=== PATIENT | male | born 1950 | race Two or more races ===

== ENCOUNTER 2025-06-03 14:25 | Inpatient (IN) | payer OTHER, MEDICAID ==
[~2025-06-03] VITALS: Ht 172.7 cm; Wt 73.4 kg
[2025-06-03] VITALS (15 sets, daily range): BP systolic 82–125; BP diastolic 49–85; PULSE 59–101; RESP 7–26; TEMP 97.3–97.9; O2SAT 91–100
--- NOTE | 2025-06-03 14:48 | ED.PDOC ---
GI ASSESSMENT HPI Comments 74 y/o M, presents to the ED for CC of abdominal pain. Patient states, he has been experiencing diffuse abdominal pain sudden onset, 1000 today (06/03/25). Patient relays, to have further associated symptoms of nausea. Patient denies vomiting, diarrhea, constipation, or urinary symptoms. No other symptoms or modifying factors are present at this time. Chief Complaint: Abdominal Pain Time Seen by MD: 14:45 Reviewed Notes: Nurses Notes, Medications, Allergies Allergies: Coded Allergies: NO KNOWN ALLERGIES (Unverified , 06/03/25) Information Source: Patient Mode of Arrival: Wheelchair Timing: Hours Duration: Since onset Prehospital treatment: None Vomitus: None Stool: Normal Severity: Moderate Recent: None Recent Hx of: None Pain Location: Diffuse Modifying Factors: Nothing Associated sign and symptoms: Nausea, Abdominal Pain Past Medical History PAST MEDICAL HISTORY: Denies Surgical History: Denies all surgeries Family History Family History: Unknown Social History Smoker: Non-Smoker Alcohol: Denies ETOH Use Drugs: Denies Drug Use Lives In: Home Constitutional: denies: chills, diaphoresis, fatigue, fever, malaise, sweats, weakness, others EENTM: denies: blurred vision, double vision, ear bleeding, ear discharge, ear drainage, ear pain, ear ringing, eye pain, eye redness, hearing loss, mouth pain, mouth swelling, nasal discharge, nose bleeding, nose congestion, nose pain, photophobia, tearing, throat pain, throat swelling, voice changes, others Respiratory: denies: cough, hemoptysis, orthopnea, SOB at rest, shortness of breath, SOB with excertion, stridor, wheezing, others Cardiovascular: denies: chest pain, dizzy spells, diaphoresis, Dyspnea on exertion, edema, irregular heart beat, left arm pain, lightheadedness, palpitations, PND, syncope, others Gastrointestinal: reports: abdominal pain, nausea; denies: abdomen distended, blood streaked bowels, constipated, diarrhea, dysphagia, difficulty swallowing, hematemesis, melena, poor appetite, poor fluid intake, rectal bleeding, rectal pain, vomiting, others Genitourinary: denies: burning, dysuria, flank pain, frequency, hematuria, incontinence, penile discharge, penile sore, pain, testicle pain, testicle swelling, urgency, others Neurological: denies: dizziness, fainting, headache, left sided numbness, left sided weakness, numbness, paresthesia, pre-existing deficit, right sided numbness, right sided weakness, seizure, speech problems, tingling, tremors, weakness, others Musculoskeletal: denies: back pain, gout, joint pain, joint swelling, muscle pain, muscle stiffness, neck pain, others Integumetry: denies: bruises, change in color, change in hair/nails, dryness, laceration, lesions, lumps, rash, wounds, others Allergic/Immunocompromised: denies: Difficulty Healing, Frequent Infections, Hives, Itching, others Hematologic/Lymphatic: denies: anemia, blood clots, easy bleeding, easy bruising, swollen glands, others Endocrine: denies: excessive hunger, excessive sweating, excessive thirst, excessive urination, flushing, intolerance to cold, intolerance to heat, unexplained weight gain, unexplained weight loss, others Psychiatric: denies: anxiety, bipolar disorder, depression, hopeless, panic disorder, schizophrenia, sleepless, suicidal, others All Other Systems: Reviewed and Negative Physical Exam General Appearance: Moderate Distress HEENT: Normal ENT Inspection, Pharynx Normal, TMs Normal Neck: Full Range of Motion, Non-Tender, Normal, Normal Inspection Respiratory: Chest Non-Tender, Lungs Clear, No Accessory Muscle Use, No Respiratory Distress, Normal Breath Sounds Cardiovascular: No Edema, No JVD, No Murmur, No Gallop, Normal Peripheral Pu lses, Regular Rate/Rhythm Breast Exam: Deferred Gastrointestinal: No Organomegaly, Non Tender, No Pulsatile Mass, Normal Bowel Sounds, Soft Genitalia: Deferred Pelvic: Deferred Rectal: Deferred Extremities: No calf tenderness, Normal capillary refill, Normal inspection, Normal range of motion, Non-tender, No pedal edema Musculoskeletal : Apperance: Normal Neurologic: Alert, bellows assembler II-XII nml as Tested, No Motor Deficits, Normal Affect, Normal Mood, No Sensory Deficits Cerebellar Function: Normal Reflexes: Normal Skin: Dry, Normal Color, Warm Peripheral Pulses: 3+ Radial (R), 3+ Radial (L) Lymphatic: No Adenopathy Was a procedure done? Was a procedure done?: No GI differential Dx Differential Diagnosis: Constipation, Diverticular disease, Esophagitis, Gastritis/PUD, Gastroenteritis, Electrolyte Imbalance, Bacterial, Viral X-Ray, Labs, Meds, VS Vital Signs Date Time Temp Pulse Resp B/P (MAP) Pulse Ox O2 Delivery O2 Flow Rate FiO2 06/03/25 15:14 100 18 152/94 (113) 98 06/03/25 15:14 100 18 98 Room Air 06/03/25 14:38 84 06/03/25 14:26 97.2 90 18 150/90 92 97.2 Lab Test 06/03/25 15:30 06/03/25 15:11 Range/Units Lactic Acid Level Pending White Blood Count 18.9 H 4.4-10.8 10^3/uL Red Blood Count 4.91 4.5-5.90 10^6/uL Hemoglobin 15.0 13.5-17.5 g/dL Hematocrit 45.4 41.0-53.0 % Mean Corpuscular Volume 92.6 80.0-100.0 fL Mean Corpuscular Hemoglobin 30.6 28.0-32.0 pg Mean Corpuscular Hemoglobin Concent 33.0 32.0-36.0 g/dL Red Cell Distribution Width 12.8 11.8-14.3 % Platelet Count 329 140-450 10^3/uL Mean Platelet Volume 7.8 6.9-10.8 fL Neutrophils (%) (Auto) 87.8 H 37.0-80.0 % Lymphocytes (%) (Auto) 8.8 L 10.0-50.0 % Monocytes (%) (Auto) 2.5 0.0-12.0 % Eosinophils (%) (Auto) 0.6 0.0-7.0 % Basophils (%) (Auto) 0.3 0.0-2.0 % Neutrophils # (Auto) 16.6 H 1.6-8.6 10 ^3/uL Lymphocytes # (Auto) 1.7 0.4-5.4 10 ^3/uL Monocytes # (Auto) 0.5 0-1.3 10 ^3/uL Eosinophils # (Auto) 0.1 0-0.8 10 ^3/uL Basophils # (Auto) 0.1 0-0.2 10 ^3/uL Nucleated Red Blood Cells 0.1 % Sodium Level 141 136-145 mmol/L Potassium Level 3.6 3.5-5.1 mmol/L Chloride Level 102 98-107 mmol/L Carbon Dioxide Level 28 20-31 mmol/L Anion Gap 11 5-15 Blood Urea Nitrogen 11 9-23 mg/dL Creatinine 1.04 0.700-1.30 mg/dL Glomerular Filtration Rate Calc 76 >90 mL/min BUN/Creatinine Ratio 10.6 10.0-20.0 Serum Glucose 194 H 74-106 mg/dL Calcium Level 9.4 8.7-10.4 mg/dL Total Bilirubin 0.6 0.2-1.0 mg/dL Aspartate Amino Transferase (AST) 18 13-40 U/L Alanine Aminotransferase (ALT) 11 7-40 U/L Alkaline Phosphatase 95 46-116 U/L Troponin I High Sensitivity 17 </=54 ng/L Total Protein 7.5 5.7-8.2 g/dL Albumin 4.2 3.2-4.8 g/dL Patient alert. Complaining of abdominal pain. Vitals stable. Answering questions. Blood pressure slightly elevated. Was given clonidine. Possibly will need colonoscopy. Explained to the patient. Continue to be monitoring. Time of 1ST Reevaluation: 15:15 Reevaluation 1ST: Unchanged Patient Education/Counseling: Diagnosis, Treatment Family Education/Counseling: No Family Present SEPSIS Sepsis Screen Date sepsis recognized/suspect: Jun 03, 2025 Time Sepsis recognized/suspect: 1428 Recent Procedure: No On Antibiotic Therapy: No Respiratory Rate >20: No Heart Rate >90: No Temp<36 C (96.8 F) or >38.3 C: No SBP <90 or MAP <65 mmHG: No New Acute Mental Status Change: No Is the patient on CPAP, BIPAP,: No Physician Orders Electrocardigram (06/03/25 14:31) Ct Ab Pel Wo Con-No Oral Or Iv (06/03/25 14:41) Urinalysis (06/03/25 14:41) Lactic Acid W/ Reflex Order (06/03/25 15:30) Blood Culture (06/03/25 15:30) Ceftriaxone 1gm/50ml (Rocephin) (06/03/25 15:45) Metronidazole 500mg/100ml (Flagyl 500mg/ (06/03/25 15:45) Sodium Chloride 0.9% (06/03/25 15:45) Sodium Chloride 0.9% (06/03/25 15:45) * Surgical Consult (06/03/25 ) Small Bowel Series-W Gastrogra (06/03/25 15:59) Ng/Orogastric Tube To Lis (06/03/25 15:59) Vital Signs Date Time Temp Pulse Resp B/P (MAP) Pulse Ox O2 Delivery O2 Flow Rate FiO2 06/03/25 15:14 100 18 152/94 (113) 98 06/03/25 15:14 100 18 98 Room Air 06/03/25 14:38 84 06/03/25 14:26 97.2 90 18 150/90 92 97.2 Laboratory Tests Test 06/03/25 15:11 06/03/25 15:30 White Blood Count 18.9 10^3/uL (4.4-10.8) H Lactic Acid Level Pending Departure 1 Departure Time of Disposition: 15:19 Impression: Primary Impression: Incarcerated hernia Additional Impression: Sepsis, unspecified organism Qualified Codes: A41.9 - Sepsis, unspecified organism Disposition: ADMITTED INPATIENT Admit to: Med Surg Condition: Guarded Critical Care Note Critical Care Time?: Yes (90 min-critical care time only) Stability Stability form required: No Heart Score Heart Score: Heart Score Response (Comments) Value History Slightly Suspicious 0 EKG Normal 0 Age >65 2 Risk Factors >3 or Hx ASHD 2 Troponin Normal limit 0 Total 4 I personally scribed for MALVIN EVANS MD ([email or web address]) on 06/03/25 at 14:47. Electronically submitted by Deana Hennessy [email or web address]). MALVIN EVANS MD Jun 03, 2025 14:47
[2025-06-03 15:18] LABS: Hematocrit 45.4 % (41.0-53.0); Hemoglobin 15.0 g/dL (13.5-17.5); Mean Corpuscular Hemoglobin 30.6 pg (28.0-32.0); Mean Corpuscular Volume 92.6 fL (80.0-100.0); Nucleated Red Blood Cells % 0.1 %
[2025-06-03 15:32] LABS: Alanine Aminotransferase 11 U/L (7-40); Albumin 4.2 g/dL (3.2-4.8); Alkaline Phosphatase 95 U/L (46-116); Anion Gap 11 (5-15); BUN/Creatinine Ratio 10.6 (10.0-20.0); Bilirubin, Total 0.6 mg/dL (0.2-1.0); Blood Urea Nitrogen 11 mg/dL (9-23); Calcium 9.4 mg/dL (8.7-10.4); Carbon Dioxide 28 mmol/L (20-31); Chloride 102 mmol/L (98-107); Glucose 194 mg/dL (74-106); Potassium 3.6 mmol/L (3.5-5.1); Sodium 141 mmol/L (136-145); Total Protein 7.5 g/dL (5.7-8.2)
[2025-06-03] MEDS: SODIUM CHLORIDE 0.9% 1,000 ML IV ONE ×2 (15:45→16:15)
--- NOTE | 2025-06-03 15:47 | DVH ---
Exam: CT CT AB PEL WO CON-NO ORAL OR IV History: Colitis. Comparison Study: None Technique: Multidetector spiral CT of the abdomen and pelvis was performed from lung bases to pubic s ymphysis. Imaging was performed without intravenous contrast. Coronal and sagittal multiplanar reform ats were obtained from the axial data set by the technologist. Radiation Dose : 1. Abdomen/Pelvis: CTDIvol 11.1 mGy, DLP 674.1 mGy*cm. Findings: Evaluation of vasculature and solid organs is limited due to lack of intravenous contrast use. Lung Bases: Moderate right pleural effusion. Visualized portions of the heart and pericardium are unr emarkable. Liver: The liver is small with nodular contour. Gallbladder and Biliary Tree: The gallbladder is unremarkable. No intrahepatic or extrahepatic bilia ry ductal dilatation. Spleen: Unremarkable Pancreas: The pancreas is grossly unremarkable. Adrenal Glands: There is a 1.4 cm low-density left adrenal nodule. The right adrenal gland shows thi ckening. Kidneys: Bilateral renal cysts. There is a 5 mm nonobstructive left renal calculus. GI tract: The stomach is grossly normal in appearance. There is a left inguinal hernia containing sma ll bowel loops. There is dilatation of the bowel loops within the hernia with mesenteric edema and m ild mucosal thickening. Sigmoid colon is also contained in the left inguinal hernia. There is mild mu cosal thickening of the rectum. No acute appendicitis. Peritoneum/mesentery/retroperitoneum. No evidence of free intraperitoneal air. No ascites. No evidenc e of suspicious lymphadenopathy. Abdominal Wall: Unremarkable. Vasculature: The visualized abdominal aorta is normal in size and caliber. Evaluation of abdominal a nd pelvic vessels is limited due to lack of intravenous contrast. Urinary Bladder: Grossly unremarkable for degree of distention. Pelvic Organs: The prostate is enlarged measuring 6.6 cm. Musculoskeletal: No aggressive focal bony lesions, acute fractures or dislocation. Multilevel lumbar spondylosis. IMPRESSION: 1. Left inguinal hernia containing small bowel loops and sigmoid colon. 2. There is dilatation of the small bowel loops within the hernia with mesenteric edema and mild muco allison thickening. Findings highly suspicious for incarcerated bowel. 3. Moderate right pleural effusion. 4. Small liver with nodular contour suspicious for cirrhosis. 5. Prostatomegaly.
[2025-06-03] MEDS: ONDANSETRON HCL 4 MG/2 ML VIAL IV ONE (16:11)
[2025-06-03] MEDS: MORPHINE SULFATE INJ 2 MG/ml SYRG IV ONE (16:15)
[2025-06-03 16:20] LABS: Lactic Acid w/Reflex 2.4 mmol/L (0.4-2.0)
[2025-06-03 16:38] LABS: Urine Protein, UAD Negative (Negative)
--- NOTE | 2025-06-03 17:09 | DVH ---
CHEST RADIOGRAPH Indication: NG TUBE PLACEMTENT VERIFICATION. Technique: Single frontal view of the chest was obtained Comparison: None FINDINGS: Lines and Tubes: Enteric tube is in satisfactory position. Lungs: Elevated right hemidiaphragm with right upper to mid lung zone and right basilar opacity. Mini mal blunting of the right costophrenic angle. No pneumothorax. Cardiomediastinal contours: Unremarkable Bones: No acute osseous abnormality. Punctate densities overlying the neck and left shoulder region w hich are most likely external to the patient. IMPRESSION: Trace right-sided pleural effusion with right upper to mid lung zone and right basilar atelectasis. Enteric tube is in satisfactory position.
[2025-06-03] MEDS: HYDROmorphone HCL 2 MG/ML VL/or syr IV ONE ×2 (17:15→19:00)
[2025-06-03 17:18] LABS: INR 1.02 (0.9-1.15); Partial Thromboplastin Time 26.9 SEC (24.5-34.5); Prothrombin Time 10.8 sec (9.3-11.8)
--- NOTE | 2025-06-03 17:37 | DVHINCON2 ---
Date of service: Jun 03, 2025 Allergies: Coded Allergies: NO KNOWN ALLERGIES (Unverified , 06/03/25) Vital Signs Vital Signs Date Time Temp Pulse Resp B/P (MAP) Pulse Ox O2 Delivery O2 Flow Rate FiO2 06/03/25 16:30 101 26 94 Room Air* 0 21 06/03/25 16:15 170/96 06/03/25 14:26 97.2 97.2 Labs/Diagnostic Data Labs Test 06/03/25 17:15 06/03/25 15:30 06/03/25 15:11 Range/Units Urine Color Light-yellow Yellow Urine Clarity Turbid H Clear Urine pH 7.5 5.0-9.[address] 1.010 1.001-1.035 Urine Protein Negative Negative Urine Ketones Negative Negative Urine Blood Negative Negative /uL Urine Nitrite Negative Negative Urine Bilirubin Negative Negative Urine Urobilinogen Normal Negative mg/dL Urine Leukocyte Esterase Negative Negative /uL Urine RBC 1 0 - 3 /hpf Urine Microscopic WBC 6 H 0-3 /HPF Urine Squamous Epithelial Cells Few <5 /hpf Urine Bacteria None seen None Seen /hpf Urine Glucose Normal Normal mg/dL Lactic Acid Level 2.4 *H 0.4-2.0 mmol/L White Blood Count 18.9 H 4.4-10.8 10^3/uL Red Blood Count 4.91 4.5-5.90 10^6/uL Hemoglobin 15.0 13.5-17.5 g/dL Hematocrit 45.4 41.0-53.0 % Mean Corpuscular Volume 92.6 80.0-100.0 fL Mean Corpuscular Hemoglobin 30.6 28.0-32.0 pg Mean Corpuscular Hemoglobin Concent 33.0 32.0-36.0 g/dL Red Cell Distribution Width 12.8 11.8-14.3 % Platelet Count 329 140-450 10^3/uL Mean Platelet Volume 7.8 6.9-10.8 fL Neutrophils (%) (Auto) 87.8 H 37.0-80.0 % Lymphocytes (%) (Auto) 8.8 L 10.0-50.0 % Monocytes (%) (Auto) 2.5 0.0-12.0 % Eosinophils (%) (Auto) 0.6 0.0-7.0 % Basophils (%) (Auto) 0.3 0.0-2.0 % Neutrophils # (Auto) 16.6 H 1.6-8.6 10 ^3/uL Lymphocytes # (Auto) 1.7 0.4-5.4 10 ^3/uL Monocytes # (Auto) 0.5 0-1.3 10 ^3/uL Eosinophils # (Auto) 0.1 0-0.8 10 ^3/uL Basophils # (Auto) 0.1 0-0.2 10 ^3/uL Nucleated Red Blood Cells 0.1 % Prothrombin Time 10.8 9.3-11.8 sec Prothrombin Time INR 1.02 0.9-1.15 Activated Partial Thromboplast Time 26.9 24.5-34.5 SEC Sodium Level 141 136-145 mmol/L Potassium Level 3.6 3.5-5.1 mmol/L Chloride Level 102 98-107 mmol/L Carbon Dioxide Level 28 20-31 mmol/L Anion Gap 11 5-15 Blood Urea Nitrogen 11 9-23 mg/dL Creatinine 1.04 0.700-1.30 mg/dL Glomerular Filtration Rate Calc 76 >90 mL/min BUN/Creatinine Ratio 10.6 10.0-20.0 Serum Glucose 194 H 74-106 mg/dL Calcium Level 9.4 8.7-10.4 mg/dL Total Bilirubin 0.6 0.2-1.0 mg/dL Aspartate Amino Transferase (AST) 18 13-40 U/L Alanine Aminotransferase (ALT) 11 7-40 U/L Alkaline Phosphatase 95 46-116 U/L Troponin I High Sensitivity 17 </=54 ng/L Total Protein 7.5 5.7-8.2 g/dL Albumin 4.2 3.2-4.8 g/dL Assessment 74 YEAR OLD MALE WITH ONE DAY HISTORY OF SEVERE ABDOMINAL PAIN HAS A VERY LARGE INGUINO -SCROTAL HERNIA IN THE LEFT GROIN WHICH IS EXQUISITELY TENDER TO PALPATION, ABDOMEN IS DISTENDED AND TENDER TO PALPATION, WBC IS MARKEDLY ELEVATED WITH LEFT SHIFT AND HIS LACTIC ACID LEVEL IS ELEVATED, HE IS A HEAVY ALCOHOL DRINKER AND HAS CIRRHOTIC LIVER ON CT SCAN , HE JUST HAD A RIGHT LUNG OPERATION FOR LUNG CANCER OPERATION TO REPAIR INCARCERATED LEFT INGUINAL HERNIA ANSD POSSIBLE BOWEL RESECTION EXPLAINED TO PATGIENT AND HIS FAMILY, QWERE RISKS AND COMPLIC ATIONS. Plan discussed with: Patient, Spouse, Son FISPAIGE MEJIA MD Jun 03, 2025 17:37
[2025-06-03] MEDS ORDERED: ETOMIDATE (2MG/ML) 20ML VIAL IV ONE (18:30)
[2025-06-03] MEDS ORDERED: ONDANSETRON HCL 4 MG/2 ML VIAL ONE (18:30)
[2025-06-03] MEDS ORDERED: LIDOCAINE 2% (LOCAL ANESTH.) PF 5ml SDV ONE (18:30)
[2025-06-03] MEDS ORDERED: HYDROmorphone HCL 2 MG/ML VL/or syr ONE (18:30)
[2025-06-03] MEDS ORDERED: GLYCOPYRROLATE 0.2 MG/ML 1ML VIAL ONE (18:30)
[2025-06-03] MEDS ORDERED: PROPOFOL 10 MG/ML 20 ML IV ONE (18:30)
[2025-06-03] MEDS ORDERED: KETAMINE 50mg/ML 1ml syringe ONE (18:30)
[2025-06-03] MEDS ORDERED: ROCURONIUM 10MG/ML 10ML VIAL IV ONE (18:30)
[2025-06-03] MEDS ORDERED: MIDAZOLAM HCL 2MG/2ML 2ml VIAL (1mg/ml) ONE (18:31)
[2025-06-03] MEDS: LIDOCAINE W/ EPINEPHRINE 1% 20ML VIAL ONE (18:55)
[2025-06-03] MEDS: BUPIVACAINE 0.25% INJ 50ML VIAL ONE (18:56)
[2025-06-03] MEDS: ceFAZolin 1GM/50ML 50 ML IV ONE (19:00)
[2025-06-03] MEDS: HYDROmorphone HCL 2 MG/ML VL/or syr IV PRN (19:10)
[2025-06-03] MEDS ORDERED: fentaNYL CITRATE 100 MCG/2 ML VL IV PRN (19:15)
[2025-06-03] MEDS: ACCU-CHEK COMFORT CURVE STRIP VI ONE (19:15)
[2025-06-03] MEDS ORDERED: MIDAZOLAM HCL 2MG/2ML 2ml VIAL (1mg/ml) IV PRN (19:15)
[2025-06-03] MEDS: MIDAZOLAM DRIP 100 mg/100mL NS 100 ML IV SCH (19:30)
[2025-06-03] MEDS ORDERED: SUGAMMADEX 200mg/2ml Vial (100MG/ML) IV ONE (19:35)
--- NOTE | 2025-06-03 19:39 | DVH ---
CHEST RADIOGRAPH Indication: S/P O.R. INTUBATION Technique: Single frontal view of the chest was obtained Comparison: XY CHEST PORTABLE on DOS: 06/03/25 FINDINGS: Lines and Tubes: Endotracheal tube 7.5 cm above the antonio. Enteric tube below the left diaphragm in the stomach. Lungs: Cardiopulmonary findings not significantly changed from chest x-ray done at 4:34 p.m. On same- day Pleura: No effusion. No pneumothorax. Cardiomediastinal contours: Unremarkable Bones: No acute osseous abnormality. IMPRESSION: 1. Endotracheal tube 7.5 cm above the antonio. 2. Enteric tube below the left diaphragm in the stomach. 3. No significant change in the cardiopulmonary findings from chest x-ray of 1634 same day..
[2025-06-03] MEDS: fentaNYL CITRATE 100 MCG/2 ML VL ONE (19:51)
--- NOTE | 2025-06-03 20:46 | DVHOP ---
DATE OF SURGERY: 06/03/2025 PREOPERATIVE DIAGNOSIS: Incarcerated left inguinal hernia with small bowel obstruction. POSTOPERATIVE DIAGNOSIS: Incarcerated left inguinal hernia with small bowel obstruction. SURGEON: Dwight Ramirez MD FITNESS AND WELLNESS INSTRUCTOR: Chaitanya Smith NP ANESTHESIA: General endotracheal. ANESTHESIOLOGIST: Dr. Hernandez. PROCEDURE: Repair of incarcerated left inguinal scrotal hernia. DESCRIPTION OF PROCEDURE: The patient has a giant left inguinal scrotal hernia containing small bowel and colon. He has been complaining of abdominal pain. He has on CT scan been found to have an incarcerated left inguinal hernia. Taken to the operating room. General anesthesia administered by Dr. Hernandez. Abdomen and scrotum and groin were prepped and draped. Incision was made over the inguinal area and deepened with electrocautery onto the fibers of the external oblique aponeurosis. The external ring was identified, tremendous amount of inflammatory changes and attenuation of normal anatomy was encountered. The inguinal ligament was divided. The ilioinguinal nerve was identified, reflected, and protected. The hernia was then encircled with a [place] drain and retracted laterally. The sac was opened and contained numerous loops of small bowel and colon and hemorrhagic fluid. The bowel appeared viable. It was reduced into the peritoneal cavity. The hernia sac was from cremasteric fibers and from the cord structures. It was twisted on itself, traced high up into the internal inguinal ring where it was doubly ligated. The excess peritoneum was excised and submitted. The hernia floor was repaired using nonabsorbable sutures through conjoined tendon and reflecting portion of the Poupart's ligament. The repair was carried out to the internal ring where it was allowing the insertion of a forceps in order not to compress the cord vasculature. Testicle was then returned into its normal anatomical position. A Ronnie-Browning drain was placed into the scrotum adjacent to the testicle and exteriorized through the incision. Following assurance of complete hemostasis, closure was accomplished utilizing 2-0 Monocryl sutures, Dermabond glue, and Steri-Strips. The patient remained stable throughout the procedure. He left the operating room following an accurate needle and sponge count. His and son were thoroughly informed in the waiting room. MD KISHOR Marx/HOSEA TID: [id number] RECEIPT: [id number]
[2025-06-03] MEDS: PROPOFOL 100 ML IV ONE (21:00)
[2025-06-03] MEDS: PROPOFOL 100 ML IV SCH (21:20)
[2025-06-03] MEDS: fentaNYL Drip 2500mCg/250mlNS 250 ML IV SCH (21:20)
[2025-06-03] MEDS ORDERED: DEXTROSE (50%) 50ML SYRG IV PRN (21:30)
[2025-06-03] MEDS ORDERED: ONDANSETRON HCL 4 MG/2 ML VIAL IV PRN (21:30)
[2025-06-03] MEDS ORDERED: MORPHINE SULFATE INJ 2 MG/ml SYRG IV PRN (21:30)
[2025-06-03] MEDS ORDERED: NITROGLYCERIN 0.4 MG SL TAB SL PRN (21:30)
[2025-06-03] MEDS ORDERED: ACETAMINOPHEN 650 MG RECT SUPP PR PRN (21:30)
--- NOTE | 2025-06-03 21:30 | DVHHP2 ---
History of Present Illness Reason for Visit: Incarcerated hernia History of Present Illness The patient is a 74-year-old male with past medical history of diabetes mellitus, sleep apnea, hypertension, hyperlipidemia, lung cancer scheduled chemo on 06/14, and thyroid disease who presented to [facility] ED with complaint of abdominal pain. Patient reports, he has been experiencing diffuse abdominal pain sudden onset, rating 8/10 numeric scale, associated with nausea. Patient was seen and evaluated in the ED, laboratory data shows WBC 18.9, platelets 329, sodium 141, potassium 3.6, BUN 11, creatinine 1.04, GFR 76, glucose 194, hemoglobin A1c 5.7, lactic 3.0, TSH 0.34, troponin 17, blood pressu re 115/78, heart rate 78, temperature 97.4 F, O2 saturation 98% on oxygen. Abdomen/pelvis CT revealing left inguinal hernia containing small bowel loops and sigmoid colon; there is dilatation of the small bowel loops within the hernia with mesenteric edema and mild mucosal thickening, findings highly suspicious for incarcerated bowel. Chest x-ray revealing trace right-sided pleural effusion with right upper to mid lung zone and right bibasilar atelectasis, enteric tube is in satisfactory position. Patient was seen and evaluated by surgical team and was taken to operating room. Patient underwent surgical procedure; repair of incarcerated left inguinal scrotal hernia successfully by Paige Ramirez MD. On my assessment, patient is fully intubated, no diaphoresis, diarrhea, vomiting, fever, no chills. Patient was admitted to intensive care unit for further evaluation and medical management. Past Medical History HLD, DM, HTN, Sleep apnea, Thyroid disease, Lung cancer. Past Surgical History Lung surgery, Hernia repair Family History Reviewed, noncontributory to the management of this case. Past Social History The patient lives at home, denies smoking, alcohol or illicit drugs abuse. Review of Systems Constitutional: Yes: Weakness; No: Fever, Chills, Sweats, Malaise, Other Eyes: No: Pain, Vision change, Conjunctivae inflammation, Eyelid inflammation, Other, Redness ENT: No: Ear pain, Ear discharge, Nose pain, Nose discharge, Nose congestion, Mouth pain, Mouth swelling, Throat pain, Throat swelling, Other Respiratory: No: Cough, Dry, Shortness of breath, SOB with excertion, Wheezing, Hemoptysis, Pleuritic Pain, Sputum, Wheezing, Other Cardiovascular: No: Chest Pain, Palpitations, Orthopnea, Paroxysmal Noc. Dyspnea, Edema, Lt Headedness, Other Gastrointestinal: Nausea, Abdominal Pain; No: Vomiting, Diarrhea, Constipation, Melena, Hematochezia, Other Genitourinary: No Dysuria, No Frequency, No Incontinence, No Hematuria, No Retention, No Other Musculoskeletal: No: other, neck pain, shoulder pain, arm pain, back pain, hand pain, leg pain, foot pain Skin: No: Rash, Lesions, Jaundice, Bruising, Other Neurological: No: Weakness, Numbness, Incoordination, Change in speech, Confusion, Seizures, Other Allergies: Coded Allergies: NO KNOWN ALLERGIES (Unverified , 06/03/25) Medications Current Medications Medications Dose Ordered Sig/Payton Route Start Time Stop Time Status Last Admin Dose Admin Midazolam HCl 100 ml @ 1 mls/hr Q24H IV 06/03/25 19:00 Fentanyl Citrate 250 ml @ 2.5 mls/hr Q24H IV 06/03/25 19:15 Propofol 100 ml @ 2.25 mls/hr Q24H IV 06/03/25 20:00 Exam Vital Signs Vital Signs Date Time Temp Pulse Resp B/P (MAP) Pulse Ox O2 Delivery O2 Flow Rate FiO2 06/03/25 21:14 95 22 100 40 06/03/25 19:10 97.4 97.4 06/03/25 19:10 Mechanical Ventilator 06/03/25 16:30 0 General Appearance: Other (Fully intubated) HEENT: Atraumatic, PERRLA, EOMI, Mucous membr. moist/pink Respiratory: Other (On ventilator) Cardiovascular: Regular rate, Normal S1, Normal S2, No murmurs Abdominal: Normal bowel sounds, Soft, No tenderness, No hepatospenomegaly, No masses Extremities: No clubbing, No cyanosis, No edema, Normal pulses, No tenderness/swelling Skin: No rashes, No significant lesion Neuro: Normal tone, Reflexes 2+, Other (Generalized weakness) Psych/Mental Status: Mental status NL, Other (Unobtainable) Labs/Xrays Labs Test 06/03/25 17:32 06/03/25 17:15 06/03/25 15:11 Range/Units Lactic Acid Level 3.0 *H 0.4-2.0 mmol/L Urine Color Light-yellow Yellow Urine Clarity Turbid H Clear Urine pH 7.5 5.0-9.0 Urine Specific [place] 1.010 1.001-1.035 Urine Protein Negative Negative Urine Ketones Negative Negative Urine Blood Negative Negative /uL Urine Nitrite Negative Negative Urine Bilirubin Negative Negative Urine Urobilinogen Normal Negative mg/dL Urine Leukocyte Esterase Negative Negative /uL Urine RBC 1 0 - 3 /hpf Urine Microscopic WBC 6 H 0-3 /HPF Urine Squamous Epithelial Cells Few <5 /hpf Urine Bacteria None seen None Seen /hpf Urine Glucose Normal Normal mg/dL White Blood Count 18.9 H 4.4-10.8 10^3/uL Red Blood Count 4.91 4.5-5.90 10^6/uL Hemoglobin 15.0 13.5-17.5 g/dL Hematocrit 45.4 41.0-53.0 % Mean Corpuscular Volume 92.6 80.0-100.0 fL Mean Corpuscular Hemoglobin 30.6 28.0-32.0 pg Mean Corpuscular Hemoglobin Concent 33.0 32.0-36.0 g/dL Red Cell Distribution Width 12.8 11.8-14.3 % Platelet Count 329 140-450 10^3/uL Mean Platelet Volume 7.8 6.9-10.8 fL Neutrophils (%) (Auto) 87.8 H 37.0-80.0 % Lymphocytes (%) (Auto) 8.8 L 10.0-50.0 % Monocytes (%) (Auto) 2.5 0.0-12.0 % Eosinophils (%) (Auto) 0.6 0.0-7.0 % Basophils (%) (Auto) 0.3 0.0-2.0 % Neutrophils # (Auto) 16.6 H 1.6-8.6 10 ^3/uL Lymphocytes # (Auto) 1.7 0.4-5.4 10 ^3/uL Monocytes # (Auto) 0.5 0-1.3 10 ^3/uL Eosinophils # (Auto) 0.1 0-0.8 10 ^3/uL Basophils # (Auto) 0.1 0-0.2 10 ^3/uL Nucleated Red Blood Cells 0.1 % Prothrombin Time 10.8 9.3-11.8 sec Prothrombin Time INR 1.02 0.9-1.15 Activated Partial Thromboplast Time 26.9 24.5-34.5 SEC Sodium Level 141 136-145 mmol/L Potassium Level 3.6 3.5-5.1 mmol/L Chloride Level 102 98-107 mmol/L Carbon Dioxide Level 28 20-31 mmol/L Anion Gap 11 5-15 Blood Urea Nitrogen 11 9-23 mg/dL Creatinine 1.04 0.700-1.30 mg/dL Glomerular Filtration Rate Calc 76 >90 mL/min BUN/Creatinine Ratio 10.6 10.0-20.0 Serum Glucose 194 H 74-106 mg/dL Calcium Level 9.4 8.7-10.4 mg/dL Total Bilirubin 0.6 0.2-1.0 mg/dL Aspartate Amino Transferase (AST) 18 13-40 U/L Alanine Aminotransferase (ALT) 11 7-40 U/L Alkaline Phosphatase 95 46-116 U/L Troponin I High Sensitivity 17 </=54 ng/L Total Protein 7.5 5.7-8.2 g/dL Albumin 4.2 3.2-4.8 g/dL PATIENT: DOMINIQUE STRONG ACCT: [id number] UNIT: [id number] : 1950 LOC: ER ROOM / BED: / AGE / SEX: 74 / M ADM STATUS: REG ER SERVICE 1441 ORDERING PHYSICIAN: MALVIN EVANS MD PROCEDURE(s): ABPL - CT AB PEL WO CON-NO ORAL OR IV REASON: colitis ORDER NUMBER(s): [id number], ACCESSION NUMBER(s): [id number] Exam: CT CT AB PEL WO CON-NO ORAL OR IV History: Colitis. Comparison Study: None Technique: Multidetector spiral CT of the abdomen and pelvis was performed from lung bases to pubic symphysis. Imaging was performed without intravenous contrast. Coronal and sagittal multiplanar reformats were obtained from the axial data set by the technologist. Radiation Dose: 1. Abdomen/Pelvis: CTDIvol 11.1 mGy, DLP 674.1 mGy*cm. Findings: Evaluation of vasculature and solid organs is limited due to lack of intravenous contrast use. Lung Bases: Moderate right pleural effusion. Visualized portions of the heart and pericardium are unremarkable. Liver: The liver is small with nodular contour. Gallbladder and Biliary Tree: The gallbladder is unremarkable. No intrahepatic or extrahepatic biliary ductal dilatation. Spleen: Unremarkable Pancreas: The pancreas is grossly unremarkable. Adrenal Glands: There is a 1.4 cm low-density left adrenal nodule. The right adrenal gland shows thickening. Kidneys: Bilateral renal cysts. There is a 5 mm nonobstructive left renal calculus. GI tract: The stomach is grossly normal in appearance. There is a left inguinal hernia containing small bowel loops. There is dilatation of the bowel loops within the hernia with mesenteric edema and mild mucosal thickening. Sigmoid colon is also contained in the left inguinal hernia. There is mild mucosal thickening of the rectum. No acute appendicitis. Peritoneum/mesentery/retroperitoneum. No evidence of free intraperitoneal air. No ascites. No evidence of suspicious lymphadenopathy. Abdominal Wall: Unremarkable. Vasculature: The visualized abdominal aorta is normal in size and caliber. Evaluation of abdominal and pelvic vessels is limited due to lack of intravenous contrast. Urinary Bladder: Grossly unremarkable for degree of distention. Pelvic Organs: The prostate is enlarged measuring 6.6 cm. Musculoskeletal: No aggressive focal bony lesions, acute fractures or dislocation. Multilevel lumbar spondylosis. IMPRESSION: 1. Left inguinal hernia containing small bowel loops and sigmoid colon. 2. There is dilatation of the small bowel loops within the hernia with mese nteric edema and mild mucosal thickening. Findings highly suspicious for incarcerated bowel. 3. Moderate right pleural effusion. 4. Small liver with nodular contour suspicious for cirrhosis. 5. Prostatomegaly. ORDERING PHYSICIAN: MALVIN EVANS MD PROCEDURE(s): CXRP - CHEST PORTABLE REASON: NG TUBE PLACEMTENT VERIFICATION. ORDER NUMBER(s): [id number], ACCESSION NUMBER(s): [id number] CHEST RADIOGRAPH Indication: NG TUBE PLACEMTENT VERIFICATION. Technique: Single frontal view of the chest was obtained Comparison: None FINDINGS: Lines and Tubes: Enteric tube is in satisfactory position. Lungs: Elevated right hemidiaphragm with right upper to mid lung zone and right basilar opacity. Minimal blunting of the right costophrenic angle. No pneumothorax. Cardiomediastinal contours: Unremarkable Bones: No acute osseous abnormality. Punctate densities overlying the neck and left shoulder region which are most likely external to the patient. IMPRESSION: Trace right-sided pleural effusion with right upper to mid lung zone and right basilar atelectasis. Enteric tube is in satisfactory position. ORDERING PHYSICIAN: PAIGE RAMIREZ MD PROCEDURE(s): CXR1 - CHEST XRAY 1 VIEW REASON: S/P O.R. INTUBATION ORDER NUMBER(s): [id number], ACCESSION NUMBER(s): [id number] CHEST RADIOGRAPH Indication: S/P O.R. INTUBATION Technique: Single frontal view of the chest was obtained Comparison: XY CHEST PORTABLE on DOS: 06/03/25 FINDINGS: Lines and Tubes: Endotracheal tube 7.5 cm above the antonio. Enteric tube below the left diaphragm in the stomach. Lungs: Cardiopulmonary findings not significantly changed from chest x-ray done at 4:34 p.m. On same-day Pleura: No effusion. No pneumothorax. Cardiomediastinal contours: Unremarkable Bones: No acute osseous abnormality. IMPRESSION: 1. Endotracheal tube 7.5 cm above the antonio. 2. Enteric tube below the left diaphragm in the stomach. 3. No significant change in the cardiopulmonary findings from chest x-ray of 1634 same day.. SEPSIS Sepsis Screen Date sepsis recognized/suspect: Jun 03, 2025 Time Sepsis recognized/suspect: 1428 Recent Procedure: No On Antibiotic Therapy: No Respiratory Rate >20: No Heart Rate >90: No Temp<36 C (96.8 F) or >38.3 C: No SBP <90 or MAP <65 mmHG: No New Acute Mental Status Change: No Is the patient on CPAP, BIPAP,: No Physician Orders Electrocardigram (06/03/25 14:31) Ct Ab Pel Wo Con-No Oral Or Iv (06/03/25 14:41) Blood Culture (06/03/25 15:30) Sodium Chloride 0.9% (06/03/25 15:45) * Surgical Consult (06/03/25 ) Small Bowel Series-W Gastrogra (06/03/25 15:59) Ng/Orogastric Tube To Lis (06/03/25 15:59) Chest Portable (06/03/25 16:27) Obtain Consent For: (06/03/25 16:38) Npo (Nothing By Mouth) Diet (06/03/25 Dinner) Transfer Orders (06/03/25 18:51) Ng To Lcs (06/03/25 18:51) Insert/Manage Urinary Catheter QSHIFT (06/03/25 18:51) Sequential Compression Device (06/03/25 18:51) Chest Xray 1 View (06/03/25 18:51) Jock Strap Support (06/03/25 18:51) Parvez To Bulb Suction (06/03/25 18:51) Page Hospitalist For Admission (06/03/25 18:51) D5w/Sod Chl 0.45%/Kcl 20meq (06/03/25 19:00) Midazolam Drip 100 Mg/100ml Ns (Versed D (06/03/25 19:00) Rass Sedation Scale Q1HR (06/03/25 18:51) Foundation Coordinator (06/03/25 19:15) Notify Anesth. For Changes: (06/03/25 19:15) Pulse Ox Assessment (06/03/25 19:15) Follow Iv With Surgeon Orders (06/03/25 19:15) Discharge To Room Per Criteria (06/03/25 19:15) Fentanyl Drip 2500mcg/250mlns (06/03/25 19:15) Respiratory Culture W/ Gs (06/03/25 19:38) Abg W/ Co-Ox (06/03/25 20:00) Communication Order (06/03/25 19:38) Propofol (Diprivan) (06/03/25 20:00) Ventilator Orders (06/03/25 20:21) Abg W/ Co-Ox (06/03/25 21:30) Zosyn Extended Infusion (06/03/25 22:00) Metronidazole Ivpb Flagyl (06/03/25 22:00) Famotidine Injection (Pepcid Injection) (06/04/25 10:00) Hemoglobin A1c (06/03/25 21:18) Admit (06/03/25 21:18) Allergies (06/03/25 21:18) Code Status (06/03/25 21:18) Oxygen Per Hour (06/03/25 21:18) Ondansetron Hcl (Zofran) (06/03/25 21:30) Fall Risk Precautions In Place QSHIFT (06/03/25 21:18) Complete Blood Count (06/04/25 04:00) Comprehensive Metabolic Panel (06/04/25 04:00) Condition: Serious (06/03/25 21:18) Maintain Bed Rest (06/03/25 21:18) Nitroglycerin Sublingual (Ntrostat Subli (06/03/25 21:30) Morphine Sulfate Injection (06/03/25 21:30) Stat Ekg For Chest Pain (06/03/25 21:18) Notify Md Of Changes From Base (06/03/25 21:18) Housekeeping Aid For 24 Hours (06/03/25 21:18) Emergency Dysrhythmia Protocol (06/03/25 21:18) Rhythm Strips Once Every Shift (06/03/25 21:18) Oxygen By Nasal Cannula (06/03/25 21:18) Thyroid Stimulating Hormone (06/03/25 21:18) Glucose Blood (Accu-Chek Comfort Curve T (06/04/25 00:00) Mild Sliding Scale Npo - Q6hr (06/04/25 00:00) Dextrose 50% Syringe (06/03/25 21:30) Acetaminophen Suppository (Tylenol Suppo (06/03/25 21:30) Vital Signs Date Time Temp Pulse Resp B/P (MAP) Pulse Ox O2 Delivery O2 Flow Rate FiO2 06/03/25 21:14 95 22 100 40 06/03/25 20:30 115/78 06/03/25 20:30 115/78 06/03/25 20:30 115/78 06/03/25 20:25 78 20 105/71 (82) 98 06/03/25 20:10 84 22 125/85 (98) 100 50 06/03/25 19:55 83 22 115/78 (90) 98 06/03/25 19:40 84 20 125/85 (98) 100 06/03/25 19:30 119/73 06/03/25 19:30 119/73 06/03/25 19:30 119/73 06/03/25 19:25 88 18 123/79 (94) 100 06/03/25 19:20 83 18 118/77 (91) 100 06/03/25 19:15 86 18 139/84 (102) 100 06/03/25 19:10 97.4 84 18 132/83 (99) 100 97.4 06/03/25 19:10 84 18 100 Mechanical Ventilator 06/03/25 19:10 Mechanical Ventilator 06/03/25 19:00 88 18 125/80 (95) 100 100 06/03/25 16:30 101 26 94 Room Air* 0 21 06/03/25 16:15 101 30 170/96 06/03/25 15:14 100 18 152/94 (113) 98 06/03/25 15:14 100 18 98 Room Air 06/03/25 14:38 84 06/03/25 14:26 97.2 90 18 150/90 92 97.2 Laboratory Tests Test 06/03/25 15:11 06/03/25 15:30 06/03/25 17:32 White Blood Count 18.9 10^3/uL (4.4-10.8) H Lactic Acid Level 2.4 mmol/L (0.4-2.0) *H 3.0 mmol/L (0.4-2.0) *H Medications Medications Dose Ordered Sig/Payton Route Start Time Stop Time Status Last Admin Dose Admin Ceftriaxone Sodium 50 ml @ 100 mls/hr ONCE ONCE IV 06/03/25 15:45 06/03/25 16:14 DC 06/03/25 16:11 100 MLS/HR Fentanyl Citrate 100 mcg STK-MED ONCE .ROUTE 06/03/25 18:30 06/03/25 17:25 DC 06/03/25 19:51 100 MCG Hydromorphone HCl 0.5 mg Q10M PRN IV 06/03/25 19:15 06/03/25 19:56 DC 06/03/25 19:40 0.5 MG Metronidazole 100 ml @ 100 mls/hr ONCE ONCE IV 06/03/25 15:45 06/03/25 16:44 DC 06/03/25 17:17 100 MLS/HR Morphine Sulfate 2 mg ONCE ONCE IV 06/03/25 15:45 06/03/25 15:46 DC 06/03/25 16:15 2 MG Ondansetron HCl 4 mg ONCE ONCE IV 06/03/25 15:45 06/03/25 15:46 DC 06/03/25 16:11 4 MG Sodium Chloride 1,000 ml @ 1,000 mls/hr Q1H ONCE IV 06/03/25 15:45 06/03/25 16:44 DC 06/03/25 16:15 1,000 MLS/HR Assessment/Plan Assessment/Plan Incarcerated hernia Acute abdominal pain Acute respiratory failure Sepsis, unspecified organism Generalized weakness Plan 1. Admit to intensive care unit 2. Breathing treatment 3. Pain control management 4. IV antibiotic management 5. Management of fluids and electrolytes 6. Consultation for hospital/ICU website developer 7. Diagnostic test abdomen/pelvis CT 8. DVT prophylaxis on SCDs 9. Repeat labs CBC, CMP in a.m. 10. Home medication reviewed and reconciled 11. Continue with current medical management 12. Treatment plan discussed with patient and RN. Patient verbalized understanding. Plan discussed with: Patient, Other (RN) My Orders Orders - VINCENT CONNELL DNP Procedure Category Date Status Time Zosyn Extended PHA 06/03/25 Verified Infusion 22:00 Metronidazole Ivpb PHA 06/03/25 Verified Flagyl 22:00 Famotidine Injection PHA 06/04/25 Verified (Pepcid Injection) 10:00 Hemoglobin A1c LAB 06/03/25 Verified 21:18 Admit ADMIT 06/03/25 Verified 21:18 Allergies FADY 06/03/25 Verified 21:18 Code Status CODE 06/03/25 Verified 21:18 Oxygen Per Hour RT 06/03/25 Verified 21:18 Ondansetron Hcl PHA 06/03/25 Verified (Zofran) 21:30 Fall Risk Precautions FADY 06/03/[address] 21:18 Complete Blood Count LAB 06/04/25 Verified 04:00 Comprehensive LAB 06/04/25 Verified Metabolic Panel 04:00 Condition: Serious [facility] 06/03/25 Verified 21:18 Maintain Bed Rest FADY 06/03/25 Verified 21:18 Nitroglycerin PHA 06/03/25 Verified Sublingual (Ntrostat 21:30 Morphine Sulfate PHA 06/03/25 Verified Injection 21:30 Stat Ekg For Chest [facility] 06/03/25 Verified Pain 21:18 Notify Md Of Changes [facility] 06/03/25 Verified From Base 21:18 Housekeeping Aid For [facility] 06/03/25 Verified 24 Hours 21:18 Emergency Dysrhythmia FADY 06/03/25 Verified Protocol 21:18 Rhythm Strips Once [facility] 06/03/25 Verified Every Shift 21:18 Oxygen By Nasal RT 06/03/25 Verified Cannula 21:18 Thyroid Stimulating LAB 06/03/25 Verified Hormone 21:18 Glucose Blood PHA 06/04/25 Verified (Accu-Chek Comfort 00:00 Mild Sliding Scale PHA 06/04/25 Verified Npo - Q6hr 00:00 Dextrose 50% Syringe PHA 06/03/25 Verified 21:30 Acetaminophen PHA 06/03/25 Verified Suppository (Tylenol 21:30 Problem List: (1) Incarcerated hernia (2) Acute abdominal pain (3) Acute respiratory distress (4) Sepsis, unspecified organism (5) Generalized weakness Date of Service: Jun 03, 2025 Billing Provider: VINCENT CONNELL DNP Common Visit Codes: [id number] INP/OBS CARE (HIGH) VINCENT CONNELL DNP Jun 03, 2025 21:30
[2025-06-03] MEDS: PIPERACILLIN-TAZOB 3.375GM 100 ML IV SCH (22:00)
[2025-06-03 22:04] LABS: Base Excess -3.5 mmol/L (-2.0-3.0)
[2025-06-03 22:05] LABS: Base Excess -3.4 mmol/L (-2.0-3.0)
[2025-06-03] MEDS: NOREPINEPHRINE 8 MG/250ML KIT 250 ML IV SCH (22:06)
[2025-06-03] MEDS: NOREPINEPHRINE 8 MG/250ML KIT 250 ML IV ONE (23:15)
[2025-06-04] VITALS (109 sets, daily range): BP systolic 79–139; BP diastolic 39–85; PULSE 53–88; RESP 18–29; TEMP 97.3–99.5; O2SAT 93–100
[2025-06-04] MEDS: D5W/SOD CHL 0.45%/KCL 20MEQ 1,000 ML IV ONE (00:08)
[2025-06-04] MEDS: ACCU-CHEK COMFORT CURVE STRIP VI SCH (00:09)
--- NOTE | 2025-06-04 00:55 | DVH ---
CHEST RADIOGRAPH Indication: central line insertion Technique: Single frontal view of the chest was obtained COMPARISON: XY CHEST XRAY 1 VIEW on DOS: 06/03/25; 19:16 hrs FINDINGS / IMPRESSION: Lines and Tubes: Interval insertion of right IJ central venous catheter with its tip projecting over SVC. ETT again noted with its tip approximately 6 cm above the antonio and NG tube extends below the d iaphragm with its tip projecting over gastric body. Lungs / Pleura: Pulmonary vascular congestion. Bibasilar opacities and probable small bilateral effus ions, not significantly changed compared to the prior chest x-ray. No pneumothorax. Cardiomediastinal contours: Unremarkable
[2025-06-04] MEDS: InsuLIN REG 1unit/0.01ml Soln (100units/ml) SC SCH (02:36)
[2025-06-04 03:40] LABS: Hematocrit 37.2 % (41.0-53.0); Hemoglobin 12.7 g/dL (13.5-17.5); Mean Corpuscular Hemoglobin 31.2 pg (28.0-32.0); Mean Corpuscular Volume 91.6 fL (80.0-100.0); Nucleated Red Blood Cells % 0.0 %
[2025-06-04 04:16] LABS: Alkaline Phosphatase 69 U/L (46-116); Anion Gap 12 (5-15); BUN/Creatinine Ratio 12.3 (10.0-20.0); Carbon Dioxide 22 mmol/L (20-31); Potassium 3.6 mmol/L (3.5-5.1); Sodium 142 mmol/L (136-145)
[2025-06-04 04:17] LABS: Bilirubin, Total 0.5 mg/dL (0.2-1.0)
[2025-06-04 04:32] LABS: Alanine Aminotransferase 9 U/L (7-40); Albumin 2.9 g/dL (3.2-4.8); Blood Urea Nitrogen 9 mg/dL (9-23); Calcium 7.8 mg/dL (8.7-10.4); Chloride 108 mmol/L (98-107); Glucose 160 mg/dL (74-106); Total Protein 5.4 g/dL (5.7-8.2)
[2025-06-04 07:08] LABS: Base Excess -1.5 mmol/L (-2.0-3.0)
[2025-06-04] MEDS ORDERED: FAMOTIDINE (10MG/ML) 2ML VL IV SCH (10:00)
--- NOTE | 2025-06-04 11:38 | DVHPN2 ---
Progress Note Date Seen: Jun 04, 2025 Medical Necessity Reason Pt with a Central, PICC or Fol: No Objective vital signs Vital Sign Date Time Temp Pulse Resp B/P (MAP) Pulse Ox O2 Delivery O2 Flow Rate FiO2 06/04/25 11:12 61 20 103/54 (70) 98 30 06/04/25 08:00 Mechanical Ventilator+ 06/04/25 06:45 98.6 209.5 06/03/25 16:30 0 Total Intake and Output 06/03/25 06/03/25 06/04/25 15:00 23:00 07:00 Intake Total 142.75 ml 264.5 ml Output Total 25 ml 1040 ml Balance 117.75 ml -775.5 ml medications Current Medications Medications Dose Ordered Sig/Payton Route Start Time Stop Time Status Last Admin Dose Admin Midazolam HCl 100 ml @ 1 mls/hr Q24H IV 06/03/25 19:00 06/03/25 21:20 2 MLS/HR Fentanyl Citrate 250 ml @ 2.5 mls/hr Q24H IV 06/03/25 19:15 06/03/25 21:20 5 MLS/HR Propofol 100 ml @ 2.25 mls/hr Q24H IV 06/03/25 20:00 06/04/25 02:32 9 MLS/HR Piperacillin Sod/ Tazobactam Sod 100 ml @ 25 mls/hr Q8HR IV 06/03/25 22:00 06/04/25 06:06 25 MLS/HR Metronidazole 100 ml @ 100 mls/hr Q8HR IV 06/03/25 22:00 06/04/25 06:06 100 MLS/HR Diagnostic Test (Pha) 1 strip Q6HR 06/04/25 00:00 06/04/25 06:06 1 STRIP Insulin Human Regular Q6HR SC 06/04/25 00:00 06/04/25 06:08 2 UNITS Dextrose 50 ml UD PRN IV 06/03/25 21:30 Acetaminophen 650 mg Q6HP PRN DC 06/03/25 21:30 Norepinephrine Bitartrate 250 ml @ 3.75 mls/hr Q24H IV 06/03/25 22:00 06/03/25 22:06 3.75 MLS/HR Pantoprazole Sodium 40 mg DAILY IV 06/04/25 10:00 UNV laboratory and microbiology Laboratory Tests 06/04/25 02:30 Test 06/04/25 02:30 Range/Units Serum Glucose 160 H 74-106 mg/dL Problem List/Assessment/Plan Problem List/Assessment/Plan 06/04/25 hemodynamically stable, wound clean and well approximated, abdomen soft and non distended, appears non tender, patient still somewhat sedated and remains ventilated , labs ok, will wean off vent Plan discussed with: Other PAIGE ENRIQUE MD Jun 04, 2025 11:38
--- NOTE | 2025-06-04 12:37 | DVH ---
US CHEST ULTRASOUND HISTORY: right plural effusion COMPARISON(S): XY CHEST PORTABLE on DOS: 06/04/25, XY CHEST XRAY 1 VIEW on DOS: 06/03/25, XY CHEST PORT ABLE on DOS: 06/03/25 TECHNICAL DATA: Transverse and longitudinal images are obtained of the chest. FINDING: IMPRESSION(S): There is a moderate right pleural effusion.
[2025-06-04 12:43] LABS: Base Excess -1.2 mmol/L (-2.0-3.0)
--- NOTE | 2025-06-04 14:16 | ECG ---
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
[2025-06-04] MEDS: PANTOPRAZOLE 40 MG/10 ML VIAL INJ IV SCH (15:09)
[2025-06-04] MEDS: FUROSEMIDE 20 MG/2 ML VIAL IV ONE (15:20)
--- NOTE | 2025-06-04 18:11 | DVHPNRES ---
Progress Note Date Seen: Jun 04, 2025 Resident Creating Document: PADMINI MAHAN RESIDENT Medical Necessity Reason Pt with a Central, PICC or Fol: No Subjective Review of Systems Patient is a 74-year-old male with past medical history of sleep apnea, hypertension, hyperlipidemia, lung cancer, hyperthyroidism who presented to the ED with chief complaints of abdominal pain as per son patient went to [facility] and after returning had a severe 8/10 stomach ache which was radiating to the back, associated with nausea but did not vomit, patient uses CPAP machine at home, was scheduled for chemotherapy on 06/14. Past surgical history: Right upper lobe lobectomy on April 16 2025, hernia repair Family history: Noncontributory Personal history: Smoked since 40 years, ex alcohol user, denies any drugs Patient seen in the ICU. Patient is intubated, ventilated with minimal settings. Patient underwent inguinal hernia repair, has a ROBSON drain with serosanguineous fluid. Surgery is following, we will do CPAP trial tomorrow morning. Patient has a right moderate pleural effusion. Objective vital signs Vital Sign Date Time Temp Pulse Resp B/P (MAP) Pulse Ox O2 Delivery O2 Flow Rate FiO2 06/04/25 16:00 20 95 Mechanical Ventilator+ 30 30 06/04/25 16:00 69 06/04/25 15:31 139/85 06/04/25 15:30 99.0 210.2 06/03/25 16:30 0 Total Intake and Output 06/03/25 06/03/25 06/04/25 15:00 23:00 07:00 Intake Total 142.75 ml 313.0 ml Output Total 25 ml 1040 ml Balance 117.75 ml -727.0 ml medications Current Medications Medications Dose Ordered Sig/Payton Route Start Time Stop Time Status Last Admin Dose Admin Midazolam HCl 100 ml @ 1 mls/hr Q24H IV 06/03/25 19:00 06/03/25 21:20 2 MLS/HR Fentanyl Citrate 250 ml @ 2.5 mls/hr Q24H IV 06/03/25 19:15 06/03/25 21:20 5 MLS/HR Propofol 100 ml @ 2.25 mls/hr Q24H IV 06/03/25 20:00 06/04/25 02:32 9 MLS/HR Piperacillin Sod/ Tazobactam Sod 100 ml @ 25 mls/hr Q8HR IV 06/03/25 22:00 06/04/25 15:09 25 MLS/HR Diagnostic Test (Pha) 1 strip Q6HR 06/04/25 00:00 06/04/25 15:09 1 STRIP Insulin Human Regular Q6HR SC 06/04/25 00:00 06/04/25 06:08 2 UNITS Dextrose 50 ml UD PRN IV 06/03/25 21:30 Acetaminophen 650 mg Q6HP PRN [place] 06/03/25 21:30 Norepinephrine Bitartrate 250 ml @ 3.75 mls/hr Q24H IV 06/03/25 22:00 06/03/25 22:06 3.75 MLS/HR Pantoprazole Sodium 40 mg DAILY IV 06/04/25 10:00 06/04/25 15:09 40 MG Albuterol 2.5 mg Q6HR NEB 06/04/25 18:00 Ipratropium Alvin 0.5 mg Q6HR NEB 06/04/25 18:00 Examination General: Mechanically ventilated, sedated, opening his eyes and following commands HEENT: Normocephalic, atraumatic, moist mucous membranes Respiratory/pulmonary: Crackles heard on the right side Cardiovascular: Normal heart sounds S1 and S2 with no associated murmurs Abdomen: Abdomen nondistended, grimacing to abdominal palpation, has ROBSON drain in the right inguinal region Extremities: There is no peripheral edema present at the lower extremities. Peripheral Pulses: 3+ Radial (R). 3+ Radial (L). 3+ Dorsalis pedis (R). 3+ Dorsalis pedis(L) Skin: No rashes or pruritus, there is no sacral edema present at this time. Neurological: Pupils reactive, cough and gag reflex present laboratory and microbiology Laboratory Tests 06/04/25 02:30 Test 06/04/25 02:30 Range/Units Serum Glucose 160 H 74-106 mg/dL Microbiology Date/Time Source Procedure Growth Status 06/03/25 22:00 Nose MRSA Screen - Final Complete 06/03/25 19:31 Sputum Gram Stain - Final Resulted 06/03/25 19:31 Sputum Respiratory Culture - Preliminary Resulted 06/03/25 15:47 Blood Blood Culture - Preliminary NO GROWTH AFTER 24 HOURS OF INCUBATION. Resulted Problem List/Assessment/Plan Problem List/Assessment/Plan Neurology Acute metabolic encephalopathy - intubated, sedated Cardiology Septic shock due to Incarcerated left Inguinal Hernia with small bowel Hypertension Hyperlipidemia - IV Zosyn - - Echo ordered, pending - on Levophed Respiratory Right Moderate pleural effusion Acute hypoxic Hypercapnic respiratory failure status post intubation H/O Sleep apnea History of lung cancer S/P lung surgery - ventilator settings: AC mode , RR 20, TV 450, FiO2 30, peep 5 - CPAP tomorrow morning - albuterol, ipratropium q.6 - Lasix 20 mg once given - Chest US- showed Moderate Right Pleural effusion -Chest xray daily GI Septic shock likely due to complicated hernia Incarcerated left Inguinal Hernia with small bowel Status post repair of inguinal hernia - Surgery consulted , following - D/c metronidazole - IV Zosyn Q8 - IV fluids - NPO Renal/ Electrolytes Lactic Acidosis - Monitor labs Endocrine H/O Hyperthyroidism - Currently Euthyroid - patient taking methimazole as home medication Hematology Mild Normocytic Hypochromic anemia -monitor hemoglobin Lines / Tubes / Devices Airway: Intubated via ETT on 06/04 Vascular Access: Central line 06/04 Drips: Versed, fentanyl, Levophed Prophylaxis / Supportive Care DVT Prophylaxis: SCD GI Prophylaxis: Protonix. Goals of care discussed with the patient family for more than 29 minutes: Full code state Critical time spent 83 minutes. Patient care updated to son, addressed all concerns. Critical care time spent excluding procedures 83 minutes Plan discussed with Dr. De Luna and RN Plan discussed with: Spouse, Son My Orders My Orders Orders - PADMINI MAHAN Procedure Category Date Status Time Ventilator Orders RT 06/04/25 Transmitted 10:03 Abg W/ Co-Ox RT 06/04/25 Logged 11:03 Chest Ultrasound US 06/04/25 Resulted 12:11 Echo 2d Mode Cardiac US 06/04/25 Logged DOP 16:40 Albuterol Medneb PHA 06/04/25 In Process (Ventolin Medneb) 18:00 Ipratropium Medneb PHA 06/04/25 In Process (Atrovent Medneb) 18:00 Date of Service: Jun 04, 2025 Billing Provider: STACIA CARRENO MD Common Visit Codes: [id number] CARE 30-74 MIN, [id number] CARE-EACH +30MIN PADMINI MAHAN Jun 04, 2025 18:11 STACIA CARRENO MD Jun 05, 2025 11:52
[2025-06-04] MEDS: IPRATROPIUM BROM 0.5 MG/2.5ML INH SOL NEB SCH (18:27)
[2025-06-04] MEDS: ALBUTEROL SULF 2.5 MG/0.5ML(0.5%) NEB SOLN NEB SCH (18:27)
[2025-06-04 20:27] LABS: Free T3 2.54 pg/mL (2.3-4.2); Free T4 (Free Thyroxine) 1.16 ng/dL (0.89-1.76)
[2025-06-05] VITALS (101 sets, daily range): BP systolic 91–158; BP diastolic 56–118; PULSE 58–92; RESP 14–29; TEMP 45.9; O2SAT 94–100
[2025-06-05] MEDS ORDERED: AMLO1TAB22 PO (02:22)
[2025-06-05] MEDS ORDERED: LOSA-533 PO (02:25)
[2025-06-05] MEDS ORDERED: TAMS0.4C39 PO (02:25)
[2025-06-05] MEDS ORDERED: FINA5TAB4 PO (02:25)
[2025-06-05] MEDS ORDERED: ATOR20TA50 PO (02:25)
[2025-06-05] MEDS ORDERED: METH5TAB98 PO (02:25)
[2025-06-05] MEDS ORDERED: HYDR25TA4 PO (02:25)
[2025-06-05 02:48] LABS: Hematocrit 35.0 % (41.0-53.0); Hemoglobin 12.0 g/dL (13.5-17.5); Mean Corpuscular Hemoglobin 31.5 pg (28.0-32.0); Mean Corpuscular Volume 91.9 fL (80.0-100.0); Nucleated Red Blood Cells % 0.0 %
--- NOTE | 2025-06-05 04:46 | DVH ---
CHEST RADIOGRAPH Indication: on vent Technique: Single frontal view of the chest was obtained COMPARISON: XY CHEST PORTABLE on DOS: 06/04/25, XY CHEST XRAY 1 VIEW on DOS: 06/03/25, XY CHEST PORTABLE on DOS: 06/03/25 FINDINGS: Lines and Tubes: Unchanged. Lungs: Mildly progressive diffuse predominantly right hemithoracic pulmonary airspace disease and small bilateral pleural effusions. No pneumothorax. Cardiomediastinal contours: Unremarkable Bones: Unremarkable IMPRESSION: 1. Mildly progressive diffuse predominantly right hemithoracic pulmonary airspace disease and small bilateral pleural effusions. 2. Lines and tubes unchanged.
[2025-06-05 04:47] LABS: Alanine Aminotransferase 10 U/L (7-40); Alkaline Phosphatase 63 U/L (46-116); Anion Gap 9 (5-15); BUN/Creatinine Ratio 13.5 (10.0-20.0); Bilirubin, Total 0.6 mg/dL (0.2-1.0); Blood Urea Nitrogen 13 mg/dL (9-23); Carbon Dioxide 26 mmol/L (20-31); Magnesium 1.8 mg/dL (1.6-2.6); Sodium 143 mmol/L (136-145)
[2025-06-05 05:20] LABS: Albumin 2.7 g/dL (3.2-4.8); Calcium 7.5 mg/dL (8.7-10.4); Chloride 108 mmol/L (98-107); Glucose 140 mg/dL (74-106); Potassium 3.5 mmol/L (3.5-5.1); Total Protein 4.8 g/dL (5.7-8.2)
[2025-06-05 07:41] LABS: Base Excess -3.1 mmol/L (-2.0-3.0)
[2025-06-05] MEDS: MAGNESIUM SULFATE 1GM/100ML 100 ML IV ONE (09:46)
[2025-06-05] MEDS: FUROSEMIDE 20 MG/2 ML VIAL IV ONE ×2 (09:46→12:09)
[2025-06-05] MEDS ORDERED: VANCOMYCIN PER PHARMACY 0 MG IV SCH (10:30)
--- NOTE | 2025-06-05 10:32 | DVHPN2 ---
Progress Note Date Seen: Jun 05, 2025 Medical Necessity Reason Pt with a Central, PICC or Fol: No Objective vital signs Vital Sign Date Time Temp Pulse Resp B/P (MAP) Pulse Ox O2 Delivery O2 Flow Rate FiO2 06/05/25 09:46 144/87 06/05/25 09:13 79 20 97 30 06/05/25 06:45 99.1 210.4 06/05/25 06:13 Mechanical Ventilator+ 06/03/25 16:30 0 Total Intake and Output 06/04/25 06/04/25 06/05/25 14:59 22:59 06:59 Intake Total 260.25 ml 211.5 ml 169.0 ml Output Total 710 ml 520 ml Balance 260.25 ml -498.5 ml -351.0 ml medications Current Medications Medications Dose Ordered Sig/Payton Route Start Time Stop Time Status Last Admin Dose Admin Midazolam HCl 100 ml @ 1 mls/hr Q24H IV 06/03/25 19:00 06/03/25 21:20 2 MLS/HR Fentanyl Citrate 250 ml @ 2.5 mls/hr Q24H IV 06/03/25 19:15 06/03/25 21:20 5 MLS/HR Propofol 100 ml @ 2.25 mls/hr Q24H IV 06/03/25 20:00 06/04/25 02:32 9 MLS/HR Piperacillin Sod/ Tazobactam Sod 100 ml @ 25 mls/hr Q8HR IV 06/03/25 22:00 06/05/25 05:51 25 MLS/HR Diagnostic Test (Pha) 1 strip Q6HR 06/04/25 00:00 06/05/25 05:51 1 STRIP Dextrose 50 ml UD PRN IV 06/03/25 21:30 Acetaminophen 650 mg Q6HP PRN [place] 06/03/25 21:30 Norepinephrine Bitartrate 250 ml @ 3.75 mls/hr Q24H IV 06/03/25 22:00 06/03/25 22:06 3.75 MLS/HR Pantoprazole Sodium 40 mg DAILY IV 06/04/25 10:00 06/05/25 09:46 40 MG Albuterol 2.5 mg Q6HR NEB 06/04/25 18:00 06/05/25 05:22 2.5 MG Ipratropium [place] 0.5 mg Q6HR NEB 06/04/25 18:00 06/05/25 05:22 0.5 MG laboratory and microbiology Laboratory Tests 06/05/25 02:00 Test 06/05/25 02:00 Range/Units Serum Glucose 140 H 74-106 mg/dL Problem List/Assessment/Plan Problem List/Assessment/Plan 06/04/25 hemodynamically stable, wound clean and well approximated, abdomen soft and non distended, appears non tender, patient still somewhat sedated and remains ventilated , labs ok, will wean off vent 06/05/25 awake,responsive, remains intubated(?) wound clean and well approximated, no scrotal swelling, drainage serous, patient has post thoracotomy changes in left hemithorax, negligible pleural effusions bilaterally, i believe he can be extubated Plan discussed with: Patient, Other PAIGE ENRIQUE MD Jun 05, 2025 10:32
[2025-06-05] MEDS: VANCOMYCIN 1.25GM/250ML 250 ML IV ONE (11:46)
[2025-06-05] MEDS ORDERED: FUROSEMIDE 20 MG/2 ML VIAL IV ONE (12:00)
[2025-06-05 13:37] LABS: Base Excess -1.3 mmol/L (-2.0-3.0)
[2025-06-05] MEDS: POTASSIUM CHL 20MEQ/100ML 100 ML IV SCH (13:43)
--- NOTE | 2025-06-05 16:32 | DVHPNRES ---
Progress Note Date Seen: Jun 05, 2025 Resident Creating Document: PADMINI MAHAN RESIDENT Medical Necessity Reason Pt with a Central, PICC or Fol: No Subjective Review of Systems Patient is a 74-year-old male with past medical history of sleep apnea, hypertension, hyperlipidemia, lung cancer, hyperthyroidism who presented to the ED with chief complaints of abdominal pain as per son patient went to [facility] and after returning had a severe 8/10 stomach ache which was radiating to the back, associated with nausea but did not vomit, patient uses CPAP machine at home, was scheduled for chemotherapy on 06/14. Past surgical history: Right upper lobe lobectomy on April 16 2025, hernia repair Family history: Noncontributory Personal history: Smoked since 40 years, ex alcohol user, denies any drugs 06/04/25: Patient seen in the ICU. Patient is intubated, ventilated with minimal settings. Patient underwent inguinal hernia repair, has a ROBSON drain with serosanguineous fluid. Surgery is following, we will do CPAP trial tomorrow morning. Patient has a right moderate pleural effusion. 06/05/25: patient seen in ICU. Patient was extubated today, on 8 L oxygen. Patient is alert, oriented, following commands, has no new complaints, is not in any acute abdominal pain. surgery following, Objective vital signs Vital Sign Date Time Temp Pulse Resp B/P (MAP) Pulse Ox O2 Delivery O2 Flow Rate FiO2 06/05/25 16:00 30 06/05/25 16:00 20 98 Cool Aerosol 8 06/05/25 15:00 99.0 81 136/83 (100) 210.2 Total Intake and Output 06/04/25 06/04/25 06/05/25 14:59 22:59 06:59 Intake Total 260.25 ml 211.5 ml 169.0 ml Output Total 710 ml 520 ml Balance 260.25 ml -498.5 ml -351.0 ml medications Current Medications Medications Dose Ordered Sig/Payton Route Start Time Stop Time Status Last Admin Dose Admin Midazolam HCl 100 ml @ 1 mls/hr Q24H IV 06/03/25 19:00 06/03/25 21:20 2 MLS/HR Fentanyl Citrate 250 ml @ 2.5 mls/hr Q24H IV 06/03/25 19:15 06/05/25 11:58 5 MLS/HR Propofol 100 ml @ 2.25 mls/hr Q24H IV 06/03/25 20:00 06/04/25 02:32 9 MLS/HR Piperacillin Sod/ Tazobactam Sod 100 ml @ 25 mls/hr Q8HR IV 06/03/25 22:00 06/05/25 13:38 25 MLS/HR Diagnostic Test (Pha) 1 strip Q6HR 06/04/25 00:00 06/05/25 16:14 1 STRIP Dextrose 50 ml UD PRN IV 06/03/25 21:30 Acetaminophen 650 mg Q6HP PRN [place] 06/03/25 21:30 Norepinephrine Bitartrate 250 ml @ 3.75 mls/hr Q24H IV 06/03/25 22:00 06/03/25 22:06 3.75 MLS/HR Pantoprazole Sodium 40 mg DAILY IV 06/04/25 10:00 06/05/25 09:46 40 MG Albuterol 2.5 mg Q6HR NEB 06/04/25 18:00 06/05/25 11:25 2.5 MG Ipratropium [place]mith 0.5 mg Q6HR NEB 06/04/25 18:00 06/05/25 11:25 0.5 MG Vancomycin HCl 0 ml @ 0 mls/hr PER PHARMACY IV 06/05/25 10:30 Artificial Tears 1 drop Q6HP PRN EACHEYE 06/05/25 16:15 Examination General: Extubated, opening his eyes and following commands HEENT: Normocephalic, atraumatic, moist mucous membranes Respiratory/pulmonary: Crackles heard on the right side Cardiovascular: Normal heart sounds S1 and S2 with no associated murmurs Abdomen: Abdomen nondistended, grimacing to abdominal palpation, has ROBSON drain in the left inguinal region Extremities: There is no peripheral edema present at the lower extremities. Peripheral Pulses: 3+ Radial (R). 3+ Radial (L). 3+ Dorsalis pedis (R). 3+ Dorsalis pedis(L) Skin: No rashes or pruritus, there is no sacral edema present at this time. Neurological: cough and gag reflex present laboratory and microbiology Laboratory Tests 06/05/25 02:00 Test 06/05/25 02:00 Range/Units Serum Glucose 140 H 74-106 mg/dL Microbiology Date/Time Source Procedure Growth Status 06/04/25 16:00 Urine - [place] Urine Culture - Preliminary No growth Resulted 06/03/25 22:00 Nose MRSA Screen - Final Complete 06/03/25 19:31 Sputum Gram Stain - Final Resulted 06/03/25 19:31 Sputum Respiratory Culture - Preliminary Resulted 06/03/25 15:47 Blood Blood Culture - Preliminary NO GROWTH AFTER 48 HOURS OF INCUBATION. Resulted Problem List/Assessment/Plan Problem List/Assessment/Plan Neurology Acute metabolic encephalopathy - intubated, sedated Cardiology Septic shock due to Incarcerated left Inguinal Hernia with small bowel Hypertension Hyperlipidemia - IV Zosyn - added vancomycin - Echo ordered, pending - on Levophed Respiratory Right Moderate pleural effusion Acute hypoxic Hypercapnic respiratory failure status post intubation H/O Sleep apnea History of lung cancer - albuterol, ipratropium q.6 - Lasix 20 mg once given - Chest US- showed Moderate Right Pleural effusion - Chest xray daily - extubated 06/05 - on 8 L oxygen GI Septic shock likely due to complicated hernia Incarcerated left Inguinal Hernia with small bowel Status post repair of inguinal hernia - Surgery consulted , following - D/c metronidazole - IV Zosyn Q8 - added vancomycin - IV fluids - NPO Renal/ Electrolytes Lactic Acidosis - Monitor labs Endocrine H/O Hyperthyroidism - Currently Euthyroid - patient taking methimazole as home medication Hematology Mild Normocytic Hypochromic anemia -monitor hemoglobin Lines / Tubes / Devices Airway: Intubated via ETT on 06/04, extubated 06/05 Vascular Access: Central line 06/04 Drips: Versed, fentanyl, Levophed Prophylaxis / Supportive Care DVT Prophylaxis: SCD GI Prophylaxis: Protonix. Goals of care discussed with the patient family for more than 29 minutes: Full code state Critical time spent 83 minutes. Patient care updated to son, addressed all concerns. Critical care time spent including extubation excluding procedures 87 minutes Plan discussed with Dr. De Luna and RN Plan discussed with: Patient, Spouse My Orders My Orders Orders - PADMINI MAHAN Procedure Category Date Status Time Albuterol Medneb PHA 06/04/25 In Process (Ventolin Medneb) 18:00 Ipratropium Medneb PHA 06/04/25 In Process (Atrovent Medneb) 18:00 Chest Xray 1 View XY 06/05/25 Resulted 04:00 Abg W/ Co-Ox RT 06/05/25 Logged 04:00 Artificial Tear 15ml PHA 06/05/25 In Process Opthalmic (Tears Na 16:15 Dietary Evaluation Review Comments: 1. If GI/EN accessible, TF Vital AF @50ml/hr, providing 90g protein 1440kcal 973ml free water, meeting Pt needs @100% protein and 96% energy 2. Reassess when off intubation 3. [facility] if/when pt extubated, and passes [employer] evaluation 4. Follow PRN Expected Outcomes/Goals: Inproved nutrition status. recover from sepsis Date of Service: Jun 05, 2025 Billing Provider: STACIA CARRENO MD Common Visit Codes: [id number] CARE 30-74 MIN, [id number] CARE-EACH +30MIN PADMINI MAHAN RESIDENT Jun 05, 2025 16:32 STACIA CARRENO MD Jun 06, 2025 14:10
[2025-06-05] MEDS: ARTIFICIAL TEARS 15ml EACHEYE PRN (19:00)
[2025-06-06] VITALS (34 sets, daily range): BP systolic 130–159; BP diastolic 75–100; PULSE 67–94; RESP 18–26; TEMP 99.1–100.4; O2SAT 94–100
[2025-06-06 04:25] LABS: Hematocrit 37.2 % (41.0-53.0); Hemoglobin 12.6 g/dL (13.5-17.5); Mean Corpuscular Hemoglobin 31.0 pg (28.0-32.0); Mean Corpuscular Volume 91.5 fL (80.0-100.0); Nucleated Red Blood Cells % 0.0 %
[2025-06-06 04:42] LABS: Alanine Aminotransferase 11 U/L (7-40); Alkaline Phosphatase 68 U/L (46-116); Anion Gap 11 (5-15); BUN/Creatinine Ratio 13.5 (10.0-20.0); Blood Urea Nitrogen 12 mg/dL (9-23); Calcium 7.9 mg/dL (8.7-10.4); Carbon Dioxide 28 mmol/L (20-31); Chloride 105 mmol/L (98-107); Glucose 107 mg/dL (74-106); Potassium 3.4 mmol/L (3.5-5.1); Sodium 144 mmol/L (136-145); Total Protein 5.4 g/dL (5.7-8.2)
[2025-06-06 04:43] LABS: Albumin 3.0 g/dL (3.2-4.8); Bilirubin, Total 0.8 mg/dL (0.2-1.0)
--- NOTE | 2025-06-06 04:47 | DVH ---
CHEST RADIOGRAPH Indication: post extubation Technique: Single frontal view of the chest was obtained COMPARISON: XY CHEST XRAY 1 VIEW on DOS: 06/05/25, US CHEST ULTRASOUND on DOS: 06/04/25, XY CHEST PORTABLE on DOS: 06/04/25, XY CHEST XRAY 1 VIEW on DOS: 06/03/25, XY CHEST PORTABLE on DOS: 06/03/25 FINDINGS: Lines and Tubes: Enteric catheter and right central venous catheter in satisfactory position. Lungs: Unchanged multifocal right lung airspace disease. Pleura: No effusion.No pneumothorax. Cardiomediastinal contours: Unremarkable Bones: Unremarkable IMPRESSION: Unchanged multifocal right lung airspace disease.
[2025-06-06] MEDS: POTASSIUM CHL 20MEQ/100ML 100 ML IV SCH (06:00)
[2025-06-06 08:27] LABS: Magnesium 1.9 mg/dL (1.6-2.6)
[2025-06-06] MEDS: FUROSEMIDE 40 MG/4 ML VIAL IV ONE (08:50)
--- NOTE | 2025-06-06 10:19 | DVHSR ---
APPROVED REPORT EXAM: Two-dimensional and M-mode echocardiogram with Doppler and color Doppler. Blood Pressure: 123/74 mmHg INDICATION Heart Failure RISK FACTORS Height: 5'8", Weight: 165 DIMENSIONS LVDd 5.6 (3.8-5.7cm) LA (2D) 4.1 (1.9-4.0cm) Aortic Root 3.5 (2.0-3.7cm) LVDs 2.8 (2.5-4.0cm) LA (MM) (1.9-4.0cm) Aortic Cusp Exc 1.9 (1.5-2.0cm) EF (%) 80.0 (55-70%) Rt. Atrium 3.8 (1.9-4.0cm) Asc. Aorta cm IVSd 0.9 (0.7-1.1cm) RV (D) (1.8-2.4cm) PWd 0.8 (0.7-1.1cm) Mitral Valve Mitral Mitral Stenosis E wave 0.64m/s MV Mean GR. mmHg A wave 0.99m/s MV Peak GR. mmHg E/A ratio 0.6 2D MVA cm2 DECEL Time 167ms PRESS 1/2 Time ms Aortic Valve Aortic Valve Aortic Stenosis V1 1.07m/s AO Mean GR. 4mmHg V2 1.45m/s AO Peak GR. 8mmHg LVOT Diameter 2.1 (1.8-2.4cm) Doppler KRYS 2.55cm2 Pulmonic Valve V2 0.96m/s Tricuspid Valve TR Velocity 2.65m/s RVSP 31mmHg Other Information Quality : Technically Limited Rhythm : Technically limited study due to on vent. Conclusion MILD LVH AND MILD LV DIASTOLIC DYSFUNCTION LV EF IS 70% AND IS NORMAL NORMAL VALVES NO EFFUSION NORMAL RV FUNCTION
--- NOTE | 2025-06-06 10:47 | DVHPN2 ---
Subjective Date Seen: Jun 06, 2025 Post op day Post op day: 2 Patient reports: No new complaints Nursing reports: No new complaints General: Normal HNT: Normal Cardiovascular: Normal Respiratory: Normal Gastrointestinal: Normal Genitourinary: Normal Musculoskeletal: Normal Neurological: Normal Objective Vitals Vital Sign Date Time Temp Pulse Resp B/P (MAP) Pulse Ox O2 Delivery O2 Flow Rate FiO2 06/06/25 08:50 163/87 06/06/25 08:00 79 06/06/25 08:00 24 98 Nasal Cannula* 3 32 06/06/25 07:00 99.3 210.7 Total Intake and Output 06/05/25 06/05/25 06/06/25 15:00 23:00 07:00 Intake Total 475 ml 270 ml 130 ml Output Total 1845 ml 720 ml Balance 475 ml -1575 ml -590 ml Medications Current Medications Medications Dose Ordered Sig/Payton Route Start Time Stop Time Status Last Admin Dose Admin Midazolam HCl 100 ml @ 1 mls/hr Q24H IV 06/03/25 19:00 06/03/25 21:20 2 MLS/HR Fentanyl Citrate 250 ml @ 2.5 mls/hr Q24H IV 06/03/25 19:15 06/05/25 11:58 5 MLS/HR Propofol 100 ml @ 2.25 mls/hr Q24H IV 06/03/25 20:00 06/04/25 02:32 9 MLS/HR Piperacillin Sod/ Tazobactam Sod 100 ml @ 25 mls/hr Q8HR IV 06/03/25 22:00 06/06/25 06:00 25 MLS/HR Diagnostic Test (Pha) 1 strip Q6HR 06/04/25 00:00 06/06/25 06:00 1 STRIP Dextrose 50 ml UD PRN IV 06/03/25 21:30 Acetaminophen 650 mg Q6HP PRN [place] 06/03/25 21:30 Norepinephrine Bitartrate 250 ml @ 3.75 mls/hr Q24H IV 06/03/25 22:00 06/03/25 22:06 3.75 MLS/HR Pantoprazole Sodium 40 mg DAILY IV 06/04/25 10:00 06/06/25 08:50 40 MG Albuterol 2.5 mg Q6HR NEB 06/04/25 18:00 06/06/25 07:25 2.5 MG Ipratropium [place] 0.5 mg Q6HR NEB 06/04/25 18:00 06/06/25 07:25 0.5 MG Vancomycin HCl 0 ml @ 0 mls/hr PER PHARMACY IV 06/05/25 10:30 Artificial Tears 1 drop Q6HP PRN EACHEYE 06/05/25 16:15 06/05/25 19:00 1 DROP Vancomycin HCl 250 ml @ 250 mls/hr Q12H IV 06/06/25 11:00 General: Normal Head/Eyes: Normal ENT: Normal Neck: Normal, Supple Lungs: Normal, Normal inspection Cardiovascular: Normal, Regular rate and rhythm Extremities: Normal, No clubbing Neurological: Normal Labs and Microbiology Laboratory Tests 06/06/25 03:50 Test 06/06/25 03:50 Range/Units Serum Glucose 107 H 74-106 mg/dL Ass/Plan Problem List Neurology Acute metabolic encephalopathy - intubated, sedated Cardiology Septic shock due to Incarcerated left Inguinal Hernia with small bowel Hypertension Hyperlipidemia - IV Zosyn - added vancomycin - Echo ordered, pending - on Levophed Respiratory Right Moderate pleural effusion Acute hypoxic Hypercapnic respiratory failure status post intubation H/O Sleep apnea History of lung cancer - albuterol, ipratropium q.6 - Lasix 20 mg once given - Chest US- showed Moderate Right Pleural effusion - Chest xray daily - extubated 06/05 - on 8 L oxygen GI Septic shock likely due to complicated hernia Incarcerated left Inguinal Hernia with small bowel Status post repair of inguinal hernia - Surgery consulted , following - D/c metronidazole - IV Zosyn Q8 - added vancomycin - IV fluids - NPO Renal/ Electrolytes Lactic Acidosis - Monitor labs Endocrine H/O Hyperthyroidism - Currently Euthyroid - patient taking methimazole as home medication Hematology Mild Normocytic Hypochromic anemia -monitor hemoglobin Lines / Tubes / Devices Airway: Intubated via ETT on 06/04, extubated 06/05 Vascular Access: Central line 06/04 Drips: Versed, fentanyl, Levophed Prophylaxis / Supportive Care DVT Prophylaxis: SCD GI Prophylaxis: Protonix. Goals of care discussed with the patient family for more than 29 minutes: Full code state Critical time spent 83 minutes. Patient care updated to son, addressed all concerns. Critical care time spent with extubation excluding procedures 85 minutes Plan discussed with Dr. De Luna and web administrator/Plan s/p left inguinal hernia repair no new complaints no scrotal swelling wound clean dry and intact Plan: full liquid diet DC NGT Prognosis: Good Plan discussed with patient, Nurse Visit Coding Surgery Date of Service if different f: Jun 06, 2025 Billing Provider: PAIGE ENRIQUE MD Surgery Visit Codes: [id number] INP/OBS CARE(HIGH) SHEA MCCABE [employer] Jun 06, 2025 10:47
[2025-06-06] MEDS: VANCOMYCIN 1GM/250ML KIT 250 ML IV SCH (11:16)
[2025-06-06] MEDS: MAGNESIUM SULFATE 1GM/100ML 100 ML IV ONE (11:25)
[2025-06-06] MEDS: SODIUM PHOSPHATES 20 MEQ in SODIUM CHL 0.9% 100 ML IV ONE (13:00)
[2025-06-06] MEDS ORDERED: POTASSIUM CHL 20MEQ/100ML 100 ML IV ONE (16:00)
--- NOTE | 2025-06-06 16:21 | DVHPNRES ---
Progress Note Date Seen: Jun 06, 2025 Resident Creating Document: PADMINI MAHAN RESIDENT Medical Necessity Reason Pt with a Central, PICC or Fol: No Subjective Review of Systems Patient is a 74-year-old male with past medical history of sleep apnea, hypertension, hyperlipidemia, lung cancer, hyperthyroidism who presented to the ED with chief complaints of abdominal pain as per son patient went to [facility] and after returning had a severe 8/10 stomach ache which was radiating to the back, associated with nausea but did not vomit, patient uses CPAP machine at home, was scheduled for chemotherapy on 06/14. Past surgical history: Right upper lobe lobectomy on April 16 2025, hernia repair Family history: Noncontributory Personal history: Smoked since 40 years, ex alcohol user, denies any drugs 06/04/25: Patient seen in the ICU. Patient is intubated, ventilated with minimal settings. Patient underwent inguinal hernia repair, has a ROBSON drain with serosanguineous fluid. Surgery is following, we will do CPAP trial tomorrow morning. Patient has a right moderate pleural effusion. 06/05/25: patient seen in ICU. Patient was extubated today, on 8 L oxygen. Patient is alert, oriented, following commands, has no new complaints, is not in any acute abdominal pain. surgery following, 06/06/25: patient seen in ICU. Patient was extubated today, on 2 L oxygen. Patient is alert, oriented, following commands, has no new complaints, is not in any acute abdominal pain. Right pleural effusion worsened, IR consulted for thoracocentesis. and consulted PT. surgery following, Objective vital signs Vital Sign Date Time Temp Pulse Resp B/P (MAP) Pulse Ox O2 Delivery O2 Flow Rate FiO2 06/06/25 15:00 99.9 91 24 140/75 (96) 95 211.8 06/06/25 14:00 Nasal Cannula* 2 28 Total Intake and Output 06/05/25 06/05/25 06/06/25 15:00 23:00 07:00 Intake Total 475 ml 270 ml 130 ml Output Total 1845 ml 720 ml Balance 475 ml -1575 ml -590 ml medications Current Medications Medications Dose Ordered Sig/Payton Route Start Time Stop Time Status Last Admin Dose Admin Midazolam HCl 100 ml @ 1 mls/hr Q24H IV 06/03/25 19:00 06/03/25 21:20 2 MLS/HR Propofol 100 ml @ 2.25 mls/hr Q24H IV 06/03/25 20:00 06/04/25 02:32 9 MLS/HR Piperacillin Sod/ Tazobactam Sod 100 ml @ 25 mls/hr Q8HR IV 06/03/25 22:00 06/06/25 14:59 25 MLS/HR Diagnostic Test (Pha) 1 strip Q6HR 06/04/25 00:00 06/06/25 11:34 1 STRIP Dextrose 50 ml UD PRN IV 06/03/25 21:30 Acetaminophen 650 mg Q6HP PRN [place] 06/03/25 21:30 Norepinephrine Bitartrate 250 ml @ 3.75 mls/hr Q24H IV 06/03/25 22:00 06/03/25 22:06 3.75 MLS/HR Pantoprazole Sodium 40 mg DAILY IV 06/04/25 10:00 06/06/25 08:50 40 MG Albuterol 2.5 mg Q6HR NEB 06/04/25 18:00 06/06/25 12:56 2.5 MG Ipratropium [place] 0.5 mg Q6HR NEB 06/04/25 18:00 06/06/25 12:56 0.5 MG Vancomycin HCl 0 ml @ 0 mls/hr PER PHARMACY IV 06/05/25 10:30 Artificial Tears 1 drop Q6HP PRN EACHEYE 06/05/25 16:15 06/05/25 19:00 1 DROP Vancomycin HCl 250 ml @ 250 mls/hr Q12H IV 06/06/25 11:00 06/06/25 11:16 250 MLS/HR Melatonin 10 mg PRN PRN PO 06/06/25 16:00 Examination General: Extubated, opening his eyes and following commands HEENT: Normocephalic, atraumatic, moist mucous membranes Respiratory/pulmonary: Crackles heard on the right side Cardiovascular: Normal heart sounds S1 and S2 with no associated murmurs Abdomen: Abdomen nondistended, grimacing to abdominal palpation, has ROBSON drain in the left inguinal region Extremities: There is no peripheral edema present at the lower extremities. Peripheral Pulses: 3+ Radial (R). 3+ Radial (L). 3+ Dorsalis pedis (R). 3+ Dorsalis pedis(L) Skin: No rashes or pruritus, there is no sacral edema present at this time. Neurological: cough and gag reflex present laboratory and microbiology Laboratory Tests 06/06/25 13:50 06/06/25 03:50 Test 06/06/25 03:50 Range/Units Serum Glucose 107 H 74-106 mg/dL Microbiology Date/Time Source Procedure Growth Status 06/04/25 16:00 Urine - [place] Urine Culture - Preliminary No growth Resulted 06/03/25 22:00 Nose MRSA Screen - Final Complete 06/03/25 19:31 Sputum Gram Stain - Final Resulted 06/03/25 19:31 Sputum Respiratory Culture - Preliminary Resulted 06/03/25 15:47 Blood Blood Culture - Preliminary NO GROWTH AFTER 72 HOURS OF INCUBATION. Resulted Problem List/Assessment/Plan Problem List/Assessment/Plan Neurology Acute metabolic encephalopathy - intubated, sedated Cardiology Septic shock due to Incarcerated left Inguinal Hernia with small bowel Hypertension Hyperlipidemia - IV Zosyn - added vancomycin - Echo ordered, pending - on Levophed Respiratory Right Moderate pleural effusion Acute hypoxic Hypercapnic respiratory failure status post intubation H/O Sleep apnea History of lung cancer - albuterol, ipratropium q.6 - Lasix 20 mg once given - Chest US- showed Moderate Right Pleural effusion - Chest xray daily - extubated 06/05 - on 8 L oxygen GI Septic shock likely due to complicated hernia Incarcerated left Inguinal Hernia with small bowel Status post repair of inguinal hernia - Surgery consulted , following - D/c metronidazole - IV Zosyn Q8 - added vancomycin - IV fluids - NPO Renal/ Electrolytes Lactic Acidosis - Monitor labs Endocrine H/O Hyperthyroidism - Currently Euthyroid - patient taking methimazole as home medication Hematology Mild Normocytic Hypochromic anemia -monitor hemoglobin Lines / Tubes / Devices Airway: Intubated via ETT on 06/04, extubated 06/05 Vascular Access: Central line 06/04 Drips: Versed, fentanyl, Levophed Prophylaxis / Supportive Care DVT Prophylaxis: SCD GI Prophylaxis: Protonix. Goals of care discussed with the patient family for more than 29 minutes: Full code state Critical time spent 83 minutes. Patient care updated to son, addressed all concerns. Critical care time spent with extubation excluding procedures 83 minutes Plan discussed with Dr. De Luna and RN Plan discussed with: Spouse, Other (RN) My Orders My Orders Orders - PADMINI MAHAN Procedure Category Date Status Time Chest Xray 1 View XY 06/06/25 Resulted 04:00 * Radiologist Consult CONS 06/06/25 Transmitted 15:51 Pt Request For Service PT 06/06/25 Logged 15:51 Melatonin (Melatonin) PHA 06/06/25 In Process 16:00 Dietary Evaluation Review Comments: 1. If GI/EN accessible, TF Vital AF @50ml/hr, providing 90g protein 1440kcal 973ml free water, meeting Pt needs @100% protein and 96% energy 2. Reassess when off intubation 3. Advance to CCHO-60 diet if/when pt extubated, and passes PS[employer]IC SOCIAL WORKER evaluation 4. Follow PRN Expected Outcomes/Goals: Inproved nutrition status. recover from sepsis Date of Service: Jun 06, 2025 Billing Provider: STACIA CARRENO MD Common Visit Codes: [id number] CARE 30-74 MIN, [id number] CARE-EACH +30MIN PADMINI MAHAN Jun 06, 2025 16:21 STACIA CARRENO MD Jun 07, 2025 11:08
[2025-06-06] MEDS: POTASSIUM EFFERVESENT TAB 25 MEQ PO ONE (16:22)
[2025-06-06] MEDS ORDERED: ACETAMINOPHEN 325 MG TAB PO PRN (17:00)
[2025-06-06] MEDS: ACETAMINOPHEN 325 MG TAB PO PRN (18:45)
[2025-06-06] MEDS: MELATONIN 5 MG TAB PO PRN (20:14)
[2025-06-07] VITALS (33 sets, daily range): BP systolic 117–157; BP diastolic 66–104; PULSE 61–94; RESP 17–26; TEMP 98.8–100.4; O2SAT 92–100
[2025-06-07 03:44] LABS: Hematocrit 35.9 % (41.0-53.0); Hemoglobin 12.2 g/dL (13.5-17.5); Mean Corpuscular Hemoglobin 31.0 pg (28.0-32.0); Mean Corpuscular Volume 91.2 fL (80.0-100.0); Nucleated Red Blood Cells % 0.0 %
[2025-06-07 04:09] LABS: Alkaline Phosphatase 61 U/L (46-116); Anion Gap 8 (5-15); BUN/Creatinine Ratio 10.5 (10.0-20.0); Bilirubin, Total 0.8 mg/dL (0.2-1.0); Chloride 103 mmol/L (98-107); Sodium 143 mmol/L (136-145)
[2025-06-07 04:22] LABS: Alanine Aminotransferase < 9 U/L (7-40); Albumin 3.1 g/dL (3.2-4.8); Blood Urea Nitrogen 9 mg/dL (9-23); Calcium 8.0 mg/dL (8.7-10.4); Carbon Dioxide 32 mmol/L (20-31); Glucose 111 mg/dL (74-106); Potassium 3.1 mmol/L (3.5-5.1); Total Protein 5.6 g/dL (5.7-8.2)
--- NOTE | 2025-06-07 05:26 | DVH ---
CHEST RADIOGRAPH Indication: pleural effusion Technique: Single frontal view of the chest was obtained COMPARISON: XY CHEST XRAY 1 VIEW on DOS: 06/06/25, XY CHEST XRAY 1 VIEW on DOS: 06/05/25, US CHEST ULTRASOUND on DOS: 06/04/25, XY CHEST PORTABLE on DOS: 06/04/25, XY CHEST XRAY 1 VIEW on DOS: 06/03/25 FINDINGS: Lines and Tubes: Interval removal of all lines and tubes. Lungs: Persistent right hemidiaphragmatic elevation and right pleural effusion. Right basilar pulmonary airspace disease. No pneumothorax. Cardiomediastinal contours: Unremarkable Bones: Unremarkable IMPRESSION: 1. Interval removal of all lines and tubes. 2. Persistent right pleural effusion and right basilar pulmonary airspace disease with persistent hemidiaphragmatic elevation.
[2025-06-07] MEDS: POTASSIUM CHL 20MEQ/100ML 100 ML IV SCH (06:10)
--- NOTE | 2025-06-07 08:36 | DVHPN2 ---
Subjective Date Seen: Jun 07, 2025 Post op day Post op day: 2 Patient reports: No new complaints Nursing reports: No new complaints General: Normal HNT: Normal Cardiovascular: Normal Respiratory: Normal Gastrointestinal: Normal Genitourinary: Normal Musculoskeletal: Normal Neurological: Normal Objective Vitals Vital Sign Date Time Temp Pulse Resp B/P (MAP) Pulse Ox O2 Delivery O2 Flow Rate FiO2 06/07/25 07:00 99.3 81 26 151/83 (105) 96 210.7 06/07/25 06:00 Nasal Cannula* 2 28 Total Intake and Output 06/06/25 06/06/25 06/07/25 15:00 23:00 07:00 Intake Total 450 ml 520 ml 530 ml Output Total 2885 ml 975 ml Balance 450 ml -2365 ml -445 ml Medications Current Medications Medications Dose Ordered Sig/Payton Route Start Time Stop Time Status Last Admin Dose Admin Midazolam HCl 100 ml @ 1 mls/hr Q24H IV 06/03/25 19:00 06/03/25 21:20 2 MLS/HR Propofol 100 ml @ 2.25 mls/hr Q24H IV 06/03/25 20:00 06/04/25 02:32 9 MLS/HR Piperacillin Sod/ Tazobactam Sod 100 ml @ 25 mls/hr Q8HR IV 06/03/25 22:00 06/07/25 06:09 25 MLS/HR Diagnostic Test (Pha) 1 strip Q6HR 06/04/25 00:00 06/07/25 06:10 1 STRIP Dextrose 50 ml UD PRN IV 06/03/25 21:30 Norepinephrine Bitartrate 250 ml @ 3.75 mls/hr Q24H IV 06/03/25 22:00 06/03/25 22:06 3.75 MLS/HR Pantoprazole Sodium 40 mg DAILY IV 06/04/25 10:00 06/06/25 08:50 40 MG Albuterol 2.5 mg Q6HR NEB 06/04/25 18:00 06/07/25 07:00 2.5 MG Ipratropium [place] 0.5 mg Q6HR NEB 06/04/25 18:00 06/07/25 07:00 0.5 MG Vancomycin HCl 0 ml @ 0 mls/hr PER PHARMACY IV 06/05/25 10:30 Artificial Tears 1 drop Q6HP PRN EACHEYE 06/05/25 16:15 06/05/25 19:00 1 DROP Vancomycin HCl 250 ml @ 250 mls/hr Q12H IV 06/06/25 11:00 06/06/25 22:41 250 MLS/HR Melatonin 10 mg PRN PRN PO 06/06/25 16:00 06/06/25 20:14 10 MG Amlodipine Besylate 5 mg DAILY PO 06/07/25 10:00 Hydrochlorothiazide 25 mg DAILY PO 06/07/25 10:00 Acetaminophen 650 mg Q6HPRN PRN PO 06/06/25 18:15 06/06/25 18:45 650 MG Potassium Chloride 100 ml @ 50 mls/hr Q2H IV 06/07/25 05:00 06/07/25 08:59 06/07/25 06:10 50 MLS/HR General: Normal Head/Eyes: Normal ENT: Normal Neck: Normal, Supple Lungs: Normal, Normal inspection Cardiovascular: Normal, Regular rate and rhythm Extremities: Normal, No clubbing Neurological: Normal Labs and Microbiology Laboratory Tests 06/07/25 03:10 Test 06/07/25 03:10 Range/Units Serum Glucose 111 H 74-106 mg/dL Ass/Plan Problem List Neurology Acute metabolic encephalopathy - intubated, sedated Cardiology Septic shock due to Incarcerated left Inguinal Hernia with small bowel Hypertension Hyperlipidemia - IV Zosyn - added vancomycin - Echo ordered, pending - on Levophed Respiratory Right Moderate pleural effusion Acute hypoxic Hypercapnic respiratory failure status post intubation H/O Sleep apnea History of lung cancer - albuterol, ipratropium q.6 - Lasix 20 mg once given - Chest US- showed Moderate Right Pleural effusion - Chest xray daily - extubated 06/05 - on 8 L oxygen GI Septic shock likely due to complicated hernia Incarcerated left Inguinal Hernia with small bowel Status post repair of inguinal hernia - Surgery consulted , following - D/c metronidazole - IV Zosyn Q8 - added vancomycin - IV fluids - NPO Renal/ Electrolytes Lactic Acidosis - Monitor labs Endocrine H/O Hyperthyroidism - Currently Euthyroid - patient taking methimazole as home medication Hematology Mild Normocytic Hypochromic anemia -monitor hemoglobin Lines / Tubes / Devices Airway: Intubated via ETT on 06/04, extubated 06/05 Vascular Access: Central line 06/04 Drips: Versed, fentanyl, Levophed Prophylaxis / Supportive Care DVT Prophylaxis: SCD GI Prophylaxis: Protonix. Goals of care discussed with the patient family for more than 29 minutes: Full code state Critical time spent 83 minutes. Patient care updated to son, addressed all concerns. Critical care time spent including extubation excluding procedures 87 minutes Plan discussed with Dr. De Luna and media producer/Plan s/p left inguinal hernia repair no new complaints no scrotal swelling wound clean dry and intact Plan: full liquid diet DC NGT 06/07/25 s/p left inguinal hernia repair no new complaints no scrotal swelling wound clean dry and intact passing gas, NO bm Plan: advance diet as tolerated Prognosis: Good Plan discussed with patient, Dr. Ramirez Visit Coding Surgery Date of Service if different f: Jun 07, 2025 Billing Provider: PAIGE RAMIREZ MD Surgery Visit Codes: [id number] INP/OBS CARE(HIGH) SHEA MCCABE RN BUILDING Jun 07, 2025 08:36
[2025-06-07] MEDS: hydroCHLOROthiazide 25 MG TAB PO SCH (08:58)
[2025-06-07] MEDS: POTASSIUM EFFERVESENT TAB 25 MEQ PO ONE (08:59)
--- NOTE | 2025-06-07 09:35 | DVH ---
US CHEST ULTRASOUND HISTORY: Fluid check for Thoracentesis COMPARISON(S): XY CHEST XRAY 1 VIEW on DOS: 06/07/25, XY CHEST XRAY 1 VIEW on DOS: 06/06/25, US ECHO 2D MODE CARDIAC DOP on DOS: 06/05/25 TECHNICAL DATA: Transverse and longitudinal images are obtained of the chest. FINDING: IMPRESSION(S): There is moderate right pleural effusion.
[2025-06-07 10:20] LABS: Magnesium 2.1 mg/dL (1.6-2.6)
[2025-06-07] MEDS: FUROSEMIDE 20 MG/2 ML VIAL IV ONE (11:53)
--- NOTE | 2025-06-07 17:42 | DVHPNRES ---
Progress Note Date Seen: Jun 07, 2025 Resident Creating Document: PADMINI MAHAN RESIDENT Medical Necessity Reason Pt with a Central, PICC or Fol: No Subjective Review of Systems Patient is a 74-year-old male with past medical history of sleep apnea, hypertension, hyperlipidemia, lung cancer, hyperthyroidism who presented to the ED with chief complaints of abdominal pain as per son patient [facility] and after returning had a severe 8/10 stomach ache which was radiating to the back, associated with nausea but did not vomit, patient uses CPAP machine at home, was scheduled for chemotherapy on 06/14. Past surgical history: Right upper lobe lobectomy on April 16 2025, hernia repair Family history: Noncontributory Personal history: Smoked since 40 years, ex alcohol user, denies any drugs 06/04/25: Patient seen in the ICU. Patient is intubated, ventilated with minimal settings. Patient underwent inguinal hernia repair, has a ROBSON drain with serosanguineous fluid. Surgery is following, we will do CPAP trial tomorrow morning. Patient has a right moderate pleural effusion. 06/05/25: patient seen in ICU. Patient was extubated today, on 8 L oxygen. Patient is alert, oriented, following commands, has no new complaints, is not in any acute abdominal pain. surgery following, 06/06/25: patient seen in ICU. Patient was extubated today, on 2 L oxygen. Patient is alert, oriented, following commands, has no new complaints, is not in any acute abdominal pain. Right pleural effusion worsened, IR consulted for thoracocentesis. and consulted PT. surgery following, 06/07/2025: patient seen in ICU. Patient was on 2 L oxygen, patient is alert oriented and following commands, has no new complaints and has no abdominal pain. IR consulted for thoracentesis, pending. ROBSON drain showed serosanguineous fluid. Surgery following. Switched his diet to soft mechanical diet. PT eval to be done. Objective vital signs Vital Sign Date Time Temp Pulse Resp B/P (MAP) Pulse Ox O2 Delivery O2 Flow Rate FiO2 06/07/25 17:37 100.4 06/07/25 17:30 83 25 97 06/07/25 16:00 Nasal Cannula* 2 28 Total Intake and Output 06/06/25 06/06/25 06/07/25 15:00 23:00 07:00 Intake Total 450 ml 520 ml 530 ml Output Total 2885 ml 975 ml Balance 450 ml -2365 ml -445 ml medications Current Medications Medications Dose Ordered Sig/Payton Route Start Time Stop Time Status Last Admin Dose Admin Piperacillin Sod/ Tazobactam Sod 100 ml @ 25 mls/hr Q8HR IV 06/03/25 22:00 06/07/25 14:38 25 MLS/HR Diagnostic Test (Pha) 1 strip Q6HR 06/04/25 00:00 06/07/25 17:37 1 STRIP Dextrose 50 ml UD PRN IV 06/03/25 21:30 Pantoprazole Sodium 40 mg DAILY IV 06/04/25 10:00 06/07/25 08:56 40 MG Albuterol 2.5 mg Q6HR NEB 06/04/25 18:00 06/07/25 12:16 2.5 MG Ipratropium [place] 0.5 mg Q6HR NEB 06/04/25 18:00 06/07/25 12:16 0.5 MG Vancomycin HCl 0 ml @ 0 mls/hr PER PHARMACY IV 06/05/25 10:30 Artificial Tears 1 drop Q6HP PRN EACHEYE 06/05/25 16:15 06/05/25 19:00 1 DROP Vancomycin HCl 250 ml @ 250 mls/hr Q12H IV 06/06/25 11:00 06/07/25 11:07 250 MLS/HR Melatonin 10 mg PRN PRN PO 06/06/25 16:00 06/06/25 20:14 10 MG Amlodipine Besylate 5 mg DAILY PO 06/07/25 10:00 06/07/25 08:59 5 MG Hydrochlorothiazide 25 mg DAILY PO 06/07/25 10:00 06/07/25 08:58 25 MG Acetaminophen 650 mg Q6HPRN PRN PO 06/06/25 18:15 06/07/25 17:37 650 MG Examination General: Extubated, opening his eyes and following commands HEENT: Normocephalic, atraumatic, moist mucous membranes Respiratory/pulmonary: Crackles heard on the right side Cardiovascular: Normal heart sounds S1 and S2 with no associated murmurs Abdomen: Abdomen nondistended, grimacing to abdominal palpation, has ROBSON drain in the left inguinal region Extremities: There is no peripheral edema present at the lower extremities. Peripheral Pulses: 3+ Radial (R). 3+ Radial (L). 3+ Dorsalis pedis (R). 3+ Dorsalis pedis(L) Skin: No rashes or pruritus, there is no sacral edema present at this time. Neurological: cough and gag reflex present laboratory and microbiology Laboratory Tests 06/07/25 16:25 06/07/25 03:10 Test 06/07/25 03:10 Range/Units Serum Glucose 111 H 74-106 mg/dL Microbiology Date/Time Source Procedure Growth Status 06/04/25 16:00 Urine - [place] Urine Culture - Final Complete 06/03/25 22:00 Nose MRSA Screen - Final Complete 06/03/25 19:31 Sputum Gram Stain - Final Complete 06/03/25 19:31 Sputum Respiratory Culture - Final Complete 06/03/25 15:47 Blood Blood Culture - Preliminary NO GROWTH AFTER 72 HOURS OF INCUBATION. Resulted Problem List/Assessment/Plan Problem List/Assessment/Plan Neurology Acute metabolic encephalopathy - intubated, sedated Cardiology Septic shock due to Incarcerated left Inguinal Hernia with small bowel Hypertension Hyperlipidemia - IV Zosyn - added vancomycin - Echo ordered, pending - on Levophed Respiratory Right Moderate pleural effusion Acute hypoxic Hypercapnic respiratory failure status post intubation H/O Sleep apnea History of lung cancer - albuterol, ipratropium q.6 - Lasix 20 mg once given - Chest US- showed Moderate Right Pleural effusion - Chest xray daily - extubated 06/05 - on 8 L oxygen GI Septic shock likely due to complicated hernia Incarcerated left Inguinal Hernia with small bowel Status post repair of inguinal hernia - Surgery consulted , following - D/c metronidazole - IV Zosyn Q8 - added vancomycin - IV fluids - NPO Renal/ Electrolytes Lactic Acidosis - Monitor labs Endocrine H/O Hyperthyroidism - Currently Euthyroid - patient taking methimazole as home medication Hematology Mild Normocytic Hypochromic anemia -monitor hemoglobin Lines / Tubes / Devices Airway: Intubated via ETT on 06/04, extubated 06/05 Vascular Access: Central line 06/04 Drips: Versed, fentanyl, Levophed Prophylaxis / Supportive Care DVT Prophylaxis: SCD GI Prophylaxis: Protonix. Goals of care discussed with the patient family for more than 29 minutes: Full code state Critical time spent 83 minutes. Patient care updated to son, addressed all concerns. Critical care time spent with extubation excluding procedures 62 minutes Plan discussed with Dr. De Luna and RN Plan discussed with: Spouse My Orders My Orders Orders - PADMINI MAHAN RESIDENT Procedure Category Date Status Time Acetaminophen Tablet PHA 06/06/25 In Process (Tylenol Tablet) 18:15 Pt Request For Service PT 06/07/25 Logged 11:17 Dietary Evaluation Review Comments: 1. If GI/EN accessible, TF Vital AF @50ml/hr, providing 90g protein 1440kcal 973ml free water, meeting Pt needs @100% protein and 96% energy 2. Reassess when off intubation 3. [facility] if/when pt extubated, and passes [employer] MAT[employer] CUTTER evaluation 4. Follow PRN Expected Outcomes/Goals: Inproved nutrition status. recover from sepsis Date of Service: Jun 07, 2025 Billing Provider: STACIA CARRENO MD Common Visit Codes: [id number] CARE 30-74 MIN PADMINI MAHAN Jun 07, 2025 17:42 STACIA CARRENO MD Jun 10, 2025 16:37
[2025-06-08] VITALS (31 sets, daily range): BP systolic 116–166; BP diastolic 78–108; PULSE 69–110; RESP 16–30; TEMP 98.5–99.5; O2SAT 94–100
[2025-06-08 03:38] LABS: Hematocrit 39.8 % (41.0-53.0); Hemoglobin 13.5 g/dL (13.5-17.5); Mean Corpuscular Hemoglobin 31.0 pg (28.0-32.0); Mean Corpuscular Volume 91.2 fL (80.0-100.0); Nucleated Red Blood Cells % 0.0 %
[2025-06-08 03:45] LABS: Alanine Aminotransferase 10 U/L (7-40); Albumin 3.5 g/dL (3.2-4.8); Alkaline Phosphatase 62 U/L (46-116); Anion Gap 10 (5-15); BUN/Creatinine Ratio 9.3 (10.0-20.0); Calcium 8.8 mg/dL (8.7-10.4); Chloride 101 mmol/L (98-107); Magnesium 2.0 mg/dL (1.6-2.6); Potassium 3.7 mmol/L (3.5-5.1); Sodium 143 mmol/L (136-145); Total Protein 6.2 g/dL (5.7-8.2)
[2025-06-08 03:46] LABS: Bilirubin, Total 0.6 mg/dL (0.2-1.0)
[2025-06-08 03:56] LABS: Blood Urea Nitrogen 9 mg/dL (9-23); Carbon Dioxide 32 mmol/L (20-31); Glucose 120 mg/dL (74-106)
--- NOTE | 2025-06-08 05:48 | DVH ---
CHEST RADIOGRAPH Indication: plural effusion Technique: Single frontal view of the chest was obtained COMPARISON: US CHEST ULTRASOUND on DOS: 06/07/25, XY CHEST XRAY 1 VIEW on DOS: 06/07/25, XY CHEST XRAY 1 VIEW on DOS: 06/06/25, XY CHEST XRAY 1 VIEW on DOS: 06/05/25, US CHEST ULTRASOUND on DOS: 06/04/25 FINDINGS: Lines and Tubes: None Lungs: Stable appearing right pleural effusion and multifocal right pulmonary airspace disease. No pneumothorax. Cardiomediastinal contours: Unremarkable Bones: Unremarkable IMPRESSION: 1. Stable appearing right pleural effusion and multifocal right pulmonary airspace disease.
[2025-06-08] MEDS: FUROSEMIDE 20 MG/2 ML VIAL IV ONE (08:30)
--- NOTE | 2025-06-08 11:13 | DVHPNRES ---
Progress Note Date Seen: Jun 08, 2025 Resident Creating Document: PADMINI MAHAN RESIDENT Medical Necessity Reason Pt with a Central, PICC or Fol: No Subjective Review of Systems Patient is a 74-year-old male with past medical history of sleep apnea, hypertension, hyperlipidemia, lung cancer, hyperthyroidism who presented to the ED with chief complaints of abdominal pain as per son patient went to [facility] and after returning had a severe 8/10 stomach ache which was radiating to the back, associated with nausea but did not vomit, patient uses CPAP machine at home, was scheduled for chemotherapy on 06/14. Past surgical history: Right upper lobe lobectomy on April 16 2025, hernia repair Family history: Noncontributory Personal history: Smoked since 40 years, ex alcohol user, denies any drugs 06/04/25: Patient seen in the ICU. Patient is intubated, ventilated with minimal settings. Patient underwent inguinal hernia repair, has a ROBSON drain with serosanguineous fluid. Surgery is following, we will do CPAP trial tomorrow morning. Patient has a right moderate pleural effusion. 06/05/25: patient seen in ICU. Patient was extubated today, on 8 L oxygen. Patient is alert, oriented, following commands, has no new complaints, is not in any acute abdominal pain. surgery following, 06/06/25: patient seen in ICU. Patient was extubated today, on 2 L oxygen. Patient is alert, oriented, following commands, has no new complaints, is not in any acute abdominal pain. Right pleural effusion worsened, IR consulted for thoracocentesis. and consulted PT. surgery following, 06/07/2025: patient seen in ICU. Patient was on 2 L oxygen, patient is alert oriented and following commands, has no new complaints and has no abdominal pain. IR consulted for thoracentesis, pending. ROBSON drain showed serosanguineous fluid. Surgery following. Switched his diet to soft mechanical diet. PT eval to be done. 06/08/25: patient seen in the ICU. Patient on 1 L oxygen. thoracentesis was done today. Draining serosanguineous fluid. Patient is eating, ambulating with PT. Objective vital signs Vital Sign Date Time Temp Pulse Resp B/P (MAP) Pulse Ox O2 Delivery O2 Flow Rate FiO2 06/08/25 10:17 142/98 06/08/25 10:00 80 06/08/25 10:00 18 98 Nasal Cannula* 2 28 06/08/25 07:00 99.3 210.7 Total Intake and Output 06/07/25 06/07/25 06/08/25 15:00 23:00 07:00 Intake Total 375 ml 580 ml 475 ml Output Total 2910 ml 460 ml Balance 375 ml -2330 ml 15 ml medications Current Medications Medications Dose Ordered Sig/Payton Route Start Time Stop Time Status Last Admin Dose Admin Piperacillin Sod/ Tazobactam Sod 100 ml @ 25 mls/hr Q8HR IV 06/03/25 22:00 06/08/25 06:21 25 MLS/HR Pantoprazole Sodium 40 mg DAILY IV 06/04/25 10:00 06/08/25 10:17 40 MG Albuterol 2.5 mg Q6HR NEB 06/04/25 18:00 06/08/25 07:14 2.5 MG Ipratropium [place] 0.5 mg Q6HR NEB 06/04/25 18:00 06/08/25 07:14 0.5 MG Vancomycin HCl 0 ml @ 0 mls/hr PER PHARMACY IV 06/05/25 10:30 Artificial Tears 1 drop Q6HP PRN EACHEYE 06/05/25 16:15 06/05/25 19:00 1 DROP Vancomycin HCl 250 ml @ 250 mls/hr Q12H IV 06/06/25 11:00 06/08/25 10:17 250 MLS/HR Melatonin 10 mg PRN PRN PO 06/06/25 16:00 06/07/25 21:27 10 MG Amlodipine Besylate 5 mg DAILY PO 06/07/25 10:00 06/08/25 10:17 5 MG Hydrochlorothiazide 25 mg DAILY PO 06/07/25 10:00 06/08/25 10:17 25 MG Acetaminophen 650 mg Q6HPRN PRN PO 06/06/25 18:15 06/07/25 17:37 650 MG Examination General: Extubated, opening his eyes and following commands HEENT: Normocephalic, atraumatic, moist mucous membranes Respiratory/pulmonary: Crackles heard on the right side Cardiovascular: Normal heart sounds S1 and S2 with no associated murmurs Abdomen: Abdomen nondistended, grimacing to abdominal palpation, has ROBSON drain in the left inguinal region Extremities: There is no peripheral edema present at the lower extremities. Peripheral Pulses: 3+ Radial (R). 3+ Radial (L). 3+ Dorsalis pedis (R). 3+ Dorsalis pedis(L) Skin: No rashes or pruritus, there is no sacral edema present at this time. Neurological: normal neurological exam laboratory and microbiology Laboratory Tests 06/08/25 02:52 Test 06/08/25 02:52 Range/Units Serum Glucose 120 H 74-106 mg/dL Microbiology Date/Time Source Procedure Growth Status 06/04/25 16:00 Urine - [place] Urine Culture - Final Complete 06/03/25 22:00 Nose MRSA Screen - Final Complete 06/03/25 19:31 Sputum Gram Stain - Final Complete 06/03/25 19:31 Sputum Respiratory Culture - Final Complete 06/03/25 15:47 Blood Blood Culture - Preliminary NO GROWTH AFTER 72 HOURS OF INCUBATION. Resulted Problem List/Assessment/Plan Problem List/Assessment/Plan Neurology Acute metabolic encephalopathy - intubated, sedated Cardiology Septic shock due to Incarcerated left Inguinal Hernia with small bowel Hypertension Hyperlipidemia - IV Zosyn - added vancomycin - Echo ordered, pending - on Levophed Respiratory Right Moderate pleural effusion Acute hypoxic Hypercapnic respiratory failure status post intubation H/O Sleep apnea History of lung cancer - albuterol, ipratropium q.6 - Lasix 20 mg once given - Chest US- showed Moderate Right Pleural effusion - Chest xray daily - extubated 06/05 - on 8 L oxygen GI Septic shock likely due to complicated hernia Incarcerated left Inguinal Hernia with small bowel Status post repair of inguinal hernia - Surgery consulted , following - D/c metronidazole - IV Zosyn Q8 - added vancomycin - IV fluids - NPO Renal/ Electrolytes Lactic Acidosis - Monitor labs Endocrine H/O Hyperthyroidism - Currently Euthyroid - patient taking methimazole as home medication Hematology Mild Normocytic Hypochromic anemia -monitor hemoglobin Lines / Tubes / Devices Airway: Intubated via ETT on 06/04, extubated 06/05 Vascular Access: Central line 06/04 Drips: Versed, fentanyl, Levophed Prophylaxis / Supportive Care DVT Prophylaxis: SCD GI Prophylaxis: Protonix. Goals of care discussed with the patient family for more than 29 minutes: Full code state Critical time spent 83 minutes. Patient care updated to son, addressed all concerns. Critical care time spent with extubation excluding procedures 85 minutes Plan discussed with Dr. Ellsworth and RN Plan discussed with: Patient, Spouse My Orders My Orders Orders - PADMINI MAHAN Procedure Category Date Status Time Pt Request For Service PT 06/07/25 Logged 11:17 Chest Xray 1 View XY 06/08/25 Resulted 04:00 Dietary Evaluation Review Comments: 1. If GI/EN accessible, TF Vital AF @50ml/hr, providing 90g protein 1440kcal 973ml free water, meeting Pt needs @100% protein and 96% energy 2. Reassess when off intubation 3. Advance to CCHO-60 diet if/when pt extubated, and passes RURAL MAIL CONTRACTOR evaluation 4. Follow PRN Expected Outcomes/Goals: Inproved nutrition status. recover from sepsis PADMINI MAHAN RESIDENT Jun 08, 2025 11:13
--- NOTE | 2025-06-08 21:11 | DVHNC2 ---
Procedure - Right Thoracentesis Procedure Note under ultrasound guidance INDICATION: Right sided pleural effusion PHYSICIAN: Lupe Ellsworth MD CONSENT: Consent was obtained from patient/patient's HCP prior to the procedure. Indications, risks, and benefits were explained at length. Time out time: Risks and benefits of the procedure and sedation options and risks were discussed with the patient/patient's HCP. All questions were answered and informed consent was obtained. Patient identification and proposed procedure were verified prior to the procedure by the physician, and the nurse in the patient's room. PROCEDURE SUMMARY: A time out was performed and the chest x-ray was reviewed, the appropriate side was confirmed and marked. My hands were washed immediately prior to the procedure. I wore a surgical cap, mask with protective eyewear, sterile gown and sterile gloves throughout the procedure. The patient was prepped and draped in a sterile manner using chlorhexidine scrub after the appropriate level was percussed and confirmed by ultrasound. 1% lidocaine was used to anesthesize the skin, subcutaneous tissue, superior aspect of the rib periosteum and parietal pleura. A finder needle was then introduced over the superior aspect of the rib to locate the pleural fluid; yellow-straw colored fluid was aspirated at a depth of approximately 2 cm. A 10-blade scalpel was used to maria isabel the skin at the insertion site. Under real-time ultrasound guidance, the 5 Pashto Yueh Thora-Centesis needle was then introduced through the skin incision into the pleural space using negative aspiration pressure. The thoracentesis catheter was then threaded without difficulty. 1450 mL of alban colored fluid was removed without difficulty. The catheter was then removed. No immediate complications were noted during the procedure. Using the linear probe, lung sliding was noted anteriorly and posteriorly and are an indication of no pneumothorax. CXR reviewed at bedside.No pneumothorax. Interval reduction in right pleural effusion. The fluid will be sent for studies cell count and differential, fluid LDH, glucose, albumin and total protein, gram stain and culture, and cytology. Estimated blood loss is less than 5 mL. CPT: 70121 Visit Coding Pulmonary Billing Provider: NICK ELLSWORTH MD Date of Service if different f: Jun 08, 2025 Common Visit Codes: PROCEDURE ONLY Procedure Codes: [id number] W/PUNCT (66894 Right thoracentesis) NICK ELLSWORTH MD Jun 08, 2025 21:11
--- NOTE | 2025-06-08 21:33 | DVH ---
EXAM: XY CHEST PORTABLE HISTORY: S/P RIGHT THORACENTESIS TECHNIQUE: 1 view of the chest COMPARISON: XY CHEST XRAY 1 VIEW on DOS: 06/08/25 FINDINGS/IMPRESSION: LUNGS: Interval improvement however with persistent possible loculated effusion of the right upper pleural space versus collapse of the right upper lobe. Trace radiolucency in the right subpulmonic space which may be artifactual however trace pneumothorax not excluded. MEDIASTINUM: Unremarkable. BONES: No acute osseous abnormality. OTHER: None.
--- NOTE | 2025-06-08 23:56 | DVHINCON2 ---
Date of service: Jun 08, [address] Trotter Reason for Consultation Acute hypoxic respiratory failure and pleural effusion History of Present Illness A 74-year-old man with past medical history of lung cancer (scheduled chemo on 06/14/25), diabetes mellitus, sleep apnea, hypertension, hyperlipidemia, and thyroid disease who presented to ED on 06/03/25 with complaint of abdominal pain. Patient reported diffuse abdominal pain of sudden onset, 8/10 on pain scale, associated with nausea. Patient was seen and evaluated in the ED. Laboratory data showed WBC 18.9, platelets 329, sodium 141, potassium 3.6, BUN 11, creatinine 1.04, GFR 76, gl ucose 194, hemoglobin A1c 5.7, lactic 3.0, TSH 0.34, troponin 17. Vitals were BP of 115/78, heart rate 78, temperature 97.4 F, O2 saturation 98% on oxygen. Abdomen/pelvis CT revealing left inguinal hernia containing small bowel loops and sigmoid colon; dilatation of small bowel loops within the hernia with mesenteric edema and mild mucosal thickening, findings highly suspicious for incarcerated bowel. Chest x-ray revealing trace right-sided pleural effusion with right upper to mid lung zone and right bibasilar atelectasis, enteric tube is in satisfactory position. Patient underwent repair of incarcerated left inguinal scrotal hernia and was admitted to ICU for further evaluation and medical management. Pulmonary consultation is requested for evaluation and management of acute hypoxic respiratory failure and pleural effusion in patient with lung cancer. Review of Systems: 14-point review of systems negative unless otherwise noted above. Past Medical History HLD, DM, HTN, Sleep apnea, Thyroid disease, Lung cancer. Past Surgical History Lung surgery, Hernia repair Medications: Reviewed. Allergies: No known drug allergies. Family History: No family history of premature CAD. No family history of lung disorders. Social History: Nonsmoker. No alcohol or illicit drug use. Allergies: Coded Allergies: NO KNOWN ALLERGIES (Unverified , 06/03/25) Home Meds Active Scripts Cephalexin Monohydrate (Cephalexin) 500 Mg Cap, 1 CAP PO TID, #21 CAP Prov:MARRY VOGEL RESIDENT 06/13/25 Reported Medications Methimazole (Methimazole) 5 Mg Tab, 5 MG PO 2XW, TAB 06/05/25 Tamsulosin Hcl (Tamsulosin Hcl) 0.4 Mg Cap, 0.4 MG PO QPM for 30 Days, MG 06/05/25 Finasteride (Finasteride) 5 Mg Tab, 1 TAB PO DAILY, #90 TAB 1 Refill 06/05/25 Atorvastatin Calcium (ATORVASTATIN CALCIUM) 20 Mg Tab, 20 MG PO DAILY, TAB 06/05/25 Hydrochlorothiazide (Hydrochlorothiazide) 25 Mg Tab, 25 MG PO DAILY for 30 Days, MG 06/05/25 Losartan Potassium (Losartan Potassium) 25 Mg Tab, 25 MG PO DAILY for 30 Days, MG 06/05/25 Amlodipine Besylate (Amlodipine Besylate) 5 Mg Tab, 5 MG PO DAILY for 30 Days, MG 06/05/25 Vital Signs Vital Signs Date Time Temp Pulse Resp B/P (MAP) Pulse Ox O2 Delivery O2 Flow Rate FiO2 06/08/25 19:00 95 26 145/88 (107) 99 06/08/25 18:26 Nasal Cannula 5.0 06/08/25 18:26 40 06/08/25 17:00 98.5 98.5 Physical Exam Gen.: Patient lying in bed in no apparent distress. On supplemental oxygen. Head: Normocephalic, atraumatic. Eyes: EOMI/PERRLA. Ears: Normal hearing. Normal anatomy. Neck/trachea: Trachea midline, supple. Nose: Normal external anatomy. Mouth: Moist mucous membranes. Chest: Decreased air entry bilaterally. No wheezing or rhonchi. Cardiovascular: Positive S1, positive S2. Regular rate and rhythm. Abdomen: Positive bowel sounds in all 4 quadrants. Soft, non-tender, non- distended. : Deferred. Rectal: Deferred. Skin: Warm, dry. Intact. Extremities: 2+ radial pulses bilaterally. No lower extremity edema. Neuro: Awake, alert, oriented x3. No gross motor or sensory deficits. Cranial nerves II through XII intact. Gait not assessed. Labs/Diagnostic Data Labs Test 06/08/25 21:10 06/08/25 06:23 06/08/25 02:52 06/07/25 22:08 Range/Units Body Fluid Source Pleural fluid Body Fluid pH 7.0 Body Fluid WBC (Manual) 3229 H 0-200 CUMM Body Fluid RBC (Manual) 0 0-2000 CUMM Body Fluid Mononuclear Cells 94 % Body Fluid Polymorphonuclear Cells 6 0-25 % POC Glucose 163 H 70-106 mg/dl White Blood Count 9.0 4.4-10.8 10^3/uL Red Blood Count 4.36 L 4.5-5.90 10^6/uL Hemoglobin 13.5 13.5-17.5 g/dL Hematocrit 39.8 #L 41.0-53.0 % Mean Corpuscular Volume 91.2 80.0-100.0 fL Mean Corpuscular Hemoglobin 31.0 28.0-32.0 pg Mean Corpuscular Hemoglobin Concent 34.0 32.0-36.0 g/dL Red Cell Distribution Width 12.6 11.8-14.3 % Platelet Count 269 140-450 10^3/uL Mean Platelet Volume 8.3 6.9-10.8 fL Neutrophils (%) (Auto) 72.5 37.0-80.0 % Lymphocytes (%) (Auto) 13.3 10.0-50.0 % Monocytes (%) (Auto) 8.1 0.0-12.0 % Eosinophils (%) (Auto) 5.3 0.0-7.0 % Basophils (%) (Auto) 0.8 0.0-2.0 % Neutrophils # (Auto) 6.5 1.6-8.6 10 ^3/uL Lymphocytes # (Auto) 1.2 0.4-5.4 10 ^3/uL Monocytes # (Auto) 0.7 0-1.3 10 ^3/uL Eosinophils # (Auto) 0.5 0-0.8 10 ^3/uL Basophils # (Auto) 0.1 0-0.2 10 ^3/uL Nucleated Red Blood Cells 0.0 % Sodium Level 143 136-145 mmol/L Potassium Level 3.7 3.5-5.1 mmol/L Chloride Level 101 98-107 mmol/L Carbon Dioxide Level 32 H 20-31 mmol/L Anion Gap 10 5-15 Blood Urea Nitrogen 9 9-23 mg/dL Creatinine 0.97 0.700-1.30 mg/dL Glomerular Filtration Rate Calc 82 >90 mL/min BUN/Creatinine Ratio 9.3 L 10.0-20.0 Serum Glucose 120 H 74-106 mg/dL Calcium Level 8.8 8.7-10.4 mg/dL Phosphorus Level 3.4 2.4-5.1 mg/dL Magnesium Level 2.0 1.6-2.6 mg/dL Total Bilirubin 0.6 0.2-1.0 mg/dL Aspartate Amino Transferase (AST) 14 13-40 U/L Alanine Aminotransferase (ALT) 10 7-40 U/L Alkaline Phosphatase 62 46-116 U/L Total Protein 6.2 5.7-8.2 g/dL Albumin 3.5 3.2-4.8 g/dL Vancomycin Level Trough 16.4 H 5-10 ug/mL Test 06/06/25 03:50 06/05/25 13:30 06/05/25 07:33 06/04/25 19:59 Range/Units Random Vancomycin Level 7.0 5-10 ug/mL Blood Gas Specimen Type Arterial Blood Gas Sample Site Left radial Blood Gas Patient Temperature 37.0 Arterial Blood Date Drawn [id number] Arterial Blood pH 7.441 7.350-7.450 Arterial Blood Partial Pressure CO2 33.1 L 35.0-48.0 mmHg Arterial Blood Partial Pressure O2 69.4 L 83.0-108.0 mmHg Arterial Blood HCO3 22.0 21.0-28.0 mmol/L Arterial Blood Oxygen Saturation 93.9 L 94.0-98.0 % Arterial Blood Base Excess -1.3 -2.0-3.0 mmol/L Arterial Blood Oxyhemoglobin 93.3 L 94.0-98.0 % Arterial Blood Carboxyhemoglobin 0.2 L 0.5-1.5 % Arterial Blood Methemoglobin 0.4 0.0-1.5 % Tong Test Modified Blood Gas Total Hemoglobin 14.40 13.5-17.5 g/dL Blood Gas Modality Vent - cpap FiO2 % 30.0 Blood Gas Pressure Support 8 Blood Gas PEEP or CPAP 5.0 Blood Gas Set Respiration Rate 20.0 Blood Gas Tidal Volume 450.0 Free Thyroxine (T4) Calculated 1.16 0.89-1.76 ng/dL Free Triiodothyronine (T3) pg/mL 2.54 2.3-4.2 pg/mL Test 06/04/25 02:30 06/03/25 17:15 06/03/25 15:11 Range/Units Lactic Acid Level 0.7 0.4-2.0 mmol/L Urine Color Light-yellow Yellow Urine Clarity Turbid H Clear Urine pH 7.5 5.0-9.0 Urine Specific [place] 1.010 1.001-1.035 Urine Protein Negative Negative Urine Ketones Negative Negative Urine Blood Negative Negative /uL Urine Nitrite Negative Negative Urine Bilirubin Negative Negative Urine Urobilinogen Normal Negative mg/dL Urine Leukocyte Esterase Negative Negative /uL Urine RBC 1 0 - 3 /hpf Urine Microscopic WBC 6 H 0-3 /HPF Urine Squamous Epithelial Cells Few <5 /hpf Urine Bacteria None seen None Seen /hpf Urine Glucose Normal Normal mg/dL Prothrombin Time 10.8 9.3-11.8 sec Prothrombin Time INR 1.02 0.9-1.15 Activated Partial Thromboplast Time 26.9 24.5-34.5 SEC Hemoglobin A1c 5.7 <5.7 % A1C Troponin I High Sensitivity 17 </=54 ng/L Thyroid Stimulating Hormone (TSH) 0.34 L 0.55-4.78 uIU/mL Microbiology Date/Time Source Procedure Growth Status 06/04/25 16:00 Urine - [place] Urine Culture - Final Complete 06/03/25 22:00 Nose MRSA Screen - Final Complete 06/03/25 19:31 Sputum Gram Stain - Final Complete 06/03/25 19:31 Sputum Respiratory Culture - Final Complete 06/03/25 15:47 Blood Blood Culture - Final NO GROWTH AFTER 5 DAYS OF INCUBATION. Complete Assessment Impression: Acute hypoxic respiratory failure Dependence on supplemental oxygen Pleural effusion Atelectasis Septic shock Lung cancer. Plan: Supplemental oxygen Titrate to keep O2 sats above 92%. Currently on 5 LPM NC Taper O2 as tolerated. CXR reviewed, demonstrates stable-appearing right pleural effusion and multifocal right pulmonary airspace disease. Plan for right thoracentesis today. Continue bronchodilators. Continue antibiotics Follow up cultures. Incentive spirometry Protonix for GI prophylaxis Diurese w/ Lasix as tolerated Monitor renal function. Monitor electrolytes. Supplement as necessary. Monitor ins and outs. GI/DVT prophylaxis. Prognosis: Poor given patient's multiple co-morbidities. Condition: Critical Rest of plan per hospitalist and other consultants. A total of 35 minutes of critical care time was spent reviewing the patient record, examining the patient, making a diagnostic and therapeutic plan, discussing this plan with the medical personnel, following up on diagnostic studies and following the patient for clinical stability excluding any and all procedures. At least 50% of this time was spent in direct, [id number] contact. Thank you, Dr. Trotter, for allowing me to participate in this patient's care. Further recommendations will depend on the patient's clinical course. Please do not hesitate to contact me if you have any questions or concerns. This medical document was created using an electronic medical record system with [employer] dictation system. Although these documentations are being carefully reviewed, there may still be some phonetic and typographical changes. The errors are purely typographical, due to imperfection on the software program, and do not reflect any compromise in the patient's medical care. Plan discussed with: Patient, Other (RN/Dr. Trotter) Visit Coding Pulmonary Billing Provider: NICK HERRERA MD Date of Service if different f: Jun 08, 2025 Common Visit Codes: [id number] INP/OBS CARE (HIGH), [id number] CARE 30- 74 MIN NICK HERRERA MD Jun 08, 2025 23:56
[2025-06-09] VITALS (27 sets, daily range): BP systolic 90–154; BP diastolic 63–90; PULSE 80–115; RESP 16–97; TEMP 97.6–98.4; O2SAT 90–100
[2025-06-09 04:47] LABS: Alanine Aminotransferase 12 U/L (7-40); Albumin 3.5 g/dL (3.2-4.8); Alkaline Phosphatase 66 U/L (46-116); Anion Gap 10 (5-15); BUN/Creatinine Ratio 11.0 (10.0-20.0); Blood Urea Nitrogen 11 mg/dL (9-23); Sodium 140 mmol/L (136-145); Total Protein 6.3 g/dL (5.7-8.2)
[2025-06-09 04:48] LABS: Bilirubin, Total 0.5 mg/dL (0.2-1.0)
[2025-06-09 05:02] LABS: Calcium 8.6 mg/dL (8.7-10.4); Carbon Dioxide 32 mmol/L (20-31); Chloride 98 mmol/L (98-107); Glucose 153 mg/dL (74-106); Potassium 3.1 mmol/L (3.5-5.1)
[2025-06-09 05:07] LABS: Hematocrit 41.5 % (41.0-53.0); Hemoglobin 14.3 g/dL (13.5-17.5); Mean Corpuscular Hemoglobin 30.9 pg (28.0-32.0); Mean Corpuscular Volume 89.9 fL (80.0-100.0); Nucleated Red Blood Cells % 0.0 %
--- NOTE | 2025-06-09 05:51 | DVH ---
CHEST RADIOGRAPH Indication: plural effusion Technique: Single frontal view of the chest was obtained COMPARISON: XY CHEST PORTABLE on DOS: 06/08/25, XY CHEST XRAY 1 VIEW on DOS: 06/08/25, US CHEST ULTRASOUND on DOS: 06/07/25, XY CHEST XRAY 1 VIEW on DOS: 06/07/25, XY CHEST XRAY 1 VIEW on DOS: 06/06/25 FINDINGS: Lines and Tubes: None Lungs: Moderate diffuse increased prominence of the pulmonary vasculature. No evidence of focal consolidation. Pleura: No effusion. No pneumothorax. Cardiomediastinal contours: Unremarkable Bones: Unremarkable IMPRESSION: 1. Moderate diffuse increased prominence of the pulmonary vasculature.
[2025-06-09] MEDS: POTASSIUM EFFERVESENT TAB 25 MEQ PO ONE (07:51)
--- NOTE | 2025-06-09 08:39 | DVHPN2 ---
Progress Note Date Seen: Jun 09, 2025 Medical Necessity Reason Pt with a Central, PICC or Fol: No Objective vital signs Vital Sign Date Time Temp Pulse Resp B/P (MAP) Pulse Ox O2 Delivery O2 Flow Rate FiO2 06/09/25 08:00 90 06/09/25 08:00 19 98 Nasal Cannula* 2 28 06/09/25 07:00 102/68 (79) 06/09/25 06:00 98.2 98.2 Total Intake and Output 06/08/25 06/08/25 06/09/25 15:00 23:00 07:00 Intake Total 375 ml 315 ml 470 ml Output Total 1655 ml 855 ml Balance 375 ml -1340 ml -385 ml medications Current Medications Medications Dose Ordered Sig/[place] Route Start Time Stop Time Status Last Admin Dose Admin Piperacillin Sod/ Tazobactam Sod 100 ml @ 25 mls/hr Q8HR IV 06/03/25 22:00 06/09/25 05:38 25 MLS/HR Pantoprazole Sodium 40 mg DAILY IV 06/04/25 10:00 06/08/25 10:17 40 MG Albuterol 2.5 mg Q6HR NEB 06/04/25 18:00 06/09/25 06:03 2.5 MG Ipratropium [place] 0.5 mg Q6HR NEB 06/04/25 18:00 06/09/25 06:03 0.5 MG Vancomycin HCl 0 ml @ 0 mls/hr PER PHARMACY IV 06/05/25 10:30 Artificial Tears 1 drop Q6HP PRN EACHEYE 06/05/25 16:15 06/05/25 19:00 1 DROP Vancomycin HCl 250 ml @ 250 mls/hr Q12H IV 06/06/25 11:06/09/25 00:31 250 MLS/HR Melatonin 10 mg PRN PRN PO 06/06/25 16:00 06/07/25 21:27 10 MG Amlodipine Besylate 5 mg DAILY PO 06/07/25 10:00 06/08/25 10:17 5 MG Hydrochlorothiazide 25 mg DAILY PO 06/07/25 10:00 06/08/25 10:17 25 MG Acetaminophen 650 mg Q6HPRN PRN PO 06/06/25 18:15 06/09/25 07:51 650 MG Furosemide 20 mg DAILY PO 06/10/25 10:00 laboratory and microbiology Laboratory Tests 06/09/25 03:33 Test 06/09/25 03:33 Range/Units Serum Glucose 153 H 74-106 mg/dL Problem List/Assessment/Plan Problem List/Assessment/Plan 06/04/25 hemodynamically stable, wound clean and well approximated, abdomen soft and non distended, appears non tender, patient still somewhat sedated and remains ventilated , labs ok, will wean off vent 06/05/25 awake,responsive, remains intubated(?) wound clean and well approximated, no scrotal swelling, drainage serous, patient has post thoracotomy changes in left hemithorax, negligible pleural effusions bilaterally, i believe he can be extubated 06/09/25 wound healing well, no scrotal swelling, no post operative problems, remains in ICU due to factors not related to hernia operation, I will sign off, please recall if needed, I will see him in the clinic two weeks after discharge. Plan discussed with: Patient Dietary Evaluation Review Comments: 1. If GI/EN accessible, TF Vital AF @50ml/hr, providing 90g protein 1440kcal 973ml free water, meeting Pt needs @100% protein and 96% energy 2. Reassess when off intubation [facility]. [facility] if/when pt extubated, and passes RESPIRATORY THERAPY DIRECTOR evaluation 4. Follow PRN Expected Outcomes/Goals: Inproved nutrition status. recover from sepsis PAIGE ENRIQUE MD Jun 09, 2025 08:39
[2025-06-09] MEDS: FUROSEMIDE 20 MG/2 ML VIAL IV ONE (08:57)
--- NOTE | 2025-06-09 13:01 | DVHPNRES ---
Progress Note Date Seen: Jun 09, 2025 Resident Creating Document: JUANY BARRAZA RESIDENT Medical Necessity Reason Pt with a Central, PICC or Fol: No Subjective Review of Systems Patient is a 74-year-old male with past medical history of sleep apnea, hypertension, hyperlipidemia, lung cancer, hyperthyroidism who presented to the ED with chief complaints of abdominal pain as per son patient went to [place] and after returning had a severe 8/10 stomach ache which was radiating to the back, associated with nausea but did not vomit, patient uses CPAP machine at home, was scheduled for chemotherapy on 06/14. Past surgical history: Right upper lobe lobectomy on April 16 2025, hernia repair Family history: Noncontributory Personal history: Smoked since 40 years, ex alcohol user, denies any drugs 06/04/25: Patient seen in the ICU. Patient is intubated, ventilated with minimal settings. Patient underwent inguinal hernia repair, has a ROBSON drain with serosanguineous fluid. Surgery is following, we will do CPAP trial tomorrow morning. Patient has a right moderate pleural effusion. 06/05/25: patient seen in ICU. Patient was extubated today, on 8 L oxygen. Patient is alert, oriented, following commands, has no new complaints, is not in any acute abdominal pain. surgery following, 06/06/25: patient seen in ICU. Patient was extubated today, on 2 L oxygen. Patient is alert, oriented, following commands, has no new complaints, is not in any acute abdominal pain. Right pleural effusion worsened, IR consulted for thoracocentesis. and consulted PT. surgery following, 06/07/2025: patient seen in ICU. Patient was on 2 L oxygen, patient is alert oriented and following commands, has no new complaints and has no abdominal pain. IR consulted for thoracentesis, pending. ROBSON drain showed serosanguineous fluid. Surgery following. Switched his diet to soft mechanical diet. PT eval to be done. 06/08/25: patient seen in the ICU. Patient on 1 L oxygen. thoracentesis was done today. Draining serosanguineous fluid. Patient is eating, ambulating with PT. 06/09/25: Patient seen in ICU. Off oxygen. He underwent right-sided thoracentesis yesterday. Able to tolerate diet. Continue PT evaluation. Downgraded to telemetry. Objective vital signs Vital Sign Date Time Temp Pulse Resp B/P (MAP) Pulse Ox O2 Delivery O2 Flow Rate FiO2 06/09/25 11:50 82 23 100 06/09/25 11:44 Room Air 0.0 06/09/25 11:44 21 06/09/25 11:18 92/64 06/09/25 08:00 98.2 98.2 Total Intake and Output 06/08/25 06/08/25 06/09/25 15:00 23:00 07:00 Intake Total 375 ml 315 ml 470 ml Output Total 1655 ml 855 ml Balance 375 ml -1340 ml -385 ml medications Current Medications Medications Dose Ordered Sig/Payton Route Start Time Stop Time Status Last Admin Dose Admin Piperacillin Sod/ Tazobactam Sod 100 ml @ 25 mls/hr Q8HR IV 06/03/25 22:00 06/09/25 05:38 25 MLS/HR Pantoprazole Sodium 40 mg DAILY IV 06/04/25 10:00 06/09/25 11:17 40 MG Albuterol 2.5 mg Q6HR NEB 06/04/25 18:00 06/09/25 11:44 2.5 MG Ipratropium [place] 0.5 mg Q6HR NEB 06/04/25 18:00 06/09/25 11:44 0.5 MG Vancomycin HCl 0 ml @ 0 mls/hr PER PHARMACY IV 06/05/25 10:30 Artificial Tears 1 drop Q6HP PRN EACHEYE 06/05/25 16:15 06/05/25 19:00 1 DROP Vancomycin HCl 250 ml @ 250 mls/hr Q12H IV 06/06/25 11:00 06/09/25 00:31 250 MLS/HR Melatonin 10 mg PRN PRN PO 06/06/25 16:00 06/07/25 21:27 10 MG Amlodipine Besylate 5 mg DAILY PO 06/07/25 10:00 06/09/25 11:18 5 MG Hydrochlorothiazide 25 mg DAILY PO 06/07/25 10:00 06/09/25 11:18 25 MG Acetaminophen 650 mg Q6HPRN PRN PO 06/06/25 18:15 06/09/25 07:51 650 MG Furosemide 20 mg DAILY PO 06/10/25 10:00 Examination General: Extubated, opening his eyes and following commands HEENT: Normocephalic, atraumatic, moist mucous membranes Respiratory/pulmonary: Crackles heard on the right side Cardiovascular: Normal heart sounds S1 and S2 with no associated murmurs Abdomen: Abdomen nondistended, grimacing to abdominal palpation, has ROBSON drain in the left inguinal region Extremities: There is no peripheral edema present at the lower extremities. Peripheral Pulses: 3+ Radial (R). 3+ Radial (L). 3+ Dorsalis pedis (R). 3+ Dorsalis pedis(L) Skin: No rashes or pruritus, there is no sacral edema present at this time. Neurological: normal neurological exam laboratory and microbiology Laboratory Tests 06/09/25 03:33 Test 06/09/25 03:33 Range/Units Serum Glucose 153 H 74-106 mg/dL Microbiology Date/Time Source Procedure Growth Status 06/08/25 21:10 Pleural Fluid Gram Stain - Final Resulted 06/08/25 21:10 Pleural Fluid Body Fluid Culture - Preliminary No growth Resulted 06/04/25 16:00 Urine - [place] Urine Culture - Final Complete 06/03/25 22:00 Nose MRSA Screen - Final Complete 06/03/25 19:31 Sputum Gram Stain - Final Complete 06/03/25 19:31 Sputum Respiratory Culture - Final Complete 06/03/25 15:47 Blood Blood Culture - Final NO GROWTH AFTER 5 DAYS OF INCUBATION. Complete Problem List/Assessment/Plan Problem List/Assessment/Plan Neurology Acute metabolic encephalopathy - intubated, sedated Cardiology Septic shock due to Incarcerated left Inguinal Hernia with small bowel Hypertension Hyperlipidemia - IV Zosyn - added vancomycin - Echo ordered, pending - on Levophed Respiratory Right Moderate pleural effusion Acute hypoxic Hypercapnic respiratory failure status post intubation H/O Sleep apnea History of lung cancer - albuterol, ipratropium q.6 - Lasix 20 mg IV daily - Chest US- showed Moderate Right Pleural effusion - Chest xray daily - extubated 06/05 - on 8 L oxygen -static post right thoracentesis GI Septic shock likely due to complicated hernia Incarcerated left Inguinal Hernia with small bowel Status post repair of inguinal hernia - Surgery consulted , following - D/c metronidazole - IV Zosyn Q8 - added vancomycin - IV fluids -soft mechanical diet Renal/ Electrolytes Lactic Acidosis - Monitor labs Endocrine H/O Hyperthyroidism - Currently Euthyroid - patient taking methimazole as home medication Hematology Mild Normocytic Hypochromic anemia -monitor hemoglobin Lines / Tubes / Devices Airway: Intubated via ETT on 06/04, extubated 06/05 Vascular Access: Central line 06/04 Drips: Versed, fentanyl, Levophed Prophylaxis / Supportive Care DVT Prophylaxis: SCD GI Prophylaxis: Protonix. Patient underwent right thoracentesis yesterday, on room air right now. Able to tolerate diet. Able to ambulate well as well. Plan for downgrading to telemetry. Goals of care discussed with the patient family for more than 29 minutes: Full code state Critical time spent 83 minutes. Patient care updated to son, addressed all concerns. Critical care time spent with extubation excluding procedures 85 minutes Plan discussed with Dr. De Luna and RN Plan discussed with: Patient, Spouse (RN), Other My Orders My Orders Orders - JUANY BARRAZA Procedure Category Date Status Time Furosemide Tablet PHA 06/10/25 In Process (Lasix Tablet) 10:00 Transfer Orders XFER 06/09/25 Transmitted 10:12 Dietary Evaluation Review Comments: 1. If GI/EN accessible, TF Vital AF @50ml/hr, providing 90g protein 1440kcal 973ml free water, meeting Pt needs @100% protein and 96% energy 2. Reassess when off intubation 3. Advance to CCHO-60 diet if/when pt extubated, and passes BUS SYSTEM OPERATOR evaluation 4. Follow PRN Expected Outcomes/Goals: Inproved nutrition status. recover from sepsis JUANY BARRAZA RESIDENT Jun 09, 2025 13:01
--- NOTE | 2025-06-09 21:34 | DVHPN2 ---
Subjective DOS: 06/09/2025 Patient seen and examined at bedside. Remains on supplemental oxygen Overnight events reviewed. Changes from previous H/P or p: No Changes Eyes: No Pain, No Vision change, No Conjunctivae inflammation, No Eyelid inflammation, No Other, No Redness ENT: No Ear pain, No Ear discharge, No Nose pain, No Nose discharge, No Nose congestion, No Mouth pain, No Mouth swelling, No Throat pain, No Throat swelling, No Other Cardiovascular: No Chest Pain, No Palpitations, No Orthopnea, No Paroxysmal Noc. Dyspnea, No Edema, No Lt Headedness, No Other Respiratory: No Cough, No Dry, No Shortness of breath, No SOB with excertion, No Wheezing, No Hemoptysis, No Pleuritic Pain, No Sputum, No Other Gastrointestinal: Nausea; No Vomiting; Abdominal Pain; No Diarrhea, No Constipation, No Melena, No Hematochezia, No Other Genitourinary: No Dysuria, No Frequency, No Incontinence, No Hematuria, No Retention, No Other Musculoskeletal: No other, No neck pain, No shoulder pain, No arm pain, No back pain, No hand pain, No leg pain, No foot pain Skin: No Rash, No Lesions, No Jaundice, No Bruising, No Other Objective Vitals Vital Signs Date Time Temp Pulse Resp B/P (MAP) Pulse Ox O2 Delivery O2 Flow Rate FiO2 06/09/25 21:00 97.6 100 16 123/85 (98) 90 97.6 06/09/25 20:00 Room Air* 0 21 Intake/Output Intake and Output 06/09/25 07:00 Intake Total 1160 ml Output Total 2510 ml Balance -1350 ml Intake Oral 360 ml IV Total 800 ml Output Urine Total 2500 ml Gastric Drainage Total 0 ml Drainage Total 10 ml Exam Gen.: Patient lying in bed in no apparent distress. On supplemental oxygen. Head: Normocephalic, atraumatic. Eyes: EOMI/PERRLA. Ears: Normal hearing. Normal anatomy. Neck/trachea: Trachea midline, supple. Nose: Normal external anatomy. Mouth: Moist mucous membranes. Chest: Decreased air entry bilaterally. No wheezing or rhonchi. Cardiovascular: Positive S1, positive S2. Regular rate and rhythm. Abdomen: Positive bowel sounds in all 4 quadrants. Soft, non-tender, non- distended. : Deferred. Rectal: Deferred. Skin: Warm, dry. Intact. Extremities: 2+ radial pulses bilaterally. No lower extremity edema. Neuro: Awake, alert, oriented x3. No gross motor or sensory deficits. Cranial nerves II through XII intact. Gait not assessed. Medications Current Medications Medications Dose Ordered Sig/Payton Route Start Time Stop Time Status Last Admin Dose Admin Piperacillin Sod/ Tazobactam Sod 100 ml @ 25 mls/hr Q8HR IV 06/03/25 22:00 06/09/25 14:42 25 MLS/HR Pantoprazole Sodium 40 mg DAILY IV 06/04/25 10:00 06/09/25 11:17 40 MG Albuterol 2.5 mg Q6HR NEB 06/04/25 18:00 06/09/25 18:12 2.5 MG Ipratropium [place] 0.5 mg Q6HR NEB 06/04/25 18:00 06/09/25 18:12 0.5 MG Vancomycin HCl 0 ml @ 0 mls/hr PER PHARMACY IV 06/05/25 10:30 Artificial Tears 1 drop Q6HP PRN EACHEYE 06/05/25 16:15 06/05/25 19:00 1 DROP Melatonin 10 mg PRN PRN PO 06/06/25 16:00 06/07/25 21:27 10 MG Amlodipine Besylate 5 mg DAILY PO 06/07/25 10:00 06/09/25 11:18 5 MG Hydrochlorothiazide 25 mg DAILY PO 06/07/25 10:00 06/09/25 11:18 25 MG Acetaminophen 650 mg Q6HPRN PRN PO 06/06/25 18:15 06/09/25 07:51 650 MG Furosemide 20 mg DAILY PO 06/10/25 10:00 Laboratory Results Laboratory Tests 06/09/25 03:33 Chemistry Test 06/09/25 03:33 Albumin 3.5 g/dL (3.2-4.8) Calcium Level 8.6 mg/dL (8.7-10.4) L Magnesium Level 1.9 mg/dL (1.6-2.6) Total Protein 6.3 g/dL (5.7-8.2) LFT Test 06/09/25 03:33 Alanine Aminotransferase (ALT) 12 U/L (7-40) Alkaline Phosphatase 66 U/L (46-116) Aspartate Amino Transferase (AST) 23 U/L (13-40) Total Bilirubin 0.5 mg/dL (0.2-1.0) Urinalysis Test 06/03/25 17:15 Urine Color Light-yellow (Yellow) Urine Clarity Turbid (Clear) H Urine pH 7.5 (5.0-9.0) Urine Specific [place] 1.010 (1.001-1.035) Urine Protein Negative (Negative) Urine Ketones Negative (Negative) Urine Blood Negative /uL (Negative) Urine Nitrite Negative (Negative) Urine Bilirubin Negative (Negative) Urine Urobilinogen Normal mg/dL (Negative) Urine Leukocyte Esterase Negative /uL (Negative) Urine RBC 1 /hpf (0 - 3) Urine Microscopic WBC 6 /HPF (0-3) H Urine Squamous Epithelial Cells Few /hpf (<5) Urine Bacteria None seen /hpf (None Seen) Urine Glucose Normal mg/dL (Normal) Microbiology Microbiology Date/Time Source Procedure Growth Status 06/08/25 21:10 Pleural Fluid Gram Stain - Final Resulted 06/08/25 21:10 Pleural Fluid Body Fluid Culture - Preliminary No growth Resulted 06/04/25 16:00 Urine - [place] Urine Culture - Final Complete 06/03/25 22:00 Nose MRSA Screen - Final Complete 06/03/25 19:31 Sputum Gram Stain - Final Complete 06/03/25 19:31 Sputum Respiratory Culture - Final Complete 06/03/25 15:47 Blood Blood Culture - Final NO GROWTH AFTER 5 DAYS OF INCUBATION. Complete Assessment/Plan Assessment/Plan Impression: Acute hypoxic respiratory failure Dependence on supplemental oxygen Pleural effusion Atelectasis Septic shock Lung cancer. Events: Remains on supplemental oxygen On 5 LPM --> 3 LPM NC Improved oxygen requirements. Continue to taper O2 as tolerated S/p right thoracentesis on 06/08/25 with 1450 mL of alban fluid drained from right pleural space. Please see separate procedure note for details. Follow up pleural fluid cultures and cytology Continue bronchodilators Continue antibiotics Incentive spirometry Diurese w/ Lasix as tolerated Monitor renal function. Monitor electrolytes. Supplement as necessary. Potassium supplementation Physical therapy. GI prophylaxis on Protonix. We will discharge on PO diet as tolerated. Lovenox for DVT prophylaxis Labs and imaging reviewed. Rest of plan as noted below. Plan: Supplemental oxygen Titrate to keep O2 sats above 92%. Continue bronchodilators. Continue antibiotics Follow up cultures. Incentive spirometry Protonix for GI prophylaxis Diurese w/ Lasix as tolerated Monitor renal function. Monitor electrolytes. Supplement as necessary. Monitor ins and outs. GI/DVT prophylaxis. Prognosis: Poor given patient's multiple co-morbidities. Condition: Critical Rest of plan per hospitalist and other consultants. A total of 35 minutes of critical care time was spent reviewing the patient record, examining the patient, making a diagnostic and therapeutic plan, discussing this plan with the medical personnel, following up on diagnostic studies and following the patient for clinical stability excluding any and all procedures. At least 50% of this time was spent in direct, [id number] contact. Thank you, Dr. Trotter, for allowing me to participate in this patient's care. Further recommendations will depend on the patient's clinical course. Please do not hesitate to contact me if you have any questions or concerns. This medical document was created using an electronic medical record system with [employer] dictation system. Although these documentations are being carefully reviewed, there may still be some phonetic and typographical changes. The errors are purely typographical, due to imperfection on the software program, and do not reflect any compromise in the patient's medical care. Plan discussed with: Patient, Other (RN Prasanna) Visit Coding Pulmonary Billing Provider: NICK HERRERA MD Date of Service if different f: Jun 09, 2025 Common Visit Codes: 27131-[id number] INP/OBS CARE(HIGH), 62345-[id number] CARE 30-74 MIN NICK HERRERA MD Jun 09, 2025 21:34
[2025-06-10] VITALS (12 sets, daily range): BP systolic 113–127; BP diastolic 81–89; PULSE 90–102; RESP 16–20; TEMP 97.5–98.4; O2SAT 92–100
[2025-06-10 07:15] LABS: Hematocrit 41.1 % (41.0-53.0); Hemoglobin 14.2 g/dL (13.5-17.5); Mean Corpuscular Hemoglobin 31.3 pg (28.0-32.0); Mean Corpuscular Volume 90.8 fL (80.0-100.0); Nucleated Red Blood Cells % 0.1 %
[2025-06-10 08:16] LABS: Carbon Dioxide 31 mmol/L (20-31)
[2025-06-10 08:21] LABS: BUN/Creatinine Ratio 13.3 (10.0-20.0); Blood Urea Nitrogen 17 mg/dL (9-23); Calcium 8.5 mg/dL (8.7-10.4); Glucose 123 mg/dL (74-106)
[2025-06-10 08:22] LABS: Magnesium 2.0 mg/dL (1.6-2.6)
[2025-06-10 08:46] LABS: Anion Gap 13 (5-15); Chloride 100 mmol/L (98-107); Potassium 3.1 mmol/L (3.5-5.1); Sodium 144 mmol/L (136-145)
[2025-06-10] MEDS: FUROSEMIDE 20 MG TAB PO SCH (09:09)
[2025-06-10] MEDS: POTASSIUM EFFERVESENT TAB 25 MEQ PO ONE (09:45)
--- NOTE | 2025-06-10 09:56 | DVHPNRES ---
Progress Note Date Seen: Jun 10, 2025 Resident Creating Document: PADMINI MAHAN RESIDENT Medical Necessity Reason Pt with a Central, PICC or Fol: No Subjective Review of Systems Patient is a 74-year-old male with past medical history of sleep apnea, hypertension, hyperlipidemia, lung cancer, hyperthyroidism who presented to the ED with chief complaints of abdominal pain as per son patient went to [place] and after returning had a severe 8/10 stomach ache which was radiating to the back, associated with nausea but did not vomit, patient uses CPAP machine at home, was scheduled for chemotherapy on 06/14. Past surgical history: Right upper lobe lobectomy on April 16 2025, hernia repair Family history: Noncontributory Personal history: Smoked since 40 years, ex alcohol user, denies any drugs 06/04/25: Patient seen in the ICU. Patient is intubated, ventilated with minimal settings. Patient underwent inguinal hernia repair, has a ROBSON drain with serosanguineous fluid. Surgery is following, we will do CPAP trial tomorrow morning. Patient has a right moderate pleural effusion. 06/05/25: patient seen in ICU. Patient was extubated today, on 8 L oxygen. Patient is alert, oriented, following commands, has no new complaints, is not in any acute abdominal pain. surgery following, 06/06/25: patient seen in ICU. Patient was extubated today, on 2 L oxygen. Patient is alert, oriented, following commands, has no new complaints, is not in any acute abdominal pain. Right pleural effusion worsened, IR consulted for thoracocentesis. and consulted PT. surgery following, 06/07/2025: patient seen in ICU. Patient was on 2 L oxygen, patient is alert oriented and following commands, has no new complaints and has no abdominal pain. IR consulted for thoracentesis, pending. ROBSON drain showed serosanguineous fluid. Surgery following. Switched his diet to soft mechanical diet. PT eval to be done. 06/08/25: patient seen in the ICU. Patient on 1 L oxygen. thoracentesis was done today. Draining serosanguineous fluid. Patient is eating, ambulating with PT. 06/09/25: Patient seen in ICU. Off oxygen. He underwent right-sided thoracentesis yesterday. Able to tolerate diet. Continue PT evaluation. Downgraded to telemetry. 06/10/25: Patient seen at bedside. Downgraded to telemetry yesterday, of oxygen, 20 mL from ROBSON drain, surgery following, able to tolerate diet,. Continue PT evaluation. Objective vital signs Vital Sign Date Time Temp Pulse Resp B/P (MAP) Pulse Ox O2 Delivery O2 Flow Rate FiO2 06/10/25 09:09 118/89 06/10/25 08:00 Room Air* 0 21 06/10/25 05:00 97.5 90 17 92 97.5 Total Intake and Output 06/09/25 06/09/25 06/10/25 15:00 23:00 07:00 Intake Total 100 ml 440 ml 350 ml Output Total 410 ml 800 ml Balance 100 ml 30 ml -450 ml medications Current Medications Medications Dose Ordered Sig/[place] Route Start Time Stop Time Status Last Admin Dose Admin Piperacillin Sod/ Tazobactam Sod 100 ml @ 25 mls/hr Q8HR IV 06/03/25 22:00 06/10/25 05:53 25 MLS/HR Pantoprazole Sodium 40 mg DAILY IV 06/04/25 10:00 06/10/25 09:07 40 MG Albuterol 2.5 mg Q6HR NEB 06/04/25 18:00 06/10/25 07:14 2.5 MG Ipratropium [place] 0.5 mg Q6HR NEB 06/04/25 18:00 06/10/25 07:14 0.5 MG Vancomycin HCl 0 ml @ 0 mls/hr PER PHARMACY IV 06/05/25 10:30 Artificial Tears 1 drop Q6HP PRN EACHEYE 06/05/25 16:15 06/05/25 19:00 1 DROP Melatonin 10 mg PRN PRN PO 06/06/25 16:00 06/07/25 21:27 10 MG Amlodipine Besylate 5 mg DAILY PO 06/07/25 10:00 06/10/25 09:08 5 MG Hydrochlorothiazide 25 mg DAILY PO 06/07/25 10:00 06/10/25 09:09 25 MG Acetaminophen 650 mg Q6HPRN PRN PO 06/06/25 18:15 06/09/25 07:51 650 MG Furosemide 20 mg DAILY PO 06/10/25 10:00 06/10/25 09:09 20 MG Examination General: Extubated, opening his eyes and following commands HEENT: Normocephalic, atraumatic, moist mucous membranes Respiratory/pulmonary: Crackles heard on the right side Cardiovascular: Normal heart sounds S1 and S2 with no associated murmurs Abdomen: Abdomen nondistended, grimacing to abdominal palpation, has ROBSON drain in the left inguinal region Extremities: There is no peripheral edema present at the lower extremities. Peripheral Pulses: 3+ Radial (R). 3+ Radial (L). 3+ Dorsalis pedis (R). 3+ Dorsalis pedis(L) Skin: No rashes or pruritus, there is no sacral edema present at this time. Neurological: normal neurological exam laboratory and microbiology Laboratory Tests 06/10/25 05:56 Test 06/10/25 05:56 Range/Units Serum Glucose 123 H 74-106 mg/dL Microbiology Date/Time Source Procedure Growth Status 06/08/25 21:10 Pleural Fluid Gram Stain - Final Resulted 06/08/25 21:10 Pleural Fluid Body Fluid Culture - Preliminary No growth Resulted 06/04/25 16:00 Urine - [place] Urine Culture - Final Complete 06/03/25 22:00 Nose MRSA Screen - Final Complete 06/03/25 19:31 Sputum Gram Stain - Final Complete 06/03/25 19:31 Sputum Respiratory Culture - Final Complete 06/03/25 15:47 Blood Blood Culture - Final NO GROWTH AFTER 5 DAYS OF INCUBATION. Complete Problem List/Assessment/Plan Problem List/Assessment/Plan Neurology Acute metabolic encephalopathy - intubated, sedated Cardiology Septic shock due to Incarcerated left Inguinal Hernia with small bowel Hypertension Hyperlipidemia - IV Zosyn - added vancomycin - Echo ordered, pending - on Levophed Respiratory Right Moderate pleural effusion Acute hypoxic Hypercapnic respiratory failure status post intubation H/O Sleep apnea History of lung cancer - albuterol, ipratropium q.6 - Lasix 20 mg once given - Chest US- showed Moderate Right Pleural effusion - Chest xray daily - extubated 06/05 - on 8 L oxygen - thoracentesis done(06/08) with 1.5 L output. - Plural fluid showed increased WBC, RBC and pH of 7 GI Septic shock likely due to complicated hernia Incarcerated left Inguinal Hernia with small bowel Status post repair of inguinal hernia - Surgery consulted , following - D/c metronidazole - IV Zosyn Q8 - added vancomycin - IV fluids - NPO Renal/ Electrolytes Lactic Acidosis Hypokalemia - repleted potassium - Monitor labs Endocrine H/O Hyperthyroidism - Currently Euthyroid - patient taking methimazole as home medication Hematology Mild Normocytic Hypochromic anemia -monitor hemoglobin Lines / Tubes / Devices Airway: Intubated via ETT on 06/04, extubated 06/05 Vascular Access: Central line 06/04 Drips: Versed, fentanyl, Levophed Prophylaxis / Supportive Care DVT Prophylaxis: SCD GI Prophylaxis: Protonix. Goals of care discussed with the patient family for more than 29 minutes: Full code state Critical time spent 83 minutes. Patient care updated to son, addressed all concerns. Critical care time spent with extubation excluding procedures 85 minutes Plan discussed with Dr. Ellsworth and RN Plan discussed with: Patient, Spouse My Orders My Orders Orders - PADMINI MAHAN RESIDENT Procedure Category Date Status Time Potassium Effervesent PHA 06/10/25 Logged Tab (Klor-Con/Ef) 09:45 Dietary Evaluation Review Comments: 1. If GI/EN accessible, TF Vital AF @50ml/hr, providing 90g protein 1440kcal 973ml free water, meeting Pt needs @100% protein and 96% energy 2. Reassess when off intubation 3. Advance to CCHO-60 diet if/when pt extubated, and passes ACCESS CLINICIAN evaluation 4. Follow PRN Expected Outcomes/Goals: Inproved nutrition status. recover from sepsis PADMINI MAHAN RESIDENT Jun 10, 2025 09:56
[2025-06-10] MEDS: VANCOMYCIN 750MG KIT 100 ML IV SCH (19:37)
[2025-06-11] VITALS (14 sets, daily range): BP systolic 112–130; BP diastolic 80–95; PULSE 89–105; RESP 16–20; TEMP 97.8–98.6; O2SAT 91–99
[2025-06-11] MEDS: PANTOPRAZOLE 40 MG TAB PO SCH (05:34)
[2025-06-11 06:57] LABS: Hematocrit 41.6 % (41.0-53.0); Hemoglobin 14.2 g/dL (13.5-17.5); Mean Corpuscular Hemoglobin 31.3 pg (28.0-32.0); Mean Corpuscular Volume 91.4 fL (80.0-100.0); Nucleated Red Blood Cells % 0.1 %
[2025-06-11 07:13] LABS: Alanine Aminotransferase 17 U/L (7-40); Alkaline Phosphatase 60 U/L (46-116); Anion Gap 11 (5-15); BUN/Creatinine Ratio 11.0 (10.0-20.0); Blood Urea Nitrogen 13 mg/dL (9-23); Calcium 8.7 mg/dL (8.7-10.4); Chloride 101 mmol/L (98-107); Sodium 144 mmol/L (136-145); Total Protein 6.3 g/dL (5.7-8.2)
[2025-06-11 07:14] LABS: Albumin 3.5 g/dL (3.2-4.8); Bilirubin, Total 0.6 mg/dL (0.2-1.0)
[2025-06-11 07:25] LABS: Potassium 2.9 mmol/L (3.5-5.1)
[2025-06-11 07:26] LABS: Carbon Dioxide 32 mmol/L (20-31); Glucose 122 mg/dL (74-106)
--- NOTE | 2025-06-11 10:20 | DVH ---
CHEST RADIOGRAPH Indication: r/o right pleural effusion Technique: Single frontal view of the chest was obtained COMPARISON: XY CHEST XRAY 1 VIEW on DOS: 06/09/25, XY CHEST PORTABLE on DOS: 06/08/25, XY CHEST XRAY 1 VIEW on DOS: 06/08/25, US CHEST ULTRASOUND on DOS: 06/07/25, XY CHEST XRAY 1 VIEW on DOS: 06/07/25 FINDINGS: Lines and Tubes: None Lungs: Right lower lobe airspace disease. Pleura: No effusion. No pneumothorax. Cardiomediastinal contours: Unremarkable Bones: Unremarkable IMPRESSION: No appreciable pleural effusion or pneumothorax.
[2025-06-11] MEDS: POTASSIUM CHL 20MEQ/100ML 100 ML IV SCH (11:55)
--- NOTE | 2025-06-11 17:50 | DVHPNRES ---
Progress Note Date Seen: Jun 11, 2025 Resident Creating Document: PADMINI MAHAN RESIDENT Medical Necessity Reason Pt with a Central, PICC or Fol: No Subjective Review of Systems Patient is a 74-year-old male with past medical history of sleep apnea, hypertension, hyperlipidemia, lung cancer, hyperthyroidism who presented to the ED with chief complaints of abdominal pain as per son patient went to [facility] and after returning had a severe 8/10 stomach ache which was radiating to the back, associated with nausea but did not vomit, patient uses CPAP machine at home, was scheduled for chemotherapy on 06/14. Past surgical history: Right upper lobe lobectomy on April 16 2025, hernia repair Family history: Noncontributory Personal history: Smoked since 40 years, ex alcohol user, denies any drugs 06/04/25: Patient seen in the ICU. Patient is intubated, ventilated with minimal settings. Patient underwent inguinal hernia repair, has a ROBSON drain with serosanguineous fluid. Surgery is following, we will do CPAP trial tomorrow morning. Patient has a right moderate pleural effusion. 06/05/25: patient seen in ICU. Patient was extubated today, on 8 L oxygen. Patient is alert, oriented, following commands, has no new complaints, is not in any acute abdominal pain. surgery following, 06/06/25: patient seen in ICU. Patient was extubated today, on 2 L oxygen. Patient is alert, oriented, following commands, has no new complaints, is not in any acute abdominal pain. Right pleural effusion worsened, IR consulted for thoracocentesis. and consulted PT. surgery following, 06/07/2025: patient seen in ICU. Patient was on 2 L oxygen, patient is alert oriented and following commands, has no new complaints and has no abdominal pain. IR consulted for thoracentesis, pending. ROBSON drain showed serosanguineous fluid. Surgery following. Switched his diet to soft mechanical diet. PT eval to be done. 06/08/25: patient seen in the ICU. Patient on 1 L oxygen. thoracentesis was done today. Draining serosanguineous fluid. Patient is eating, ambulating with PT. 06/09/25: Patient seen in ICU. Off oxygen. He underwent right-sided thoracentesis yesterday. Able to tolerate diet. Continue PT evaluation. Downgraded to telemetry. 06/10/25: Patient seen at bedside. Downgraded to telemetry yesterday, of oxygen, 20 mL from ROBSON drain, surgery following, able to tolerate diet,. Continue PT evaluation. 06/11/2025: Patient seen at bedside. Patient is on room air, 10 mL from ROBSON drain, surgery following, patient is able to tell diet, complained of decreased appetite today. Discontinued vancomycin, is on IV Zosyn. daily potassium added today. Social service consult placed for discharge planning. Objective vital signs Vital Sign Date Time Temp Pulse Resp B/P (MAP) Pulse Ox O2 Delivery O2 Flow Rate FiO2 06/11/25 17:00 98.6 95 19 112/80 (91) 91 98.6 06/11/25 11:50 Room Air 06/11/25 11:50 0 21 21 Total Intake and Output 06/10/25 06/10/25 06/11/25 15:00 23:00 07:00 Intake Total 200 ml 400 ml Output Total 1010 ml 705 ml Balance 200 ml -1010 ml -305 ml medications Current Medications Medications Dose Ordered Sig/Payton Route Start Time Stop Time Status Last Admin Dose Admin Piperacillin Sod/ Tazobactam Sod 100 ml @ 25 mls/hr Q8HR IV 06/03/25 22:00 06/11/25 15:59 25 MLS/HR Albuterol 2.5 mg Q6HR NEB 06/04/25 18:00 06/11/25 11:50 2.5 MG Ipratropium [place] 0.5 mg Q6HR NEB 06/04/25 18:00 06/11/25 11:50 0.5 MG Artificial Tears 1 drop Q6HP PRN EACHEYE 06/05/25 16:15 06/05/25 19:00 1 DROP Melatonin 10 mg PRN PRN PO 06/06/25 16:00 06/07/25 21:27 10 MG Amlodipine Besylate 5 mg DAILY PO 06/07/25 10:00 06/11/25 09:24 5 MG Hydrochlorothiazide 25 mg DAILY PO 06/07/25 10:00 06/11/25 09:24 25 MG Acetaminophen 650 mg Q6HPRN PRN PO 06/06/25 18:15 06/09/25 07:51 650 MG Furosemide 20 mg DAILY PO 06/10/25 10:00 06/11/25 09:24 20 MG Pantoprazole Sodium 40 mg DAILY@0600 PO 06/11/25 06:00 06/11/25 05:34 40 MG Potassium Bicarbonate 25 meq DAILY PO 06/12/25 10:00 UNV Examination General: Extubated, opening his eyes and following commands HEENT: Normocephalic, atraumatic, moist mucous membranes Respiratory/pulmonary: Crackles heard on the right side Cardiovascular: Normal heart sounds S1 and S2 with no associated murmurs Abdomen: Abdomen nondistended, grimacing to abdominal palpation, has ROBSON drain in the left inguinal region Extremities: There is no peripheral edema present at the lower extremities. Peripheral Pulses: 3+ Radial (R). 3+ Radial (L). 3+ Dorsalis pedis (R). 3+ Dorsalis pedis(L) Skin: No rashes or pruritus, there is no sacral edema present at this time. Neurological: normal neurological exam laboratory and microbiology Laboratory Tests 06/11/25 05:28 Test 06/11/25 05:28 Range/Units Serum Glucose 122 H 74-106 mg/dL Microbiology Date/Time Source Procedure Growth Status 06/08/25 21:10 Pleural Fluid Gram Stain - Final Resulted 06/08/25 21:10 Pleural Fluid Body Fluid Culture - Preliminary No growth Resulted 06/04/25 16:00 Urine - [place] Urine Culture - Final Complete 06/03/25 22:00 Nose MRSA Screen - Final Complete 06/03/25 19:31 Sputum Gram Stain - Final Complete 06/03/25 19:31 Sputum Respiratory Culture - Final Complete 06/03/25 15:47 Blood Blood Culture - Final NO GROWTH AFTER 5 DAYS OF INCUBATION. Complete Problem List/Assessment/Plan Problem List/Assessment/Plan Neurology Acute metabolic encephalopathy - intubated, sedated Cardiology Septic shock due to Incarcerated left Inguinal Hernia with small bowel Hypertension Hyperlipidemia - IV Zosyn - Echo ordered, pending - on Levophed Respiratory Right Moderate pleural effusion Acute hypoxic Hypercapnic respiratory failure status post intubation H/O Sleep apnea History of lung cancer - albuterol, ipratropium q.6 - Lasix 20 mg once given - Chest US- showed Moderate Right Pleural effusion - Chest xray daily - extubated 06/05 - on 8 L oxygen - thoracentesis done(06/08) with 1.5 L output. - Plural fluid showed increased WBC, RBC and pH of 7 GI Septic shock likely due to complicated hernia Incarcerated left Inguinal Hernia with small bowel Status post repair of inguinal hernia - Surgery consulted , following - D/c metronidazole - IV Zosyn Q8 - added vancomycin - IV fluids - NPO Renal/ Electrolytes Lactic Acidosis Hypokalemia - repleted potassium - Monitor labs Endocrine H/O Hyperthyroidism - Currently Euthyroid - patient taking methimazole as home medication Hematology Mild Normocytic Hypochromic anemia -monitor hemoglobin Lines / Tubes / Devices Airway: Intubated via ETT on 06/04, extubated 06/05 Vascular Access: Central line 06/04 Drips: Versed, fentanyl, Levophed Prophylaxis / Supportive Care DVT Prophylaxis: SCD GI Prophylaxis: Protonix. Goals of care discussed with the patient family for more than 29 minutes: Full code state Patient care updated to son, addressed all concerns. Plan discussed with Dr. De Luna and RN Plan discussed with: Spouse My Orders My Orders Orders - PADMINI MAHAN Procedure Category Date Status Time Chest Xray 1 View XY 06/11/25 Resulted 09:24 Potassium Effervesent PHA 06/12/25 Logged Tab (Klor-Con/Ef) 10:00 Complete Blood Count LAB 06/11/25 Logged 17:45 Basic Metabolic Panel LAB 06/11/25 Logged 17:45 Magnesium LAB 06/11/25 Logged 17:45 * Cafeteria Aide CONS 06/11/25 Transmitted Consult Dietary Evaluation Review Comments: 1. If GI/EN accessible, TF Vital AF @50ml/hr, providing 90g protein 1440kcal 973ml free water, meeting Pt needs @100% protein and 96% energy 2. Reassess when off intubation 3. Advance to CCHO-60 diet if/when pt extubated, and passes VIDEO SYSTEM REPAIRER evaluation 4. Follow PRN Expected Outcomes/Goals: Inproved nutrition status. recover from sepsis Date of Service: Jun 11, 2025 Billing Provider: STACIA CARRENO MD Common Visit Codes: [id number] INP/OBS CARE(HIGH) Secondary Visit Codes: [id number] CARE PLAN 30 MINUTES PADMINI MAHAN Jun 11, 2025 17:50 STACIA CARRENO MD Jun 12, 2025 14:46
[2025-06-11 19:19] LABS: Hematocrit 43.3 % (41.0-53.0); Hemoglobin 14.8 g/dL (13.5-17.5); Mean Corpuscular Hemoglobin 31.3 pg (28.0-32.0); Mean Corpuscular Volume 91.6 fL (80.0-100.0); Nucleated Red Blood Cells % 0.0 %
[2025-06-11 19:21] LABS: Chloride 100 mmol/L (98-107); Sodium 144 mmol/L (136-145)
[2025-06-11 19:22] LABS: Anion Gap 12 (5-15); Calcium 8.9 mg/dL (8.7-10.4)
[2025-06-11 19:27] LABS: BUN/Creatinine Ratio 13.7 (10.0-20.0); Blood Urea Nitrogen 19 mg/dL (9-23)
[2025-06-11 19:28] LABS: Magnesium 1.9 mg/dL (1.6-2.6)
[2025-06-11 19:40] LABS: Carbon Dioxide 32 mmol/L (20-31); Glucose 139 mg/dL (74-106); Potassium 3.5 mmol/L (3.5-5.1)
[2025-06-12] VITALS (17 sets, daily range): BP systolic 118–134; BP diastolic 82–90; PULSE 85–100; RESP 16–18; TEMP 97.4–98.2; O2SAT 93–100
[2025-06-12] MEDS: POTASSIUM EFFERVESENT TAB 25 MEQ PO SCH (10:00)
[2025-06-12 13:08] LABS: Glucose, Body Fluid 154.0 mg/dL (.); LD, Body Fluid 143.0 IU/L (.)
--- NOTE | 2025-06-12 15:53 | DVHPNRES ---
Progress Note Date Seen: Jun 12, 2025 Resident Creating Document: PADMINI MAHAN RESIDENT Medical Necessity Reason Pt with a Central, PICC or Fol: No Subjective Review of Systems Patient is a 74-year-old male with past medical history of sleep apnea, hypertension, hyperlipidemia, lung cancer, hyperthyroidism who presented to the ED with chief complaints of abdominal pain as per son patient went to [facility] and after returning had a severe 8/10 stomach ache which was radiating to the back, associated with nausea but did not vomit, patient uses CPAP machine at home, was scheduled for chemotherapy on 06/14. Past surgical history: Right upper lobe lobectomy on April 16 2025, hernia repair Family history: Noncontributory Personal history: Smoked since 40 years, ex alcohol user, denies any drugs 06/04/25: Patient seen in the ICU. Patient is intubated, ventilated with minimal settings. Patient underwent inguinal hernia repair, has a ROBSON drain with serosanguineous fluid. Surgery is following, we will do CPAP trial tomorrow morning. Patient has a right moderate pleural effusion. 06/05/25: patient seen in ICU. Patient was extubated today, on 8 L oxygen. Patient is alert, oriented, following commands, has no new complaints, is not in any acute abdominal pain. surgery following, 06/06/25: patient seen in ICU. Patient was extubated today, on 2 L oxygen. Patient is alert, oriented, following commands, has no new complaints, is not in any acute abdominal pain. Right pleural effusion worsened, IR consulted for thoracocentesis. and consulted PT. surgery following, 06/07/2025: patient seen in ICU. Patient was on 2 L oxygen, patient is alert oriented and following commands, has no new complaints and has no abdominal pain. IR consulted for thoracentesis, pending. ROBSON drain showed serosanguineous fluid. Surgery following. Switched his diet to soft mechanical diet. PT eval to be done. 06/08/25: patient seen in the ICU. Patient on 1 L oxygen. thoracentesis was done today. Draining serosanguineous fluid. Patient is eating, ambulating with PT. 06/09/25: Patient seen in ICU. Off oxygen. He underwent right-sided thoracentesis yesterday. Able to tolerate diet. Continue PT evaluation. Downgraded to telemetry. 06/10/25: Patient seen at bedside. Downgraded to telemetry yesterday, of oxygen, 20 mL from ROBSON drain, surgery following, able to tolerate diet,. Continue PT evaluation. 06/11/2025: Patient seen at bedside. Patient is on room air, 10 mL from ROBSON drain, surgery following, patient is able to tell diet, complained of decreased appetite today. Discontinued vancomycin, is on IV Zosyn. daily potassium added today. Social service consult placed for discharge planning. 06/12/25: Patient seen at bedside. Patient is on room air, 10 mL from ROBSON drain, surgery signed out and patient is to follow-up in 10 days outpatient for ROBSON drain removal. Keflex p.o. given today. Discontinue Zosyn. Possible discharge tomorrow. Objective vital signs Vital Sign Date Time Temp Pulse Resp B/P (MAP) Pulse Ox O2 Delivery O2 Flow Rate FiO2 06/12/25 14:12 95 18 100 06/12/25 14:06 Room Air* 0 21 06/12/25 13:00 97.8 127/90 (102) 97.8 Total Intake and Output 06/11/25 06/11/25 06/12/25 15:00 23:00 07:00 Intake Total 200 ml 350 ml 0 ml Output Total 900 ml 205 ml Balance 200 ml -550 ml -205 ml medications Current Medications Medications Dose Ordered Sig/Payton Route Start Time Stop Time Status Last Admin Dose Admin Albuterol 2.5 mg Q6HR NEB 06/04/25 18:00 06/12/25 14:06 2.5 MG Ipratropium [place] 0.5 mg Q6HR NEB 06/04/25 18:00 06/12/25 14:07 0.5 MG Artificial Tears 1 drop Q6HP PRN EACHEYE 06/05/25 16:15 06/05/25 19:00 1 DROP Melatonin 10 mg PRN PRN PO 06/06/25 16:00 06/07/25 21:27 10 MG Amlodipine Besylate 5 mg DAILY PO 06/07/25 10:00 06/12/25 11:27 5 MG Acetaminophen 650 mg Q6HPRN PRN PO 06/06/25 18:15 06/09/25 07:51 650 MG Furosemide 20 mg DAILY PO 06/10/25 10:00 06/12/25 11:27 20 MG Pantoprazole Sodium 40 mg DAILY@0600 PO 06/11/25 06:00 06/12/25 06:18 40 MG Potassium Bicarbonate 25 meq DAILY PO 06/12/25 10:00 06/12/25 10:00 25 MEQ Cephalexin 500 mg Q8HR PO 06/12/25 22:00 Examination General: Extubated, opening his eyes and following commands HEENT: Normocephalic, atraumatic, moist mucous membranes Respiratory/pulmonary: Crackles heard on the right side Cardiovascular: Normal heart sounds S1 and S2 with no associated murmurs Abdomen: Abdomen nondistended, grimacing to abdominal palpation, has ROBSON drain in the left inguinal region Extremities: There is no peripheral edema present at the lower extremities. Peripheral Pulses: 3+ Radial (R). 3+ Radial (L). 3+ Dorsalis pedis (R). 3+ Dorsalis pedis(L) Skin: No rashes or pruritus, there is no sacral edema present at this time. Neurological: normal neurological exam laboratory and microbiology Laboratory Tests 06/11/25 18:39 Test 06/12/25 15:10 Range/Units Serum Glucose Pending Microbiology Date/Time Source Procedure Growth Status 06/08/25 21:10 Pleural Fluid Gram Stain - Final Resulted 06/08/25 21:10 Pleural Fluid Body Fluid Culture - Preliminary No growth Resulted 06/04/25 16:00 Urine - [place] Urine Culture - Final Complete 06/03/25 22:00 Nose MRSA Screen - Final Complete 06/03/25 19:31 Sputum Gram Stain - Final Complete 06/03/25 19:31 Sputum Respiratory Culture - Final Complete 06/03/25 15:47 Blood Blood Culture - Final NO GROWTH AFTER 5 DAYS OF INCUBATION. Complete Problem List/Assessment/Plan Problem List/Assessment/Plan Neurology Acute metabolic encephalopathy - intubated, sedated Cardiology Septic shock due to Incarcerated left Inguinal Hernia with small bowel Hypertension Hyperlipidemia - IV Zosyn - added vancomycin - Echo ordered, pending - on Levophed Respiratory Right Moderate pleural effusion Acute hypoxic Hypercapnic respiratory failure status post intubation H/O Sleep apnea History of lung cancer - albuterol, ipratropium q.6 - Lasix 20 mg once given - Chest US- showed Moderate Right Pleural effusion - Chest xray daily - extubated 06/05 - on 8 L oxygen - thoracentesis done(06/08) with 1.5 L output. - Plural fluid showed increased WBC, RBC and pH of 7 GI Septic shock likely due to complicated hernia Incarcerated left Inguinal Hernia with small bowel Status post repair of inguinal hernia - Surgery consulted , following - D/c metronidazole - IV Zosyn Q8 - added vancomycin - IV fluids - NPO Renal/ Electrolytes Lactic Acidosis Hypokalemia - repleted potassium - Monitor labs Endocrine H/O Hyperthyroidism - Currently Euthyroid - patient taking methimazole as home medication Hematology Mild Normocytic Hypochromic anemia -monitor hemoglobin Lines / Tubes / Devices Airway: Intubated via ETT on 06/04, extubated 06/05 Vascular Access: Central line 06/04 Drips: Versed, fentanyl, Levophed Prophylaxis / Supportive Care DVT Prophylaxis: SCD GI Prophylaxis: Protonix. Goals of care discussed with the patient family for more than 29 minutes: Full code state Patient care updated to son, addressed all concerns. Plan discussed with Dr. De Luna and RN Plan discussed with: Spouse My Orders My Orders Orders - PADMINI MAHAN RESIDENT Procedure Category Date Status Time Potassium Effervesent PHA 06/12/25 In Process Tab (Klor-Con/Ef) 10:00 * International Tax Manager CONS 06/11/25 Transmitted Consult D/C [place] FADY 06/12/25 In Process 08:58 Finasteride Tablet PHA 06/13/25 Logged (Proscar Tablet) 10:00 Methimazole Tab PHA 06/15/25 Logged (Tapazole) 12:00 Tamsulosin PHA 06/12/25 Logged Hydrochloride (Flomax) 18:00 Dietary Evaluation Review Comments: 1. If GI/EN accessible, TF Vital AF @50ml/hr, providing 90g protein 1440kcal 973ml free water, meeting Pt needs @100% protein and 96% energy 2. Reassess when off intubation [facility]. [facility] if/when pt extubated, and passes PICKER/PULLER evaluation 4. Follow PRN Expected Outcomes/Goals: Inproved nutrition status. recover from sepsis PADMINI MAHAN RESIDENT Jun 12, 2025 15:53
[2025-06-12 16:03] LABS: Chloride 101 mmol/L (98-107); Potassium 3.7 mmol/L (3.5-5.1); Sodium 144 mmol/L (136-145)
[2025-06-12 16:04] LABS: Anion Gap 13 (5-15); Carbon Dioxide 30 mmol/L (20-31)
[2025-06-12 16:05] LABS: Calcium 8.7 mg/dL (8.7-10.4)
[2025-06-12 16:09] LABS: BUN/Creatinine Ratio 17.1 (10.0-20.0); Blood Urea Nitrogen 20 mg/dL (9-23)
[2025-06-12 16:12] LABS: Glucose 123 mg/dL (74-106)
[2025-06-12] MEDS: CEPHALEXIN 250 MG CAP PO SCH (22:13)
[2025-06-12] MEDS: TAMSULOSIN HYDROCHLORIDE 0.4 MG CAP PO SCH (22:17)
[2025-06-13] VITALS (12 sets, daily range): BP systolic 116–134; BP diastolic 81–94; PULSE 71–106; RESP 16–18; TEMP 97.4–98; O2SAT 82–100
[2025-06-13 06:57] LABS: Hematocrit 39.6 % (41.0-53.0); Hemoglobin 13.5 g/dL (13.5-17.5); Mean Corpuscular Hemoglobin 30.9 pg (28.0-32.0); Mean Corpuscular Volume 90.5 fL (80.0-100.0); Nucleated Red Blood Cells % 0.1 %
[2025-06-13 07:07] LABS: Alanine Aminotransferase 16 U/L (7-40); Albumin 3.5 g/dL (3.2-4.8); Alkaline Phosphatase 65 U/L (46-116); Anion Gap 13 (5-15); BUN/Creatinine Ratio 15.1 (10.0-20.0); Bilirubin, Total 0.5 mg/dL (0.2-1.0); Blood Urea Nitrogen 18 mg/dL (9-23); Calcium 8.7 mg/dL (8.7-10.4); Carbon Dioxide 31 mmol/L (20-31); Chloride 100 mmol/L (98-107); Glucose 124 mg/dL (74-106); Potassium 2.7 mmol/L (3.5-5.1); Sodium 144 mmol/L (136-145); Total Protein 6.4 g/dL (5.7-8.2)
[2025-06-13] MEDS: FINASTERIDE 5 MG TAB PO SCH (09:39)
[2025-06-13] MEDS ORDERED: CEPH500C PO (12:25)
[2025-06-13] MEDS: POTASSIUM CHL 20MEQ/100ML 100 ML IV SCH (13:05)
[2025-06-13] MEDS ORDERED: POTASSIUM EFFERVESENT TAB 25 MEQ PO ONE (13:45)
[2025-06-13] MEDS: methIMAzole 5 MG TAB PO SCH (13:55)
[2025-06-13] MEDS: POTASSIUM CHL 20 Meq TABLET PO ONE (13:57)
[2025-06-13] MEDS: POTASSIUM EFFERVESENT TAB 25 MEQ PO ONE (16:06)
--- NOTE | 2025-06-13 16:16 | DVHDSRES ---
Discharge Summary Date of Admission Resident Creating Document: PADMINI MAHAN RESIDENT Jun 03, 2025 at 21:18 Date of Discharge: Jun 13, 2025 Admitting Diagnosis Incarcerated left inguinal hernia Labs/Diagnostic Data: Laboratory Results Test 06/13/25 15:11 06/13/25 05:25 06/10/25 05:56 06/09/25 10:42 Potassium Level 3.2 mmol/L (3.5-5.1) White Blood Count 9.7 10^3/uL (4.4-10.8) Red Blood Count 4.38 10^6/uL (4.5-5.90) Hemoglobin 13.5 g/dL (13.5-17.5) Hematocrit 39.6 % (41.0-53.0) Mean Corpuscular Volume 90.5 fL (80.0-100.0) Mean Corpuscular Hemoglobin 30.9 pg (28.0-32.0) Mean Corpuscular Hemoglobin Concent 34.1 g/dL (32.0-36.0) Red Cell Distribution Width 12.9 % (11.8-14.3) Platelet Count 371 10^3/uL (140-450) Mean Platelet Volume 8.3 fL (6.9-10.8) Neutrophils (%) (Auto) 68.5 % (37.0-80.0) Lymphocytes (%) (Auto) 15.4 % (10.0-50.0) Monocytes (%) (Auto) 8.4 % (0.0-12.0) Eosinophils (%) (Auto) 6.8 % (0.0-7.0) Basophils (%) (Auto) 0.9 % (0.0-2.0) Neutrophils # (Auto) 6.6 10 ^3/uL (1.6-8.6) Lymphocytes # (Auto) 1.5 10 ^3/uL (0.4-5.4) Monocytes # (Auto) 0.8 10 ^3/uL (0-1.3) Eosinophils # (Auto) 0.7 10 ^3/uL (0-0.8) Basophils # (Auto) 0.1 10 ^3/uL (0-0.2) Nucleated Red Blood Cells 0.1 % Sodium Level 144 mmol/L (136-145) Chloride Level 100 mmol/L (98-107) Carbon Dioxide Level 31 mmol/L (20-31) Anion Gap 13 (5-15) Blood Urea Nitrogen 18 mg/dL (9-23) Creatinine 1.19 mg/dL (0.700-1.30) Glomerular Filtration Rate Calc 65 mL/min (>90) BUN/Creatinine Ratio 15.1 (10.0-20.0) Serum Glucose 124 mg/dL (74-106) Calcium Level 8.7 mg/dL (8.7-10.4) Magnesium Level 1.9 mg/dL (1.6-2.6) Total Bilirubin 0.5 mg/dL (0.2-1.0) Aspartate Amino Transferase (AST) 16 U/L (13-40) Alanine Aminotransferase (ALT) 16 U/L (7-40) Alkaline Phosphatase 65 U/L (46-116) Total Protein 6.4 g/dL (5.7-8.2) Albumin 3.5 g/dL (3.2-4.8) Random Vancomycin Level 13.6 ug/mL (5-10) Vancomycin Level Trough 23.5 ug/mL (5-10) Test 06/08/25 21:10 06/08/25 06:23 06/08/25 02:52 06/05/25 13:30 Body Fluid Source Pleural fluid Body Fluid pH 7.0 Body Fluid WBC (Manual) 3229 CUMM (0-200) Body Fluid RBC (Manual) 3961 CUMM (0-2000) Body Fluid Mononuclear Cells 94 % Body Fluid Polymorphonuclear Cells 6 % (0-25) Body Fluid Glucose 154 mg/dL (.) Body Fluid Total Protein 3.9 g/dL (.) Body Fluid Lactate Dehydrogenase 143 IU/L (.) POC Glucose 163 mg/dl (70-106) Phosphorus Level 3.4 mg/dL (2.4-5.1) Blood Gas Specimen Type Arterial Blood Gas Sample Site Left radial Blood Gas Patient Temperature 37.0 Arterial Blood Date Drawn [id number] Arterial Blood pH 7.441 (7.350-7.450) Arterial Blood Partial Pressure CO2 33.1 mmHg (35.0-48.0) Arterial Blood Partial Pressure O2 69.4 mmHg (83.0-108.0) Arterial Blood HCO3 22.0 mmol/L (21.0-28.0) Arterial Blood Oxygen Saturation 93.9 % (94.0-98.0) Arterial Blood Base Excess -1.3 mmol/L (-2.0-3.0) Arterial Blood Oxyhemoglobin 93.3 % (94.0-98.0) Arterial Blood Carboxyhemoglobin 0.2 % (0.5-1.5) Arterial Blood Methemoglobin 0.4 % (0.0-1.5) Tong Test Modified Blood Gas Total Hemoglobin 14.40 g/dL (13.5-17.5) Blood Gas Modality Vent - cpap FiO2 % 30.0 Blood Gas Pressure Support 8 Blood Gas PEEP or CPAP 5.0 Test 06/05/25 07:33 06/04/25 19:59 06/04/25 02:30 06/03/25 17:15 Blood Gas Set Respiration Rate 20.0 Blood Gas Tidal Volume 450.0 Free Thyroxine (T4) Calculated 1.16 ng/dL (0.89-1.76) Free Triiodothyronine (T3) pg/mL 2.54 pg/mL (2.3-4.2) Lactic Acid Level 0.7 mmol/L (0.4-2.0) Urine Color Light-yellow (Yellow) Urine Clarity Turbid (Clear) Urine pH 7.5 (5.0-9.0) Urine Specific [place] 1.010 (1.001-1.035) Urine Protein Negative (Negative) Urine Ketones Negative (Negative) Urine Blood Negative /uL (Negative) Urine Nitrite Negative (Negative) Urine Bilirubin Negative (Negative) Urine Urobilinogen Normal mg/dL (Negative) Urine Leukocyte Esterase Negative /uL (Negative) Urine RBC 1 /hpf (0 - 3) Urine Microscopic WBC 6 /HPF (0-3) Urine Squamous Epithelial Cells Few /hpf (<5) Urine Bacteria None seen /hpf (None Seen) Urine Glucose Normal mg/dL (Normal) Test 06/03/25 15:11 Prothrombin Time 10.8 sec (9.3-11.8) Prothrombin Time INR 1.02 (0.9-1.15) Activated Partial Thromboplast Time 26.9 SEC (24.5-34.5) Hemoglobin A1c 5.7 % A1C (<5.7) Troponin I High Sensitivity 17 ng/L (</=54) Thyroid Stimulating Hormone (TSH) 0.34 uIU/mL (0.55-4.78) Other Laboratory Tests 06/13/25 15:11 06/13/25 05:25 Brief Hx & Hospital Course: Patient is a 74-year-old male with past medical history of sleep apnea, hypertension, hyperlipidemia, lung cancer, hyperthyroidism who presented to the ED with chief complaints of abdominal pain as per son patient went to [place] and after returning had a severe 8/10 stomach ache which was radiating to the back, associated with nausea but did not vomit, patient uses CPAP machine at home, was scheduled for chemotherapy on 06/14. Past surgical history: Right upper lobe lobectomy on April 16 2025, hernia repair Family history: Noncontributory Personal history: Smoked since 40 years, ex alcohol user, denies any drugs Brief hospital course: Patient came with chief complaints of abdominal pain, Patient was intubated, sedated, underwent inguinal hernia repair on 06/03/25. patient had acute metabolic encephalopathy for which she was intubated, sedated, weaned of sedation. Patient had septic shock due to incarcerated left inguinal hernia , hypertension, hyperlipidemia for which IV Zosyn was started, added vancomycin, echocardiogram was ordered which showed MILD LVH AND MILD LV DIASTOLIC DYSFUNCTION LV EF IS 70% AND IS NORMAL. patient was extubated on 06/05. chest ultrasound showed moderate right pleural effusion patient had a right moderate pleural effusion for which thoracentesis was done on (06/08) with 1.5 L output. fluid showed increased WBC, RBC, pH of 7, for which chest x-ray was done daily. Started on albuterol, ipratropium q.6. Patient had incarcerated left inguinal hernia with small bowel, status post repair of inguinal hernia for which surgery was consulted, IV Zosyn Q 8 was given and I added vancomycin, IV fluids and patient was kept NPO started feeding with pureed diet and increased slowly to soft mechanical diet. Patient had lactic acidosis, hypokalemia for which potassium was replaced and labs were monitored. Patient has hypothyroidism for which his home medication methimazole was continued. Patient had mild normocytic hypochromic anemia for which hemoglobin was monitored and was stable. Patient was given DVT prophylaxis with SCDs, GI prophylaxis with Protonix. Patient has a ROBSON drain which drained minimal fluid at discharge. was educated on how to drain the ROBSON drain. Patient is advised to follow up with discharge Clinic and surgery outpatient for ROBSON drain removal. Patient is to take Keflex. 500 Mg t.i.d. continue home medications. Patient is stable for discharge. General: Patient alert and oriented in person, place and time. Patient following commands. HEENT: Normocephalic, atraumatic, moist mucous membranes Respiratory/pulmonary: Clear lungs bilaterally, vesicular murmurs present in almost all lung lopez, no associated crackles or wheezes. Cardiovascular: Normal heart sounds S1 and S2 with no associated murmurs Abdomen: Abdomen nondistended, there is no pain to palpation in any of the abdominal quadrants, no palpable masses. ROBSON drain in left inguinal region. Extremities: There is no peripheral edema present at the lower extremities. Peripheral Pulses: 3+ Radial (R). 3+ Radial (L). 3+ Dorsalis pedis (R). 3+ Dorsalis pedis(L) Skin: No rashes or pruritus, there is no sacral edema present at this time. Neurological: Intact cranial nerves with no focal neurologic deficits Time spent on discharge planning 73 minutes Operations or Procedures ORDERING PHYSICIAN: MALVIN EVANS MD PROCEDURE(s): ABPL - CT AB PEL WO CON-NO ORAL OR IV REASON: colitis ORDER NUMBER(s): [id number], ACCESSION NUMBER(s): [id number] Exam: CT CT AB PEL WO CON-NO ORAL OR IV History: Colitis. Comparison Study: None Technique: Multidetector spiral CT of the abdomen and pelvis was performed from lung bases to pubic symphysis. Imaging was performed without intravenous contrast. Coronal and sagittal multiplanar reformats were obtained from the axial data set by the technologist. Radiation Dose : 1. Abdomen/Pelvis: CTDIvol 11.1 mGy, DLP 674.1 mGy*cm. Findings: Evaluation of vasculature and solid organs is limited due to lack of intravenous contrast use. Lung Bases: Moderate right pleural effusion. Visualized portions of the heart and pericardium are unremarkable. Liver: The liver is small with nodular contour. Gallbladder and Biliary Tree: The gallbladder is unremarkable. No intrahepatic or extrahepatic biliary ductal dilatation. Spleen: Unremarkable Pancreas: The pancreas is grossly unremarkable. Adrenal Glands: There is a 1.4 cm low-density left adrenal nodule. The right adrenal gland shows thickening. Kidneys: Bilateral renal cysts. There is a 5 mm nonobstructive left renal calculus. GI tract: The stomach is grossly normal in appearance. There is a left inguinal hernia containing small bowel loops. There is dilatation of the bowel loops within the hernia with mesenteric edema and mild mucosal thickening. Sigmoid colon is also contained in the left inguinal hernia. There is mild mucosal thickening of the rectum. No acute appendicitis. Peritoneum/mesentery/retroperitoneum. No evidence of free intraperitoneal air. No ascites. No evidence of suspicious lymphadenopathy. Abdominal Wall: Unremarkable. Vasculature: The visualized abdominal aorta is normal in size and caliber. Evaluation of abdominal and pelvic vessels is limited due to lack of intravenous contrast. Urinary Bladder: Grossly unremarkable for degree of distention. Pelvic Organs: The prostate is enlarged measuring 6.6 cm. Musculoskeletal: No aggressive focal bony lesions, acute fractures or dislocation. Multilevel lumbar spondylosis. IMPRESSION: 1. Left inguinal hernia containing small bowel loops and sigmoid colon. 2. There is dilatation of the small bowel loops within the hernia with mesenteric edema and mild mucosal thickening. Findings highly suspicious for incarcerated bowel. 3. Moderate right pleural effusion. 4. Small liver with nodular contour suspicious for cirrhosis. 5. Prostatomegaly. ATED BY: EVA THRASHER MD DICTATED DATE/TIME: 06/03/251544 SIGNED BY: EVA THRASHER MD SIGNED DATE/TIME: 06/03/25 154 ORDERING PHYSICIAN: GIUSEPPE GUTIÉRREZ RESIDENT PROCEDURE(s): CXRP - CHEST PORTABLE REASON: central line insertion ORDER NUMBER(s): [id number], ACCESSION NUMBER(s): [id number] CHEST RADIOGRAPH Indication: central line insertion Technique: Single frontal view of the chest was obtained COMPARISON: XY CHEST XRAY 1 VIEW on DOS: 06/03/25; 19:16 hrs FINDINGS / IMPRESSION: Lines and Tubes: Interval insertion of right IJ central venous catheter with its tip projecting over SVC. ETT again noted with its tip approximately 6 cm above the antonio and NG tube extends below the diaphragm with its tip projecting over gastric body. Lungs / Pleura: Pulmonary vascular congestion. Bibasilar opacities and probable small bilateral effusions, not significantly changed compared to the prior chest x-ray. No pneumothorax. Cardiomediastinal contours: Unremarkable DICTATED BY: BLANE MARIN MD DICTATED DATE/TIME: 06/04/2551 ORDERING PHYSICIAN: PADMINI MAHAN [facility] REASON: right plural effusion ORDER NUMBER(s): [id number], ACCESSION NUMBER(s): [id number] US CHEST ULTRASOUND HISTORY: right plural effusion COMPARISON(S): XY CHEST PORTABLE on DOS: 06/04/25, XY CHEST XRAY 1 VIEW on DOS: 06/03/25, XY CHEST PORTABLE on DOS: 06/03/25 TECHNICAL DATA: Transverse and longitudinal images are obtained of the chest. FINDING: IMPRESSION(S): There is a moderate right pleural effusion. ATED BY: YG SEWELL MD DICTATED DATE/TIME: 06/04/251234 SIGNED BY: YG SEWELL MD SIGNED DATE/TIME: 06/04/251234 - ORDERING PHYSICIAN: PADMINI MAHAN RESIDENT PROCEDURE(s): CXR1 - CHEST XRAY 1 VIEW REASON: plural effusion ORDER NUMBER(s): [id number], ACCESSION NUMBER(s): [id number] CHEST RADIOGRAPH Indication: plural effusion Technique: Single frontal view of the chest was obtained COMPARISON: US CHEST ULTRASOUND on DOS: 06/07/25, XY CHEST XRAY 1 VIEW on DOS: 06/07/25, XY CHEST XRAY 1 VIEW on DOS: 06/06/25, XY CHEST XRAY 1 VIEW on DOS: 06/05/25, US CHEST ULTRASOUND on DOS: 06/04/25 FINDINGS: Lines and Tubes: None Lungs: Stable appearing right pleural effusion and multifocal right pulmonary airspace disease. No pneumothorax. Cardiomediastinal contours: Unremarkable Bones: Unremarkable IMPRESSION: 1. Stable appearing right pleural effusion and multifocal right pulmonary airspace disease. ATED BY: CALEB BROWN MD DICTATED DATE/TIME: 06/08/25544 SIGNED BY: CALEB BROWN MD SIGNED DATE/TIME: 06/08/25544 ORDERING PHYSICIAN: PADMINI MAHAN RESIDENT PROCEDURE(s): CXR1 - CHEST XRAY 1 VIEW REASON: plural effusion ORDER NUMBER(s): [id number], ACCESSION NUMBER(s): [id number] CHEST RADIOGRAPH Indication: plural effusion Technique: Single frontal view of the chest was obtained COMPARISON: XY CHEST PORTABLE on DOS: 06/08/25, XY CHEST XRAY 1 VIEW on DOS: 06/08/25, US CHEST ULTRASOUND on DOS: 06/07/25, XY CHEST XRAY 1 VIEW on DOS: 06/07/25, XY CHEST XRAY 1 VIEW on DOS: 06/06/25 FINDINGS: Lines and Tubes: None Lungs: Moderate diffuse increased prominence of the pulmonary vasculature. No evidence of focal consolidation. Pleura: No effusion. No pneumothorax. Cardiomediastinal contours: Unremarkable Bones: Unremarkable IMPRESSION: 1. Moderate diffuse increased prominence of the pulmonary vasculature. ATED BY: CALEB BROWN MD DICTATED DATE/TIME: 06/09/2549 SIGNED BY: CALEB BROWN MD SIGNED DATE/TIME: 06/09/2549 - ORDERING PHYSICIAN: PADMINI MAHAN RESIDENT PROCEDURE(s): CXR1 - CHEST XRAY 1 VIEW REASON: r/o right pleural effusion ORDER NUMBER(s): [id number], ACCESSION NUMBER(s): [id number] CHEST RADIOGRAPH Indication: r/o right pleural effusion Technique: Single frontal view of the chest was obtained COMPARISON: XY CHEST XRAY 1 VIEW on DOS: 06/09/25, XY CHEST PORTABLE on DOS: 06/08/25, XY CHEST XRAY 1 VIEW on DOS: 06/08/25, US CHEST ULTRASOUND on DOS: 06/07/25, XY CHEST XRAY 1 VIEW on DOS: 06/07/25 FINDINGS: Lines and Tubes: None Lungs: Right lower lobe airspace disease. Pleura: No effusion. No pneumothorax. Cardiomediastinal contours: Unremarkable Bones: Unremarkable IMPRESSION: No appreciable pleural effusion or pneumothorax. ATED BY: ARIEL VILLAGOMEZ MD DICTATED DATE/TIME: 06/11/251016 SIGNED BY: ARIEL VILLAGOMEZ MD SIGNED DATE/TIME: 06/11/251016 Condition at Discharge: Stable Final Diagnosis/Problems List Acute metabolic encephalopathy Septic shock due to Incarcerated left Inguinal Hernia with small bowel S/p left inguinal repair Hypertension Hyperlipidemia Right Moderate pleural effusion Acute hypoxic Hypercapnic respiratory failure status post intubation H/O Sleep apnea History of lung cancer Septic shock likely due to complicated hernia Incarcerated left Inguinal Hernia with small bowel Status post repair of inguinal hernia Lactic Acidosis Hypokalemia H/O Hyperthyroidism Mild Normocytic Hypochromic anemia Discharge Disposition: Home Discharge Instruct/Medications Diet: Regular Activity: No Restrictions, As Tolerated Follow Up/Referral: f/u with PCP within 1 week f/u wtih surgeon within 1 week Medications: Cephalexin Scheduled Amlodipine Besylate (Amlodipine Besylate), 5 MG PO DAILY, (Reported) Atorvastatin Calcium (Atorvastatin Calcium), 20 MG PO DAILY, (Reported) Cephalexin Monohydrate (Cephalexin), 1 CAP PO TID Finasteride (Finasteride), 1 TAB PO DAILY, (Reported) Hydrochlorothiazide (Hydrochlorothiazide), 25 MG PO DAILY, (Reported) Losartan Potassium (Losartan Potassium), 25 MG PO DAILY, (Reported) Methimazole (Methimazole), 5 MG PO 2XW, (Reported) Tamsulosin Hcl (Tamsulosin Hcl), 0.4 MG PO QPM, (Reported) Discharge Statement: "Patient was advised to return to the ER or call 911 if any headaches, dizziness, shortness of breath, chest pain, abdominal pain, bleeding, fevers, or worsening of medical condition. Patient was counseled about treatment plan, medications, possible side effects, patientverbalized understanding. All questions were answered to the best of my ability. This discharge took greater then 30 minutes in planning, reviewing documentation, counseling the patient, and discussing with other team members." ASSESSMENT ASSESSMENT Assessment acute metabolic encephalopathy septic shock due to incarcenated inguinal hernia incarcenated inguinal hernia s/p repair Moderate Pleural effusion acute hypoxic resp faiure s/p extubation PADMINI MAHAN RESIDENT Jun 13, 2025 16:16
== END 2025-06-13 18:39 | disposition home or self-care (01) | DRG 853 ==
LOC: ER 14:25 → ICU WEST 21:18 → OVERFLOW 21:18 → UNDOADMIN 21:18 → TELE-CENTR 06-09 13:40 → ICU WEST 06-09 13:45 → TELE-CENTR 06-09 14:21
PROVIDERS: ADMIT Internal Medicine; ATTEND Internal Medicine
PROC: 5A1945Z Respiratory Ventilation, 24-96 Consecutive Hours (ICD-10-PCS; 2025-06-03)
PROC: 0YQ60ZZ Repair Left Inguinal Region, Open Approach (ICD-10-PCS; principal; 2025-06-03 17:54)
PROC: 0BH18EZ Insertion of Endotracheal Airway into Trachea, Via Natural or Artificial Opening Endoscopic (ICD-10-PCS; 2025-06-04)
PROC: 02HV33Z Insertion of Infusion Device into Superior Vena Cava, Percutaneous Approach (ICD-10-PCS; 2025-06-04)
PROC: 0W993ZZ Drainage of Right Pleural Cavity, Percutaneous Approach (ICD-10-PCS; 2025-06-08)
DX: A41.9 Sepsis, unspecified organism (principal); G93.41 Metabolic encephalopathy; R65.21 Severe sepsis with septic shock; J96.02 Acute respiratory failure with hypercapnia; J96.01 Acute respiratory failure with hypoxia; K40.30 Unilateral inguinal hernia, with obstruction, without gangrene, not specified as recurrent; C34.90 Malignant neoplasm of unspecified part of unspecified bronchus or lung; J91.8 Pleural effusion in other conditions classified elsewhere; D50.9 Iron deficiency anemia, unspecified; E11.9 Type 2 diabetes mellitus without complications; I10 Essential (primary) hypertension; E05.90 Thyrotoxicosis, unspecified without thyrotoxic crisis or storm; K74.60 Unspecified cirrhosis of liver; E87.20 Acidosis, unspecified; J98.11 Atelectasis; E87.6 Hypokalemia; E78.5 Hyperlipidemia, unspecified; Z87.891 Personal history of nicotine dependence; Z99.81 Dependence on supplemental oxygen
CPT/HCPCS: 32555; 36415; 36556; 36600; 71045; 74176; 76604; 80048; 80053; 80202; 81001; 82805; 82962; 83036; 83605; 83735; 83986; 84100; 84132; 84439; 84443; 84481; 84484; 85025; 85610; 85730; 86850; 86900; 86901; 87040; 87070; 87071; 87081; 87086; 87205; 89051; 93005; 93306; 94002; 94003; 94640; 96365; 96375; 97110; 97116; 97163; 97530; 99291; 99292; G0378; J1815; J2003; J2250; J2405; J2470; J2543; J2704; J3480; J3490